=== PATIENT | female | born 1935 | race Caucasian/White ===

== ENCOUNTER → 2016-06-22 | Outpatient (CLI) | payer OTHER ==
[~2016-06-22] MED LIST: ACET-1175 PO; CARB25TA12 PO; CHOL100010 PO; CLC100X PO; CLOP1TAB15 PO; CRAN1CAP6 PO; CRDCD180 PO; DLN100 PO; DTR/5 PO; FLV400 PO; FRS/40 PO; GLCSR500 PO; INSDGI SC; LEVE750T PO; LOSA50TA6 PO; METO50TA16 PO; MIRT15TA PO; PANT1TAB48 PO; POLY335025 PO; POTA10TA PO; TRAZ50TA35 PO
== END | disposition home or self-care (01) ==
LOC: C.LABCC 08:19
PROVIDERS: ATTEND Internal Medicine
DX: G40.909 Epilepsy, unspecified, not intractable, without status epilepticus (principal)

== ENCOUNTER → 2016-06-27 | Outpatient (CLI) | payer OTHER | END | disposition home or self-care (01) | LOC: C.LABCC 16:56 | PROVIDERS: ATTEND Internal Medicine | DX: R05 Cough (principal); R09.89 Other specified symptoms and signs involving the circulatory and respiratory systems ==

== ENCOUNTER → 2016-07-15 | Outpatient (CLI) | payer OTHER ==
[2016-07-15 08:56] LABS: BLOOD UREA NITROGEN 31 mg/dl (7-18); BUN/CREATININE RATIO 23.7 (10-20); CARBON DIOXIDE 26 mmol/L (21-32); CHLORIDE 108 mmol/L (98-107); CHOLESTEROL 136 mg/dl (0-200); GLUCOSE 77 mg/dl (70-99); MAGNESIUM 2.5 mg/dl (1.8-2.4); POTASSIUM 4.2 mmol/L (3.5-5.1); SODIUM 142 mmol/L (136-145)
[2016-07-15 09:07] LABS: CHOLESTEROL/HDL RATIO 2.5; HDL CHOLESTEROL 55 mg/dl; LDL CHOLESTEROL CALCULATED 51 mg/dl; TRIGLYCERIDES 148 mg/dl (0-150); VERY LOW DENSITY LIPOPROT CALC 30 mg/dl
[2016-07-15 09:18] LABS: CALCIUM 8.9 mg/dl (8.5-10.1)
== END ==
LOC: C.LABCC 08:26
PROVIDERS: ATTEND Internal Medicine
DX: E78.5 Hyperlipidemia, unspecified (principal); K21.9 Gastro-esophageal reflux disease without esophagitis; G40.909 Epilepsy, unspecified, not intractable, without status epilepticus

== ENCOUNTER → 2016-07-20 | Outpatient (CLI) | payer OTHER ==
[2016-07-20 10:19] LABS: ESTIMATED AVERAGE GLUCOSE 134 mg/dl; HA1C FLAG Normal (Normal)
== END ==
LOC: C.LABCC 08:05
PROVIDERS: ATTEND Internal Medicine
DX: E11.9 Type 2 diabetes mellitus without complications (principal)

== ENCOUNTER → 2016-07-23 | Outpatient (CLI) | payer OTHER ==
[2016-07-23 08:46] LABS: BLOOD UREA NITROGEN 31 mg/dl (7-18); BUN/CREATININE RATIO 28.1 (10-20); CARBON DIOXIDE 27 mmol/L (21-32); CHLORIDE 108 mmol/L (98-107); GLUCOSE 79 mg/dl (70-99); MAGNESIUM 2.5 mg/dl (1.8-2.4); POTASSIUM 4.4 mmol/L (3.5-5.1); SODIUM 142 mmol/L (136-145)
== END ==
LOC: C.LABCC 08:21
PROVIDERS: ATTEND Internal Medicine
DX: N28.9 Disorder of kidney and ureter, unspecified (principal); R79.0 Abnormal level of blood mineral

== ENCOUNTER → 2016-09-03 | Outpatient (CLI) | payer OTHER ==
[~2016-09-03] MED LIST changes: -DTR/5 PO; +OXYB5TAB74 PO
== END ==
LOC: C.LABCC 07:38
PROVIDERS: ATTEND Internal Medicine
DX: R56.9 Unspecified convulsions (principal)

== ENCOUNTER → 2016-11-22 | Outpatient (CLI) | payer OTHER ==
[2016-11-22 10:09] LABS: ESTIMATED AVERAGE GLUCOSE 131 mg/dl; HA1C FLAG Normal (Normal)
== END ==
LOC: C.LABCC 09:05
PROVIDERS: ATTEND Internal Medicine
DX: E11.9 Type 2 diabetes mellitus without complications (principal)

== ENCOUNTER → 2016-12-24 | Outpatient (CLI) | payer OTHER ==
[~2016-12-24] MED LIST changes: +DTR/5 PO; -OXYB5TAB74 PO
--- NOTE | 2016-12-24 14:28 | DIAGNOSTIC IMAGING REPORT ---
MRI OF THE LEFT SHOULDER CLINICAL HISTORY: Left shoulder pain. COMPARISON STUDY: Radiograph of left shoulder dated 08/18/2011. TECHNIQUE: MRI of the left shoulder was performed utilizing various T1 and T2 weighted sequences in the axial, sagittal, coronal planes. IV contrast was not administered for this examination. Note that interpretation is suboptimal without current plain film correlate. The examination is also significantly degraded by motion artifact. FINDINGS: Rotator cuff: There is tendinopathy and full-thickness rupture of the supraspinatus and infraspinatus tendons. These are retracted by at least 3.5 cm. There is high-grade partial-thickness tearing of the subscapularis tendon. Some fibers remain intact. The teres minor is intact as imaged. There is and subacromial or subdeltoid bursal fluid. Productive change is seen at the acromioclavicular joint. Biceps tendon: There is tendinopathy with high-grade tearing of the long head of the biceps tendon. At least some fibers are likely intact, and the tendon is located within the bicipital groove. The anchor is not well visualized. Labrum: Circumferential labral tearing is suspected. This is not well assessed. Shoulder joint: There is a large joint effusion. Loose bodies/debris is noted within the inferior joint space, best seen on coronal image #8. There is superior subluxation of the humeral head. Arthritic changes noted in the glenoid with extensive cartilage loss. Arthritic change and marrow edema is also seen in the greater tuberosity of the humeral head. Musculature and soft tissues: Intramuscular edema is suggested involving the bodies of supraspinatous and interspinous. These muscles appear atrophic. IMPRESSION: 1. Severely motion compromised examination. 2. There is full-thickness rupture with retraction of the supraspinatus and infraspinatus tendons. 3. There is tendinopathy with high-grade partial-thickness tearing of the long head of the biceps tendon. 4. There is tendinopathy with high-grade partial-thickness tearing of the subscapularis tendon. 5. There is circumferential tearing/maceration of the glenoid labrum. 6. Joint effusion with joint bodies/debris. 7. Advanced arthritic changes seen at the glenohumeral articulation. 8. Edema and atrophy are suggested within the bodies of the supraspinatus and infraspinatus muscles Electronically signed by: Marcos Powers M.D. 12/24/2016 2:27 PM Dictated Date/Time: 12/24/2016 2:19 PM
== END | disposition home or self-care (01) ==
LOC: C.MRI 12:43
PROVIDERS: ATTEND Physician Assistant
DX: M75.82 Other shoulder lesions, left shoulder (principal)

== ENCOUNTER → 2016-12-31 | Outpatient (CLI) | payer OTHER ==
[2016-12-31 17:54] LABS: BASO % 0.4 %; BASO ABS # 0.03 K/uL (0-0.2); COMPLETE YES; EOS % 1.6 %; HEMATOCRIT 36.9 % (37-47); IG% 0.3 %; LYMPH % 19.5 %; LYMPH ABS # 1.44 K/uL (1.2-3.4); MEAN CELL VOLUME 94.6 fL (80-100); MEAN CORPUSCULAR HEMOGLOBIN 31.5 pg (25-34); MEAN CORPUSCULAR HGB CONC 33.3 g/dl (32-36); MEAN PLATELET VOLUME 9.5 fL (7.4-10.4); MONO % 9.1 %; NEUT % 69.1 %; PLATELET COUNT 267 K/uL (130-400)
[2016-12-31 18:34] LABS: ALT/SGPT 9 U/L (12-78); BLOOD UREA NITROGEN 24 mg/dl (7-18); BUN/CREATININE RATIO 19.8 (10-20); CALCIUM 8.9 mg/dl (8.5-10.1); CARBON DIOXIDE 22 mmol/L (21-32); CHLORIDE 106 mmol/L (98-107); CREATININE 1.21 mg/dl (0.60-1.20); GLUCOSE 113 mg/dl (70-99); POTASSIUM 4.6 mmol/L (3.5-5.1); SODIUM 140 mmol/L (136-145)
[2016-12-31 18:44] LABS: ALB/GLOB RATIO 1.1 (0.9-2); ALKALINE PHOSPHATASE 103 U/L (45-117); AST/SGOT 20 U/L (15-37)
== END ==
LOC: C.LABCC 17:01
PROVIDERS: ATTEND Internal Medicine
DX: M62.81 Muscle weakness (generalized) (principal); R20.0 Anesthesia of skin

== ENCOUNTER → 2017-01-25 | Outpatient (CLI) | payer OTHER | LOC: C.LABCC 08:03 | PROVIDERS: ATTEND Internal Medicine | DX: R53.1 Weakness (principal) ==

== ENCOUNTER → 2017-01-27 | Outpatient (CLI) | payer OTHER ==
[2017-01-27 00:37] LABS: MANUAL MICROSCOPIC REQUIRED? NO; REVIEW REQ? NO; URINE APPEARANCE CLEAR (CLEAR); URINE BILIRUBIN NEG (NEG); URINE COLOR DK YELLOW; URINE NITRITE NEG (NEG); URINE SPECIFIC GRAVITY 1.024 (1.000-1.030); UROBILINOGEN NEG (NEG); ZZURINE CULT IF INDIC CATH NO
== END ==
LOC: C.LABCC 15:04
PROVIDERS: ATTEND Internal Medicine
DX: R41.82 Altered mental status, unspecified (principal); R44.3 Hallucinations, unspecified

== ENCOUNTER → 2017-02-15 | Outpatient (CLI) | payer OTHER ==
[~2017-02-15] MED LIST changes: +PANT1TAB3 PO; -PANT1TAB48 PO
== END | disposition home or self-care (01) ==
LOC: C.PATHSPEC 17:46
PROVIDERS: ATTEND Dermatology
DX: C44.622 Squamous cell carcinoma of skin of right upper limb, including shoulder (principal)

== ENCOUNTER → 2017-02-17 | Outpatient (CLI) | payer OTHER ==
[2017-02-17 08:25] LABS: BLOOD UREA NITROGEN 25 mg/dl (7-18); BUN/CREATININE RATIO 16.6 (10-20); CALCIUM 8.8 mg/dl (8.5-10.1); CARBON DIOXIDE 24 mmol/L (21-32); CHLORIDE 106 mmol/L (98-107); CREATININE 1.49 mg/dl (0.60-1.20); GLUCOSE 107 mg/dl (70-99); SODIUM 138 mmol/L (136-145)
== END ==
LOC: C.LABCC 07:55
PROVIDERS: ATTEND Internal Medicine
DX: L03.90 Cellulitis, unspecified (principal)

== ENCOUNTER → 2017-02-21 | Outpatient (CLI) | payer OTHER ==
[2017-02-21 08:29] LABS: BASO % 0.2 %; BASO ABS # 0.02 K/uL (0-0.2); COMPLETE YES; EOS % 3.2 %; HEMATOCRIT 35.4 % (37-47); IG% 0.2 %; LYMPH % 23.4 %; LYMPH ABS # 2.02 K/uL (1.2-3.4); MEAN CELL VOLUME 96.7 fL (80-100); MEAN CORPUSCULAR HEMOGLOBIN 31.7 pg (25-34); MEAN CORPUSCULAR HGB CONC 32.8 g/dl (32-36); MEAN PLATELET VOLUME 9.9 fL (7.4-10.4); MONO % 10.7 %; NEUT % 62.3 %; PLATELET COUNT 254 K/uL (130-400); RED BLOOD COUNT 3.66 M/uL (4.2-5.4); WHITE BLOOD COUNT 8.63 K/uL (4.8-10.8)
== END ==
LOC: C.LABCC 08:01
PROVIDERS: ATTEND Internal Medicine
DX: R79.89 Other specified abnormal findings of blood chemistry (principal)

== ENCOUNTER → 2017-03-01 | Outpatient (CLI) | payer OTHER ==
[2017-03-01 10:23] LABS: BLOOD UREA NITROGEN 23 mg/dl (7-18); CARBON DIOXIDE 28 mmol/L (21-32); CREATININE 1.09 mg/dl (0.60-1.20); GLUCOSE 91 mg/dl (70-99); POTASSIUM 4.7 mmol/L (3.5-5.1); SODIUM 138 mmol/L (136-145)
--- NOTE | 2017-03-04 12:56 | CODING QUERY NO DIAGNOSIS ---
TREATMENT RENDERED WITHOUT A DIAGNOSIS Dr. Jasso, To promote full compliance with coding requirements relating to patient care, physician participation is requested in all cases of rehab department manager uncertainty. Please assist us with providing a diagnosis/symptom for the test(s) below: A diagnosis/symptom was not documented on your Order. A valid diagnosis/symptom is required to bill all insurances. Please remember that we are unable to code a diagnosis of rule out, probable, possible, questionable, or suspected. Tests that require a diagnosis: * BMP DIAGNOSIS: DATE OF SERVICE: 03/01/17 Provider Signature: Date: Thank you Johnny Garcia [facility] Information Management Once completed, please kindly fax back to [phone] For questions please call [phone]
== END | disposition home or self-care (01) ==
LOC: C.LABCC 09:41
PROVIDERS: ATTEND Internal Medicine
DX: N17.9 Acute kidney failure, unspecified (principal)

== ENCOUNTER → 2017-03-15 | Outpatient (CLI) | payer OTHER ==
[2017-03-15 18:35] LABS: INFLUENZA B ANTIGEN Neg for Influ B (NEG)
== END | disposition home or self-care (01) ==
LOC: C.LABCC 17:37
PROVIDERS: ATTEND Internal Medicine
DX: R05 Cough (principal)

== ENCOUNTER → 2017-03-17 | Outpatient (CLI) | payer OTHER ==
[2017-03-17 18:30] LABS: ALBUMIN 2.9 gm/dl (3.4-5.0); ALT/SGPT 15 U/L (12-78); AST/SGOT 26 U/L (15-37); BLOOD UREA NITROGEN 16 mg/dl (7-18); CARBON DIOXIDE 19 mmol/L (21-32); CREATININE 0.96 mg/dl (0.60-1.20); GLUCOSE 101 mg/dl (70-99)
[2017-03-17 18:32] LABS: ALKALINE PHOSPHATASE < 10 U/L (45-117); TOTAL PROTEIN 6.8 gm/dl (6.4-8.2)
[2017-03-17 18:40] LABS: SODIUM 133 mmol/L (136-145)
[2017-03-17 19:13] LABS: CALCIUM < 5.0 mg/dl (8.5-10.1); POTASSIUM > 10.0 mmol/L (3.5-5.1)
== END ==
LOC: C.LABCC 17:52
PROVIDERS: ATTEND Internal Medicine
DX: J11.1 Influenza due to unidentified influenza virus with other respiratory manifestations (principal)

== ENCOUNTER → 2017-03-18 | Outpatient (CLI) | payer OTHER ==
[2017-03-18 09:31] LABS: BASO % 0.4 %; BASO ABS # 0.04 K/uL (0-0.2); EOS % 1.4 %; EOS ABS # 0.14 K/uL (0-0.5); HEMATOCRIT 33.8 % (37-47); HEMOGLOBIN 11.1 g/dL (12.0-16.0); IG# 0.04 K/uL (0.00-0.02); LYMPH % 15.8 %; LYMPH ABS # 1.55 K/uL (1.2-3.4); MEAN CELL VOLUME 95.8 fL (80-100); MEAN CORPUSCULAR HEMOGLOBIN 31.4 pg (25-34); MEAN CORPUSCULAR HGB CONC 32.8 g/dl (32-36); MEAN PLATELET VOLUME 10.1 fL (7.4-10.4); MONO % 10.3 %; MONO ABS # 1.01 K/uL (0.11-0.59); NEUT % 71.7 %; NEUT ABS # 7.06 K/uL (1.4-6.5); PLATELET COUNT 262 K/uL (130-400); RED CELL DISTRIBUTION WIDTH CV 13.1 % (11.5-14.5); RED CELL DISTRIBUTION WIDTH SD 45.3 fL (36.4-46.3); WHITE BLOOD COUNT 9.84 K/uL (4.8-10.8)
[2017-03-18 09:40] LABS: ALBUMIN 2.6 gm/dl (3.4-5.0); ALT/SGPT 8 U/L (12-78); AST/SGOT 19 U/L (15-37); BLOOD UREA NITROGEN 15 mg/dl (7-18); CARBON DIOXIDE 25 mmol/L (21-32); CREATININE 0.89 mg/dl (0.60-1.20); GLUCOSE 68 mg/dl (70-99)
[2017-03-18 09:43] LABS: TOTAL PROTEIN 6.4 gm/dl (6.4-8.2)
[2017-03-18 10:33] LABS: POTASSIUM 3.8 mmol/L (3.5-5.1); SODIUM 140 mmol/L (136-145)
[2017-03-18 10:34] LABS: CALCIUM 8.7 mg/dl (8.5-10.1)
[2017-03-18 10:35] LABS: ALKALINE PHOSPHATASE 88 U/L (45-117)
== END | disposition home or self-care (01) ==
LOC: C.LABCC 08:55
PROVIDERS: ATTEND Internal Medicine
DX: J11.1 Influenza due to unidentified influenza virus with other respiratory manifestations (principal); G40.909 Epilepsy, unspecified, not intractable, without status epilepticus

== ENCOUNTER → 2017-04-05 | Outpatient (CLI) | payer OTHER ==
[2017-04-05 08:47] LABS: HEMOGLOBIN A1C 6.1 % (4.5-5.6)
== END ==
LOC: C.LABCC 08:01
PROVIDERS: ATTEND Internal Medicine
DX: E11.9 Type 2 diabetes mellitus without complications (principal)

== ENCOUNTER → 2017-05-24 | Outpatient (CLI) | payer OTHER | END | disposition home or self-care (01) | LOC: C.PATHSPEC 17:54 | PROVIDERS: ATTEND Plastic Surgery | DX: D04.61 Carcinoma in situ of skin of right upper limb, including shoulder (principal) ==

== ENCOUNTER → 2017-10-05 | Outpatient (CLI) | payer OTHER ==
[2017-10-05 08:40] LABS: BASO % 0.5 %; BASO ABS # 0.04 K/uL (0-0.2); EOS % 3.7 %; EOS ABS # 0.27 K/uL (0-0.5); HEMATOCRIT 33.6 % (37-47); HEMOGLOBIN 11.5 g/dL (12.0-16.0); IG# 0.02 K/uL (0.00-0.02); LYMPH % 24.6 %; LYMPH ABS # 1.81 K/uL (1.2-3.4); MEAN CELL VOLUME 94.9 fL (80-100); MEAN CORPUSCULAR HEMOGLOBIN 32.5 pg (25-34); MEAN CORPUSCULAR HGB CONC 34.2 g/dl (32-36); MONO % 8.1 %; NEUT % 62.8 %; NEUT ABS # 4.63 K/uL (1.4-6.5); PLATELET COUNT 282 K/uL (130-400); RED CELL DISTRIBUTION WIDTH CV 14.1 % (11.5-14.5); WHITE BLOOD COUNT 7.37 K/uL (4.8-10.8)
[2017-10-05 08:52] LABS: ALBUMIN 3.1 gm/dl (3.4-5.0); ALKALINE PHOSPHATASE 98 U/L (45-117); ALT/SGPT 8 U/L (12-78); AST/SGOT 17 U/L (15-37); BLOOD UREA NITROGEN 28 mg/dl (7-18); CARBON DIOXIDE 26 mmol/L (21-32); CREATININE 1.09 mg/dl (0.60-1.20); GLUCOSE 83 mg/dl (70-99); POTASSIUM 4.1 mmol/L (3.5-5.1); SODIUM 139 mmol/L (136-145); TOTAL PROTEIN 6.6 gm/dl (6.4-8.2)
[2017-10-05 09:45] LABS: HEMOGLOBIN A1C 6.1 % (4.5-5.6)
== END ==
LOC: C.LABCC 08:26
PROVIDERS: ATTEND Internal Medicine
DX: E11.9 Type 2 diabetes mellitus without complications (principal); R56.9 Unspecified convulsions

== ENCOUNTER 2018-07-22 22:12 | Inpatient (IN) ==
[2018-07-22] MEDS ORDERED: VANCOMYCIN CONSULT ACTIVE PRN (22:29)
[2018-07-22] MEDS ORDERED: VANCOMYCIN HCL 2,000 MG in SODIUM CHLORIDE 0.9% 500 ML IV ONE (22:29)
[2018-07-22] MEDS ORDERED: SODIUM CHLORIDE 0.9% 1000ML 1,000 ML IV ONE (22:29)
[2018-07-22] MEDS ORDERED: PIPERACILL/TAZOBAC CONSULT ACTIVE PRN (22:29)
[2018-07-22] MEDS ORDERED: PIPERACILLIN/TAZOBACTAM 4.5 GM/120 ML BAG IV ONE (22:29)
[2018-07-22] MEDS ORDERED: ALBUT/IPRATROP 3MG/0.5MG NEB 3 ML VIAL NEB STA (22:39)
[2018-07-22] MEDS ORDERED: LEVOFLOXACIN/D5W 750 MG/150 ML BAG IV STA (22:39)
[2018-07-22 23:09] LABS: Hematocrit (blood only) 31.6 % (37-47); Hemoglobin 11.1 g/dL (12.0-16.0); Mean Corpuscular Hgb Conc 35.1 g/dL (32-36); Mean Platelet Volume 9.6 fL (7.4-10.4); Platelet Count 256 K/uL (130-400); RDW Standard Deviation 44.6 fL (36.4-46.3); Red Blood Count 3.36 M/uL (4.2-5.4); White Blood Count 21.16 K/uL (4.8-10.8)
[2018-07-22 23:11] LABS: Base Excess VBG -1.1 mEq/L; Oxygen Saturation VBG 90.7 %; pH VBG 7.46 (7.36-7.41)
[2018-07-22 23:20] LABS: INR 1.2 (0.9-1.1); Partial Thromboplastin Ratio 1.3; Partial Thromboplastin Time 34.6 Seconds (21.0-31.0); Prothrombin Time 12.3 Seconds (9.0-12.0)
[2018-07-22 23:28] LABS: Alanine Aminotransferase < 6 U/L (12-78); Albumin Level 2.4 gm/dl (3.4-5.0); Aspartate Aminotransferase 24 U/L (15-37); Blood Urea Nitrogen 31 mg/dl (7-18); Calcium 8.7 mg/dl (8.5-10.1); Carbon Dioxide 25 mmol/L (21-32); Chloride 105 mmol/L (98-107); Est GFR (African American) 42.6; Est GFR (Non-African American) 36.7; Glucose 151 mg/dl (70-99); Potassium 4.6 mmol/L (3.5-5.1); Sodium 136 mmol/L (136-145)
[2018-07-22 23:31] LABS: Albumin Globulin Ratio 0.5 (0.9-2); Alkaline Phosphatase 109 U/L (45-117); Bilirubin,Total 0.5 mg/dl (0.2-1); Globulin 4.4 gm/dl (2.5-4.0); Total Protein 6.8 gm/dl (6.4-8.2)
[2018-07-22 23:34] LABS: Appearance Urine Turbid (Clear); Bacteria Urine Automated 2+ (Negative); Bilirubin Urine Negative (Negative); Color Urine Dark Yellow; Epithelial Cell Urine Auto >30 /lpf (0-5); Glucose Urine UA Negative (Negative); Ketones Urine Trace (Negative); Leukocyte Esterase Urine 3+ (Negative); Nitrite Urine Positive (Negative); Protein Urine 2+ (Negative); Specific Gravity Urine 1.022 (1.000-1.030); Urobilinogen Urine Negative (Negative); WBC Urine Automated >30 /hpf (0-5)
[2018-07-22 23:53] LABS: Basophils # (auto) 0.03 K/uL (0-0.2); Basophils % (auto) 0.1 %; Dohle Bodies 1+; Immature Granulocytes # (auto) 0.09 K/uL (0.00-0.02); Immature Granulocytes % (auto) 0.4 %; Lymphocytes # (auto) 0.56 K/uL (1.2-3.4); Lymphocytes % (auto) 2.6 %; Monocytes # (auto) 1.39 K/uL (0.11-0.59); Monocytes % (auto) 6.6 %; Neutrophils # (auto) 19.09 K/uL (1.4-6.5); Neutrophils % (auto) 90.3 %
[2018-07-23 00:10] LABS: Cast Urine Automated 0 /lpf (0-5)
--- NOTE | 2018-07-23 03:30 | History & Physical Report ---
Date of Service July 23, 2018 Assessment & Plan (1) Sepsis: 83-year-old female with history of Parkinson's, CVA, seizures, type 2 diabetes, dementia presents with fevers and concern for sepsis secondary to pneumonia. Patient is a resident of [facility]. Concern for sepsis secondary to healthcare associated pneumonia versus UTI Right-sided rhonchi and wheezing, chest x-ray showed some right-sided infiltrates Continuing Vanco/Zosyn Albuterol nebs every 4 scheduled Continuing fluids, normal saline 80 cc/h Blood cultures/urine cultures ordered History of Parkinson's Continue carbidopa/levodopa Continue Nuplavid History of CVA Continue clopidogrel Hypertension Continue furosemide, losartan, metoprolol Diabetes Continue insulin GERD Continue PPI DVT prophylaxis Heparin subcu CODE STATUS DNR/DNI (2) Pneumonia: (3) UTI (urinary tract infection): (4) Parkinson disease: (5) Seizures: (6) Metabolic encephalopathy: (7) Diabetes mellitus: (8) GERD (gastroesophageal reflux disease): (9) HTN (hypertension): History of Present Illness Primary Care Provider: [facility] 83-year-old female with past medical history of Parkinson's, CVA, seizures, type 2 diabetes presents from [facility]. Patient is accompanied with her daughter who states that she is been treated for a UTI over the past 1 week. Her daughter states that she has confusion at baseline, but has been more confused and irritable over the past week. She began to have fevers last night, high of 102 Fahrenheit. Patient is a poor historian, but denies having any dys uria, shortness of breath, change in appetite, nausea/vomiting/diarrhea. The daughter states that she does not have any bedsores and gets regular skin checks at [facility]. Patient does endorse a cough recently. Today she is on 2 L nasal cannula. No oxygen requirement at home. Allergies Allergy/AdvReac Type Severity Reaction Status Date / Time No Known Allergies Allergy Unverified 07/23/18 01:01 Home Medications Home Medications Medication Instructions Recorded Confirmed Type B complex with C#20-folic acid 1 cap PO DAILY 11/16/17 07/23/18 History [Renal Caps] acetaminophen 650 mg PO Q8 PRN 11/16/17 07/23/18 History alum-mag hydroxide-simeth [Antacid 30 ml PO Q4H PRN 11/16/17 07/23/18 History Liquid] bisacodyl [Dulcolax (bisacodyl)] 10 mg [facility] DIRECTED 11/16/17 07/23/18 History carbidopa-levodopa 1.5 tab PO QID 11/16/17 07/23/18 History cholecalciferol (vitamin D3) 5 tab PO DAILY 11/16/17 07/23/18 History [Vitamin D3] clopidogrel 75 mg PO DAILY 11/16/17 07/23/18 History docusate sodium 100 mg PO BID 11/16/17 07/23/18 History folic acid 0.4 mg PO DAILY 11/16/17 07/23/18 History furosemide 20 mg PO DAILY 11/16/17 07/23/18 History hydrocodone-acetaminophen 2 tab PO BID 11/16/17 07/23/18 History insulin detemir U-100 [Levemir 2 unit SUBCUT PM 11/16/17 07/23/18 History U-100 Insulin] insulin lispro [Humalog U-100 1 sliding scale dose SUBCUT UD 11/16/17 07/23/18 History Insulin] ketotifen fumarate 1 drp OPHTHALMIC (EYE) Q12H 11/16/17 07/23/18 History levetiracetam 500 mg PO BID 11/16/17 07/23/18 History losartan 25 mg PO DAILY 11/16/17 07/23/18 History losartan 50 mg PO DAILY 11/16/17 07/23/18 History magnesium hydroxide [Milk of 30 ml PO DIRECTED PRN 11/16/17 07/23/18 History Magnesia] metoprolol tartrate 50 mg PO Q12H 11/16/17 07/23/18 History mirtazapine 15 mg PO HS 11/16/17 07/23/18 History pantoprazole 40 mg PO DAILY 11/16/17 07/23/18 History peg 400-propylene glycol [Systane 1 drp OPB TID 11/16/17 07/23/18 History Ultra] phenytoin sodium extended 100 mg PO BID 11/16/17 07/23/18 History polyethylene glycol 3350 14 g PO DIRECTED 11/16/17 07/23/18 History sodium chloride 1 drp OPB BID 11/16/17 07/23/18 History acetaminophen [Tylenol] 650 mg PO QPM 07/23/18 07/23/18 History cefuroxime axetil 500 mg PO BID 07/23/18 07/23/18 History pimavanserin [Nuplazid] 34 mg PO QAM 07/23/18 07/23/18 History potassium chloride 10 meq PO BID 07/23/18 07/23/18 History Past Med/Surg History Medical History Parkinson disease Seizure Stroke TIA (transient ischemic attack) Social History Preferred Language: Bengali Communication Ability: Effective Beliefs That Will Affect Care: None Current Living Situation: Residential Other Information That Helps Us Care for You: No Feels Safe at Home: Yes Safety Concerns: Feels Safe At This Time Smoking Status: Former smoker Hx Alcohol Use: No Hx Substance Use: No Review of Systems Review of Systems: All systems reviewed & are unremarkable except as noted in HPI & below Physical Exam Constitutional: well developed, well nourished and + ill appearing; no acute distress Eyes: PERRL, conjunctivae normal, anicteric sclerae ENMT: external ear and nose normal, oropharynx normal Neck: trachea midline, no thyromegaly Respiratory: normal respiratory effort; no respiratory distress, no labored breathing, no retractions and no cough Auscultation: + rhonchi (right-sided ) and + wheezes (right sided ) Cardiovascular: RRR, no murmur, no edema Gastrointestinal (Abdomen): normal bowel sounds, soft, nontender, no hepatosplenomegaly Musculoskeletal: no cyanosis or clubbing, extremities motor strength 5/5 Skin: no rashes, warm and dry Neurologic: PERRL, EOMI, accommodation nl, no face palsy, no dysarthria Psychiatric: Orientation: alert; + not oriented x 3 Results & Data Vital Signs (Past 12 Hours) Vital Signs Temp Pulse Pulse Resp BP BP Pulse Ox 07/23/18 01:39 82 22 146/85 H 94 07/23/18 00:34 89 22 126/66 92 07/22/18 23:50 90 20 128/43 L 95 07/22/18 22:52 72 16 89 L 07/22/18 22:29 89 L 07/22/18 22:19 37.4 C 77 25 H 84/59 L 88 L Supervising Physician Co-Signing Physician Notes Attending addendum: I have physically seen this patient, have supervised the medical residents activities, and agree with the H&P unless as otherwise noted. Assessment and Plan: Sepsis- HCAP/UTI. Empiric treatment with vancomycin IV and Zosyn IV. Follow sputum culture and urine culture and sensitivity. NSS 80 mils per hour. Duonebs every 4 hours while awake and every 2 hours when necessary.. History CVA/hypertension- Continue clopidogrel, furosemide, losartan and metoprolol. Remainder of orders and notations as noted. Resident Activity Tracking Resident Involvement: Resident Care Provided Care Provided: Adult Hospital Medicine (1) UTI (urinary tract infection) Hematuria presence: with hematuria Urinary tract infection type: site unspecified Qualified Code(s): N39.0 - Urinary tract infection, site not specified; R31.9 - Hematuria, unspecified (2) Sepsis Sepsis type: sepsis due to unspecified organism Qualified Code(s): A41.9 - Sepsis, unspecified organism (3) Pneumonia Pneumonia type: due to unspecified organism
[2018-07-23] MEDS ORDERED: MAGNESIUM HYDROXIDE SUSP 30 ML UDC PO PRN (04:17)
[2018-07-23] MEDS ORDERED: PIPERACILLIN/TAZOBACTAM 4.5 GM in DEXTROSE 5% 100 ML IV STA (04:17)
[2018-07-23] MEDS ORDERED: ACETAMINOPHEN 325 MG TAB PO PRN (04:17)
[2018-07-23] MEDS ORDERED: POLYETHYLENE (MIRALAX) 17 GM PACK PO PRN (04:17)
[2018-07-23] MEDS ORDERED: VANCOMYCIN CONSULT ACTIVE PRN (04:17)
[2018-07-23] MEDS ORDERED: PIPERACILL/TAZOBAC CONSULT ACTIVE PRN (04:17)
[2018-07-23] MEDS: SODIUM CHLORIDE 0.9% 1000ML 1,000 ML IV SCH ×2 (04:40→16:02)
[2018-07-23] MEDS: PIPERACILLIN/TAZOBACTAM 3.375 GM in DEXTROSE 5% 100 ML IV SCH ×3 (04:45→19:34)
[2018-07-23] MEDS ORDERED: GLUCOSE 10 TABS/TUBE PO PRN (05:00)
[2018-07-23] MEDS ORDERED: CARBOHYDRATES FOR HYPOGLYCEMIA PO PRN (05:00)
[2018-07-23] MEDS ORDERED: GLUCOSE 40% GEL 15 GM TUBE PO PRN (05:00)
[2018-07-23] MEDS ORDERED: DEXTROSE 50% 50 ML SYRINGE IV PRN (05:00)
[2018-07-23] MEDS ORDERED: GLUCAGON FOR INJ 1 MG VIAL SQ PRN (05:00)
[2018-07-23] MEDS: ALBUTEROL 0.083% NEBU SOLN 3 ML VIAL NEB SCH ×6 (05:27→23:10)
[2018-07-23 07:02] LABS: Hematocrit (blood only) 31.5 % (37-47); Hemoglobin 10.5 g/dL (12.0-16.0); Mean Corpuscular Hgb Conc 33.3 g/dL (32-36); Mean Corpuscular Volume 95.7 fL (80-100); Mean Platelet Volume 9.4 fL (7.4-10.4); Platelet Count 232 K/uL (130-400); RDW Coefficient of Variation 13.1 % (11.5-14.5); RDW Standard Deviation 45.7 fL (36.4-46.3); Red Blood Count 3.29 M/uL (4.2-5.4); White Blood Count 18.65 K/uL (4.8-10.8)
[2018-07-23 07:28] LABS: BUN Creatinine Ratio 19.5 (10-20); Calcium 8.4 mg/dl (8.5-10.1); Est GFR (African American) 42.6; Est GFR (Non-African American) 36.7; Potassium 4.1 mmol/L (3.5-5.1)
[2018-07-23] MEDS: PANTOprazole 40 MG TAB PO SCH (07:34)
[2018-07-23] MEDS: levETIRAcetam 500 MG TAB PO SCH ×2 (07:35→21:02)
[2018-07-23] MEDS: CLOPIDOGREL BISULFATE 75 MG TAB PO SCH (07:35)
[2018-07-23] MEDS: FOLIC ACID 400 MCG TAB PO SCH (07:35)
[2018-07-23] MEDS: METOPROLOL TARTRATE 50 MG TAB PO SCH ×2 (07:35→21:04)
[2018-07-23] MEDS: CARBIDOPA/LEVODOPA 25/100MG TAB PO SCH ×4 (07:36→21:05)
[2018-07-23] MEDS: LOSARTAN POTASSIUM 50 MG TAB PO SCH (07:36)
[2018-07-23] MEDS: DOCUSATE SODIUM 100 MG CAP PO SCH ×2 (07:36→21:01)
[2018-07-23] MEDS: POTASSIUM CHLORIDE 10 MEQ TABCR PO SCH ×2 (07:36→21:02)
[2018-07-23] MEDS: LOSARTAN POTASSIUM 25 MG TAB PO SCH (07:38)
[2018-07-23] MEDS: FUROSEMIDE 20 MG TAB PO SCH (07:38)
[2018-07-23] MEDS: HEPARIN SOD 5,000 UNIT/0.5 ML VIAL SQ SCH ×2 (07:39→21:01)
[2018-07-23] MEDS: PHENYTOIN SODIUM ER 100 MG CAP PO SCH ×2 (07:39→21:01)
[2018-07-23] MEDS: SODIUM CHLORIDE 5% OP SOLN 15 ML BTL OPB SCH ×2 (07:39→21:04)
[2018-07-23] MEDS ORDERED: HYDROCODONE/ACETAMOPHEN 5/325MG TAB PO ONE (07:44)
[2018-07-23] MEDS: HYDROCODONE/ACETAMOPHEN 5/325MG TAB PO SCH ×2 (07:45→21:07)
--- NOTE | 2018-07-23 08:05 | Hospitalist Progress Note ---
Date of Service July 23, 2018 Assessment & Plan (1) Sepsis: 83-year-old female with history of Parkinson's, CVA, seizures, type 2 diabetes, dementia presents with fevers and concern for sepsis secondary to pneumonia. Patient is a resident of [facility]. Concern for sepsis secondary to healthcare associated pneumonia versus UTI, urine cuture from 07/21 with e coli sensitivities pending mrsa nasal swab is negative Right-sided rhonchi and wheezing, chest x-ray showed some right-sided infiltrates Continuing Zosyn Albuterol nebs every 4 scheduled Continuing fluids, normal saline 80 cc/h Blood cultures/urine cultures ordered History of Parkinson's Continue carbidopa/levodopa Continue Nuplavid History of CVA Continue clopidogrel Hypertension Continue furosemide, losartan, metoprolol Diabetes Continue insulin GERD Continue PPI DVT prophylaxis Heparin subcu CODE STATUS DNR/DNI (2) Pneumonia: (3) UTI (urinary tract infection): (4) Parkinson disease: (5) Seizures: (6) Metabolic encephalopathy: (7) Diabetes mellitus: (8) GERD (gastroesophageal reflux disease): (9) HTN (hypertension): Subjective Patient is fatigued from being up most of the night she does have a loose productive cough. She is having also some increased urination dysuria. Working diagnosis on admission is both right middle to lower lobe lung infiltrate seen on chest x-ray and also possible UTI. Therefore she remains on vancomycin and Zosyn although her nasal swab is been negative Review of Systems Review of Systems: ROS: well nourished well developed. She is fatigued No double vision blurry vision No problems with speech or swallowing No palpitations, chest pain or pressure No Wheezing or breathing issues No abdominal pain nausea vomiting diarrhea changes in appetite or weight Has had some burning urine and urine frequency No focal joint pain or muscle pain No skin rashes or oral lesions No unusual bruising or bleeding No focused back pain or numbness or loss of strength No changes in memory or confusion Physical Exam Physical Exam: The patient appeared well nourished and normally developed. Vital signs as documented. Head exam is unremarkable. normocephalic, atraumatic Neck is without jugular venous distension, thyromegaly, or lymphademopathy Lungs are with rhonchi to the right base area Cardiac exam reveals Rhythm is regular. First and second heart sounds normal. Abdominal exam reveals normal bowel sounds, no masses, no organomegaly, mild suprapubic tenderness Extremities are nonedematous and both pedal pulses are present Neurologic exam is A&Ox3, no focal deficits, strength is equal bilateral Psychologically seems neither anxious or depressed Skin is warm Dry without bruises or lesions Results & Data Vital Signs (Past 12 Hours) Vital Signs Temp Pulse Pulse Resp BP BP Pulse Ox 07/23/18 07:15 81 18 97 07/23/18 06:58 36.7 C 82 21 155/65 H 95 07/23/18 05:28 85 18 91 07/23/18 05:00 93 H 07/23/18 04:20 38.8 C H 101 H 22 131/75 95 07/23/18 01:39 82 22 146/85 H 94 07/23/18 00:34 89 22 126/66 92 07/22/18 23:50 90 20 128/43 L 95 07/22/18 22:52 72 16 89 L 07/22/18 22:29 89 L 07/22/18 22:19 37.4 C 77 25 H 84/59 L 88 L (1) UTI (urinary tract infection) Hematuria presence: with hematuria Urinary tract infection type: site unspecified Qualified Code(s): N39.0 - Urinary tract infection, site not specified; R31.9 - Hematuria, unspecified (2) Sepsis Sepsis type: sepsis due to unspecified organism Qualified Code(s): A41.9 - Sepsis, unspecified organism (3) Pneumonia Pneumonia type: due to unspecified organism
--- NOTE | 2018-07-23 08:19 | XRay Report ---
XR chest 1V portable CLINICAL HISTORY: Sepsis COMPARISON STUDY: Chest radiograph February 04, 2011. FINDINGS: Right mid and lower lung hazy opacity is present. Left lung is clear. There is no pneumotho rax or pleural effusion. There is no evidence for pulmonary edema. Cardiomediastinal silhouette is un remarkable. IMPRESSION: Right lower lung opacity which favors pneumonia. Radiographic follow-up to ensure resolu tion is recommended. Electronically signed by: Nico Lima M.D. 07/23/2018 8:18 AM
[2018-07-23] MEDS ORDERED: BISACODYL 10 MG SUPP PR PRN (09:00)
[2018-07-23 09:08] LABS: Basophils # (auto) 0.02 K/uL (0-0.2); Basophils % (auto) 0.1 %; Immature Granulocytes # (auto) 0.09 K/uL (0.00-0.02); Immature Granulocytes % (auto) 0.5 %; Lymphocytes % (auto) 3.8 %; Neutrophils # (auto) 16.54 K/uL (1.4-6.5); Neutrophils % (auto) 88.6 %
--- NOTE | 2018-07-23 11:51 | Pharmacy Report ---
Pharmacy Abx Initial Consult - Date of Service July 23, 2018 - Pharmacy Dosing Scope Date of Consult: 07/22/18 Consultation requested by: Dr. Ann Pharmacy is consulted to initiate Vancomycin and Zosyn IV dosing therapy, order appropriate labs and adjust drug dose/frequency. - Subjective The patient is a 83 year old F admitted on 07/23/18 03:20. - Objective Height: 5 ft 3 in Weight: 76.3 kg Vital Signs (Past 12hrs): Vital Signs Temp Pulse Pulse Resp BP Pulse Ox 07/23/18 11:20 67 14 98 07/23/18 10:52 36.9 C 69 19 113/56 L 96 07/23/18 07:15 81 18 97 07/23/18 06:58 36.7 C 82 21 155/65 H 95 07/23/18 05:28 85 18 91 07/23/18 05:00 93 H 07/23/18 04:20 38.8 C H 101 H 22 131/75 95 07/23/18 01:39 82 22 146/85 H 94 07/23/18 00:34 89 22 126/66 92 07/22/18 23:50 90 20 128/43 L 95 Lab Results (24hrs): Laboratory Tests (24 Hours) 07/23/18 07/23/18 07/22/18 06:48 06:48 22:46 WBC 18.65 H Neut # (Auto) 16.54 H Creatinine 1.35 H Est Cr Clr Drug Dosing 32.0 Procalcitonin 0.34 07/22/18 07/22/18 22:46 22:46 WBC 21.16 H Neut # (Auto) 19.09 H Creatinine 1.35 H Est Cr Clr Drug Dosing 32.0 Procalcitonin Micro Results: 07/22/18 22:26 Urine Culture - Pending Urine,Straight Cath 07/22/18 22:57 Aerobic Blood Culture - Pending Blood Anaerobic Blood Culture - Pending 07/22/18 22:46 Aerobic Blood Culture - Pending Blood Anaerobic Blood Culture - Pending - Risk Factors for Resistance * Resident in a senior living or extended-care facility - [facility] - Assessment & Plan Assessment 83 year old F on empiric IV Vancomycin and Zosyn for sepsis secondary to pneumonia vs. UTI * Urine cultre from 07/21/18 (prior to admission) grew E. coli - sensitivities pending * MRSA nasal swab negative, unlikely to be MRSA pneumonia * Discussed with Dr. Nelson - he wants to continue both Vancomycin and Zosyn for now. May consider de-escalation tomorrow, pending urine and blood culture results. Plan Vancomycin IV * Estimated PK Parameters: Moose 0.031 hr-1, t1/2 22.4 hr * Loading dose: 2000 mg (~26 mg/kg) IV x 1 was given in the ED on 07/22 @ 2342 * Maintenance dose: 1000 mg IV (~13 mg/kg) every 24 hours * Goal trough level for sepsis secondary to pneumonia/UTI : 15 to 20 mcg/mL * Trough level ordered for 07/25/18 @ 2130 (prior to 3rd dose and therefore not reflective of steady state, but would like to assess dosing regimen earlier due to renal impairment) Piperacillin/tazobactam * 4.5 g bolus administered over 30 minutes, then 3.375 g IV extended infusion every 8 hours for CrCl greater than 20 mL/min Pharmacy will continue to follow and will adjust dose/frequency as necessary. Thank you.
--- NOTE | 2018-07-23 19:37 | Emergency Department Note ---
Entered by Nolvia Ling acting as a scribe for Kimani Ackerman MD History of Present Illness General Chief complaint: Fever Stated complaint: FEVER Time Seen by Provider: 07/22/18 22:28 Source: patient History of Present Illness Onset (ago): day(s) (recently) Location: head Pain Consistency: + other (persistent) Quality: + other (fever) Associated symptoms: + cough (dry) and + other (positive congestion; negative abdominal pain; negative urinary symptoms); no chest pain, no rash and no shortness of breath The patient is a 83 year old white female w/ PMHx of Parkinson's disease, di abetes, HTN, and GERD who presents to the ED w/ CC of a persistent fever beginning recently. The patient states that she is tired. She states that she has had a dry cough and congestion during this time. The patient denies abdominal pain, urinary symptoms, rash, shortness of breath, and chest pain. Home Medications Home Medications Medication Instructions Recorded Confirmed Type B complex with C#20-folic acid 1 cap PO DAILY 11/16/17 07/23/18 History [Renal Caps] acetaminophen 650 mg PO Q8 PRN 11/16/17 07/23/18 History alum-mag hydroxide-simeth [Antacid 30 ml PO Q4H PRN 11/16/17 07/23/18 History Liquid] bisacodyl [Dulcolax (bisacodyl)] 10 mg AK DIRECTED 11/16/17 07/23/18 History carbidopa-levodopa 1.5 tab PO QID 11/16/17 07/23/18 History cholecalciferol (vitamin D3) 5 tab PO DAILY 11/16/17 07/23/18 History [Vitamin D3] clopidogrel 75 mg PO DAILY 11/16/17 07/23/18 History docusate sodium 100 mg PO BID 11/16/17 07/23/18 History folic acid 0.4 mg PO DAILY 11/16/17 07/23/18 History furosemide 20 mg PO DAILY 11/16/17 07/23/18 History hydrocodone-acetaminophen 2 tab PO BID 11/16/17 07/23/18 History insulin detemir U-100 [Levemir 2 unit SUBCUT PM 11/16/17 07/23/18 History U-100 Insulin] insulin lispro [Humalog U-100 1 sliding scale dose SUBCUT UD 11/16/17 07/23/18 H istory Insulin] ketotifen fumarate 1 drp OPHTHALMIC (EYE) Q12H 11/16/17 07/23/18 History levetiracetam 500 mg PO BID 11/16/17 07/23/18 History losartan 25 mg PO DAILY 11/16/17 07/23/18 History losartan 50 mg PO DAILY 11/16/17 07/23/18 History magnesium hydroxide [Milk of 30 ml PO DIRECTED PRN 11/16/17 07/23/18 History Magnesia] metoprolol tartrate 50 mg PO Q12H 11/16/17 07/23/18 History mirtazapine 15 mg PO HS 11/16/17 07/23/18 History pantoprazole 40 mg PO DAILY 11/16/17 07/23/18 History peg 400-propylene glycol [Systane 1 drp OPB TID 11/16/17 07/23/18 History Ultra] phenytoin sodium extended 100 mg PO BID 11/16/17 07/23/18 History polyethylene glycol 3350 14 g PO DIRECTED 11/16/17 07/23/18 History sodium chloride 1 drp OPB BID 11/16/17 07/23/18 History acetaminophen [Tylenol] 650 mg PO QPM 07/23/18 07/23/18 History cefuroxime axetil 500 mg PO BID 07/23/18 07/23/18 History pimavanserin [Nuplazid] 34 mg PO QAM 07/23/18 07/23/18 History potassium chloride 10 meq PO BID 07/23/18 07/23/18 History Allergies Allergy/AdvReac Type Severity Reaction Status Date / Time No Known Allergies Allergy Unverified 07/23/18 01:01 Past Med/Surg History Medical History Parkinson disease Seizure Stroke TIA (transient ischemic attack) Social History Preferred Language: Kittitian Communication Ability: Effective Beliefs That Will Affect Care: None Current Living Situation: Residential Other Information That Helps Us Care for You: No Feels Safe at Home: Yes Safety Concerns: Feels Safe At This Time Smoking Status: Former smoker Hx Alcohol Use: No Hx Substance Use: No Review of Systems See HPI for pertinent positives & negatives. and A total of 10 systems reviewed and were otherwise negative Physical Exam Vital Signs Vital Signs - 24 hr 07/22/18 22:19 07/22/18 22:29 07/22/18 22:52 Temperature 37.4 C Temperature Source Oral Sepsis Recent Fever Within 48 Hours Yes Sepsis Action Taken by Nursing No Action Required Pulse Rate 77 Pulse Rate [Right Finger] 72 Pulse Rhythm [Right Finger] Pulse Strength [Right Finger] Respiratory Rate 25 H 16 Respiratory Effort / Characteristics Non-Labored Spontaneous Respiratory Depth Blood Pressure 84/59 L Blood Pressure [Right Arm] Blood Pressure Mean 67 Blood Pressure Mean [Right Arm] Blood Pressure Position Lying Blood Pressure Position [Right Arm] Pulse Oximetry 88 L 89 L 89 L Oxygen Delivery Method Room Air Room Air Room Air Oxygen Flow Rate 07/22/18 23:50 07/23/18 00:34 07/23/18 01:39 Temperature Temperature Source Sepsis Recent Fever Within 48 Hours Sepsis Action Taken by Nursing Pulse Rate Pulse Rate [Right Finger] 90 89 82 Pulse Rhythm [Right Finger] Regular Pulse Strength [Right Finger] Normal Respiratory Rate 20 22 22 Respiratory Effort / Characteristics Non-Labored Respiratory Depth Normal Blood Pressure Blood Pressure [Right Arm] 128/43 L 126/66 146/85 H Blood Pressure Mean Blood Pressure Mean [Right Arm] 71 86 105 Blood Pressure Position Blood Pressure Position [Right Arm] Lying Lying Pulse Oximetry 95 92 94 Oxygen Delivery Method Nasal Cannula Nasal Cannula Nasal Cannula Oxygen Flow Rate 2 2 GENERAL: Mildly ill in appearance, non-toxic. NC in place. EYE EXAM: Normal conjunctiva. PERRL, no anisocoria and EOM's grossly intact w/o pain. OROPHARYNX: Dry mucus membranes. Grossly normal dentition. NECK: Supple, no nuchal rigidity, no adenopathy, non-tender. no signs of meningismus. LUNGS: Normal chest wall mechanics. Coarse breath sounds throughout. NC in place. HEART: NSR, no MRG. ABDOMEN: Abdomen soft, non-tender, normo-active bowel sounds, no masses, no rebound or guarding. BACK: No CVA TTP. SKIN: No rashes and no bruising. UPPER EXTREMITIES: Upper extremities are grossly normal. LOWER EXTREMITIES: No pitting edema. No calf pain. NEURO EXAM: A&O x3, cranial nerves II-XII grossly intact, normal speech, moves all 4 extremities on command w/o issue. Baseline essential tremor. Course 2234: The patient was evaluated in room B9, and a complete history and physical examination were performed. 0007: I updated the patient about all the results. 0036: I discussed the case with Dr. [facility] Hospitalist who accepts the patient for further evaluation. Administered Medications Acetaminophen (Tylenol) 650 mg PO Q4H PRN PRN Reason: Pain or Fever Stop: 08/22/18 04:16 Last Admin: 07/23/18 04:37 Dose: 650 mg Documented by: [id number] Hydrocodone Bitart/Acetaminophen (Mcfarlan 5/325) 2 tab PO BID [facility] Stop: 08/06/18 08:59 Last Admin: 07/23/18 07:45 Dose: 2 tab Documented by: [id number] Albuterol (Ventolin 0.083% 2.5mg/3ml) 2.5 mg NEB Q4R [facility] Stop: 08/22/18 04:16 Last Admin: 07/23/18 19:00 Dose: 2.5 mg Documented by: [id number] Admin: 07/23/18 15:12 Dose: 2.5 mg Documented by: [id number] Admin: 07/23/18 11:19 Dose: 2.5 mg Documented by: [id number] Admin: 07/23/18 07:15 Dose: 2.5 mg Documented by: [id number] Admin: 07/23/18 05:27 Dose: 2.5 mg Documented by: [id number] Carbidopa/Levodopa (Sinemet 25/100 Mg) 1.5 tab PO QID JA Stop: 08/22/18 08:59 Last Admin: 07/23/18 16:03 Dose: 1.5 tab Documented by: [id number] Admin: 07/23/18 11:43 Dose: 1.5 tab Documented by: [id number] Admin: 07/23/18 07:36 Dose: 1.5 tab Documented by: [id number] Clopidogrel Bisulfate (Plavix) 75 mg PO DAILY JA Stop: 08/22/18 08:59 Last Admin: 07/23/18 07:35 Dose: 75 mg Documented by: [id number] Docusate Sodium (Colace) 100 mg PO BID JA Stop: 08/22/18 08:59 Last Admin: 07/23/18 07:36 Dose: 100 mg Documented by: [id number] Folic Acid (Folvite) 400 mcg PO DAILY JA Stop: 08/22/18 08:59 Last Admin: 07/23/18 07:35 Dose: 400 mcg Documented by: [id number] Furosemide (Lasix) 20 mg PO DAILY JA Stop: 08/22/18 08:59 Last Admin: 07/23/18 07:38 Dose: 20 mg Documented by: [id number] Heparin Sodium (Porcine) (Heparin Sodium (Porcine)) 5,000 units SQ Q12 JA Stop: 08/22/18 08:59 Last Admin: 07/23/18 07:39 Dose: 5,000 units Documented by: [id number] Cosigned by: [id number] Sodium Chloride (Nss 1000ml) 1,000 mls @ 80 mls/hr IV .[id number] [facility] Stop: 08/22/18 04:16 Last Admin: 07/23/18 16:02 Dose: 80 mls/hr Documented by: [id number] Infusion: 07/23/18 16:02 Dose: 80 mls/hr Documented by: [id number] Admin: 07/23/18 04:40 Dose: 80 mls/hr Documented by: [id number] Piperacillin Sod/Tazobactam (Sod 3.375 gm/ Dextrose) 115 mls @ 28.75 mls/hr IV Q8H [facility]; Protocol Stop: 07/30/18 04:29 Last Infusion: 07/23/18 15:16 Dose: 0 mls/hr Documented by: [id number] Admin: 07/23/18 11:43 Dose: 28.8 mls/hr Documented by: [id number] Infusion: 07/23/18 08:28 Dose: 0 mls/hr Documented by: [id number] Admin: 07/23/18 04:45 Dose: 28.8 mls/hr Documented by: [id number] Levetiracetam (Keppra) 500 mg PO BID JA Stop: 08/22/18 08:59 Last Admin: 07/23/18 07:35 Dose: 500 mg Documented by: [id number] Losartan Potassium (Cozaar) 25 mg PO DAILY JA Stop: 08/22/18 08:59 Last Admin: 07/23/18 07:38 Dose: 25 mg Documented by: [id number] Losartan Potassium (Cozaar) 50 mg PO DAILY JA Stop: 08/22/18 08:59 Last Admin: 07/23/18 07:36 Dose: 50 mg Documented by: [id number] Metoprolol Tartrate (Lopressor) 50 mg PO Q12H JA Stop: 08/22/18 08:59 Last Admin: 07/23/18 07:35 Dose: 50 mg Documented by: [id number] Miscellaneous (Order Awaiting Action) 1 ea N/A QS JA Stop: 08/22/18 07:59 Last Admin: 07/23/18 07:53 Dose: Not Given Documented by: [id number] Admin: 07/23/18 07:34 Dose: Not Given Documented by: [id number] Pantoprazole Sodium (Protonix) 40 mg PO DAILY JA Stop: 08/22/18 08:59 Last Admin: 07/23/18 07:34 Dose: 40 mg Documented by: [id number] Phenytoin Sodium (Dilantin Er) 100 mg PO BID JA Stop: 08/22/18 08:59 Last Admin: 07/23/18 07:39 Dose: 100 mg Documented by: [id number] Potassium Chloride (Klor-Con M10) 10 meq PO BID JA Stop: 08/22/18 08:59 Last Admin: 07/23/18 07:36 Dose: 10 meq Documented by: [id number] Sodium Chloride (Missy 128 Oph) 1 drops OPB BID JA Stop: 08/22/18 08:59 Last Admin: 07/23/18 07:39 Dose: 1 drops Documented by: [id number] Discontinued Medications Hydrocodone Bitart/Acetaminophen (Mcfarlan 5/325) Confirm Administered Dose 2 tab PO .STK-MED ONE Stop: 07/23/18 07:45 Last Admin: 07/23/18 07:53 Dose: Not Given Documented by: [id number] Albuterol (Duoneb) 6 ml NEB NOW STA Stop: 07/22/18 22:40 Last Admin: 07/22/18 22:50 Dose: 6 ml Documented by: [id number] Sodium Chloride (Nss 1000ml) 1,000 mls @ 999 mls/hr IV .Q1H1M ONE Stop: 07/22/18 23:29 Last Infusion: 07/23/18 00:02 Dose: 0 mls/hr Documented by: [id number] Admin: 07/22/18 22:53 Dose: 999 mls/hr Documented by: [id number] Vancomycin HCl 2,000 mg/ (Sodium Chloride) 540 mls @ 200 mls/hr IV NOW ONE; Protocol Stop: 07/23/18 01:10 Last Infusion: 07/23/18 02:33 Dose: 0 mls/hr Documented by: [id number] Admin: 07/22/18 23:42 Dose: 200 mls/hr Documented by: [id number] Piperacillin Sod/Tazobactam Sod (Zosyn) 4.5 gm in 120 mls @ 240 mls/hr IV NOW ONE Stop: 07/22/18 22:58 Last Infusion: 07/22/18 23:29 Dose: 0 mls/hr Documented by: [id number] Admin: 07/22/18 22:59 Dose: 240 mls/hr Documented by: [id number] Levofloxacin/Dextrose (Levaquin/D5w) 750 mg in 150 mls @ 100 mls/hr IV NOW STA Stop: 07/23/18 00:08 Last Infusion: 07/23/18 01:13 Dose: 0 mls/hr Documented by: [id number] Admin: 07/22/18 23:42 Dose: 100 mls/hr Documented by: [id number] Medical Decision Making Medical Records Attestation: I reviewed the patient's medical records. Home Medications Current Medication List: was personally reviewed by me Laboratory Data Attestation: I reviewed the patient's lab results. Result diagrams: 07/23/18 06:48 07/23/18 06:48 Lab Results 07/22/18 07/22/18 07/22/18 Range/Units 22:26 22:46 22:46 WBC 21.16 H (4.8-10.8) K/uL RBC 3.36 L (4.2-5.4) M/uL Hgb 11.1 L (12.0-16.0) g/dL Hct 31.6 L (37-47) % MCV 94.0 (80-100) fL MCH 33.0 (25-34) pg MCHC 35.1 (32-36) g/dL RDW Std Deviation 44.6 (36.4-46.3) fL RDW Coeff of Enrrique 13.0 (11.5-14.5) % Plt Count 256 (130-400) K/uL MPV 9.6 (7.4-10.4) fL Immature Gran % (Auto) 0.4 % Neut % (Auto) 90.3 % Lymph % (Auto) 2.6 % [place] % (Auto) 6.6 % Eos % (Auto) 0.0 % Baso % (Auto) 0.1 % Immature Gran # (Auto) 0.09 H (0.00-0.02) K/uL Neut # (Auto) 19.09 H (1.4-6.5) K/uL Lymph # (Auto) 0.56 L (1.2-3.4) K/uL [place] # (Auto) 1.39 H (0.11-0.59) K/uL Eos # (Auto) 0.00 (0-0.5) K/uL Baso # (Auto) 0.03 (0-0.2) K/uL Dohle Bodies 1+ PT 12.3 H (9.0-12.0) Seconds INR 1.2 H (0.9-1.1) APTT 34.6 H (21.0-31.0) Seconds PTT Ratio 1.3 VBG pH (7.36-7.41) VBG pCO2 (38-50) mmHg VBG pO2 mmHg VBG HCO3 mmol/L VBG O2 Saturation % VBG Base Excess mEq/L Barometric Pressure mm/Hg Sodium (136-145) mmol/L Potassium (3.5-5.1) mmol/L Chloride (98-107) mmol/L Carbon Dioxide (21-32) mmol/L Anion Gap (3-11) BUN (7-18) mg/dl Creatinine (0.6-1.2) mg/dl Est Cr Clr Drug Dosing ml/min Est GFR ( Amer) Est GFR (Non-Af Amer) BUN/Creatinine Ratio (10-20) Glucose (70-99) mg/dl Lactate (0.4-2.0) mmol/L Calcium (8.5-10.1) mg/dl Total Bilirubin (0.2-1) mg/dl AST (15-37) U/L ALT (12-78) U/L Alkaline Phosphatase (45-117) U/L Total Protein (6.4-8.2) gm/dl Albumin (3.4-5.0) gm/dl Globulin (2.5-4.0) gm/dl Albumin/Globulin Ratio (0.9-2) Procalcitonin (0-0.5) ng/ml Urine Color Dark Yellow Urine Appearance Turbid A (Clear) Urine pH 5.0 (4.5-7.5) Ur Specific [place] 1.022 (1.000-1.030) Urine Protein 2+ H (Negative) Urine Glucose (UA) Negative (Negative) Urine Ketones Trace H (Negative) Urine Blood 2+ H (Negative) Urine Nitrite Positive A (Negative) Urine Bilirubin Negative (Negative) Urine Urobilinogen Negative (Negative) Ur Leukocyte Esterase 3+ H (Negative) Urine WBC (Auto) >30 H (0-5) /hpf Urine RBC (Auto) 0-4 (0-4) /hpf U Hyaline Cast (Auto) 0 (0-5) /lpf U Epithel Cells (Auto) >30 H (0-5) /lpf Urine Bacteria (Auto) 2+ H (Negative) Urine Yeast Not Reportable 07/22/18 07/22/18 07/22/18 Range/Units 22:46 22:46 22:57 WBC (4.8-10.8) K/uL RBC (4.2-5.4) M/uL Hgb (12.0-16.0) g/dL Hct (37-47) % MCV (80-100) fL MCH (25-34) pg MCHC (32-36) g/dL RDW Std Deviation (36.4-46.3) fL RDW Coeff of Enrrique (11.5-14.5) % Plt Count (130-400) K/uL MPV (7.4-10.4) fL Immature Gran % (Auto) % Neut % (Auto) % Lymph % (Auto) % [place] % (Auto) % Eos % (Auto) % Baso % (Auto) % Immature Gran # (Auto) (0.00-0.02) K/uL Neut # (Auto) (1.4-6.5) K/uL Lymph # (Auto) (1.2-3.4) K/uL [place] # (Auto) (0.11-0.59) K/uL Eos # (Auto) (0-0.5) K/uL Baso # (Auto) (0-0.2) K/uL Dohle Bodies PT (9.0-12.0) Seconds INR (0.9-1.1) APTT (21.0-31.0) Seconds PTT Ratio VBG pH (7.36-7.41) VBG pCO2 (38-50) mmHg VBG pO2 mmHg VBG HCO3 mmol/L VBG O2 Saturation % VBG Base Excess mEq/L Barometric Pressure mm/Hg Sodium 136 (136-145) mmol/L Potassium 4.6 (3.5-5.1) mmol/L Chloride 105 (98-107) mmol/L Carbon Dioxide 25 (21-32) mmol/L Anion Gap 6.0 (3-11) BUN 31 H (7-18) mg/dl Creatinine 1.35 H (0.6-1.2) mg/dl Est Cr Clr Drug Dosing 32.0 ml/min Est GFR ( Amer) 42.6 Est GFR (Non-Af Amer) 36.7 BUN/Creatinine Ratio 23.0 H (10-20) Glucose 151 H (70-99) mg/dl Lactate 1.0 (0.4-2.0) mmol/L Calcium 8.7 (8.5-10.1) mg/dl Total Bilirubin 0.5 (0.2-1) mg/dl AST 24 (15-37) U/L ALT < 6 L (12-78) U/L Alkaline Phosphatase 109 (45-117) U/L Total Protein 6.8 (6.4-8.2) gm/dl Albumin 2.4 L (3.4-5.0) gm/dl Globulin 4.4 H (2.5-4.0) gm/dl Albumin/Globulin Ratio 0.5 L (0.9-2) Procalcitonin 0.34 (0-0.5) ng/ml Urine Color Urine Appearance (Clear) Urine pH (4.5-7.5) Ur Specific [place] (1.000-1.030) Urine Protein (Negative) Urine Glucose (UA) (Negative) Urine Ketones (Negative) Urine Blood (Negative) Urine Nitrite (Negative) Urine Bilirubin (Negative) Urine Urobilinogen (Negative) Ur Leukocyte Esterase (Negative) Urine WBC (Auto) (0-5) /hpf Urine RBC (Auto) (0-4) /hpf U Hyaline Cast (Auto) (0-5) /lpf U Epithel Cells (Auto) (0-5) /lpf Urine Bacteria (Auto) (Negative) Urine Yeast 07/22/18 Range/Units 22:57 WBC (4.8-10.8) K/uL RBC (4.2-5.4) M/uL Hgb (12.0-16.0) g/dL Hct (37-47) % MCV (80-100) fL MCH (25-34) pg MCHC (32-36) g/dL RDW Std Deviation (36.4-46.3) fL RDW Coeff of Enrrique (11.5-14.5) % Plt Count (130-400) K/uL MPV (7.4-10.4) fL Immature Gran % (Auto) % Neut % (Auto) % Lymph % (Auto) % [place] % (Auto) % Eos % (Auto) % Baso % (Auto) % Immature Gran # (Auto) (0.00-0.02) K/uL Neut # (Auto) (1.4-6.5) K/uL Lymph # (Auto) (1.2-3.4) K/uL [place] # (Auto) (0.11-0.59) K/uL Eos # (Auto) (0-0.5) K/uL Baso # (Auto) (0-0.2) K/uL Dohle Bodies PT (9.0-12.0) Seconds INR (0.9-1.1) APTT (21.0-31.0) Seconds PTT Ratio VBG pH 7.46 H (7.36-7.41) VBG pCO2 32 L (38-50) mmHg VBG pO2 61 mmHg VBG HCO3 22 mmol/L VBG O2 Saturation 90.7 % VBG Base Excess -1.1 mEq/L Barometric Pressure 732.0 mm/Hg Sodium (136-145) mmol/L Potassium (3.5-5.1) mmol/L Chloride (98-107) mmol/L Carbon Dioxide (21-32) mmol/L Anion Gap (3-11) BUN (7-18) mg/dl Creatinine (0.6-1.2) mg/dl Est Cr Clr Drug Dosing ml/min Est GFR ( Amer) Est GFR (Non-Af Amer) BUN/Creatinine Ratio (10-20) Glucose (70-99) mg/dl Lactate (0.4-2.0) mmol/L Calcium (8.5-10.1) mg/dl Total Bilirubin (0.2-1) mg/dl AST (15-37) U/L ALT (12-78) U/L Alkaline Phosphatase (45-117) U/L Total Protein (6.4-8.2) gm/dl Albumin (3.4-5.0) gm/dl Globulin (2.5-4.0) gm/dl Albumin/Globulin Ratio (0.9-2) Procalcitonin (0-0.5) ng/ml Urine Color Urine Appearance (Clear) Urine pH (4.5-7.5) Ur Specific [place] (1.000-1.030) Urine Protein (Negative) Urine Glucose (UA) (Negative) Urine Ketones (Negative) Urine Blood (Negative) Urine Nitrite (Negative) Urine Bilirubin (Negative) Urine Urobilinogen (Negative) Ur Leukocyte Esterase (Negative) Urine WBC (Auto) (0-5) /hpf Urine RBC (Auto) (0-4) /hpf U Hyaline Cast (Auto) (0-5) /lpf U Epithel Cells (Auto) (0-5) /lpf Urine Bacteria (Auto) (Negative) Urine Yeast Blood Pressure Blood Pressure Findings: Normal blood pressure MDM Narrative The patient is a 83 year old white female w/ PMHx of Parkinson's disease, diabetes, HTN, and GERD who presents to the ED w/ CC of a persistent fever begi nning recently. Differential diagnosis: Etiologies such as viral syndrome, otitis, pharyngitis, pneumonia, influenza, meningitis, urinary tract infection, sepsis, bacteremia, as well as others were entertained. Patient was seen and evaluated the bedside. The patient was initially little hypoxic with associated lower blood pressure. Patient reportedly had a fever and is a nursing and patient. Patient was able to answer questions and appears relatively alert and is able to follow commands. Patient does have coarse breath sounds throughout. Patient was initially empirically given broad-spe ctrum antibiotic's and IV fluids. The patient's blood pressure did respond to IV fluids. Lactate is not elevated. White count is over 22,000. By my read patient's chest x-ray shows concern for right lower lobe pneumonia given the patient's concerning findings and associated sepsis with healthcare associated pneumonia patient was treated and subsequently admitted to the medicine service on 2 L nasal cannula. Impression & Plan Sepsis, Pneumonia, UTI (urinary tract infection) Critical Care Time I have personally spent 55 minutes of critical care time in the direct management of this patient. This includes bedside care, interpretation of diagnostic studies, and testing, discussion with consultants, patient, and family members, and other required patient management activities. This 55 minutes is in excess of all separately billable procedures. Critical Care Time: Yes Total Critical Care Time: 55 Discharge Plan Visit Data *Final* Discharge Date/Time: 07/23/18 03:51 Chief Complaint: Fever Stated Complaint: FEVER ED Provider: Kimani Ackerman Discharge Problem: Sepsis, Pneumonia, UTI (urinary tract infection) Patient Disposition: Admitted As Inpatient Discharge Instructions Interventions: ED Discharge Assessment Last Done: 07/23/18 03:51 Discharge Problem: Sepsis Qualifiers: Sepsis type: sepsis due to unspecified organism Qualified Code(s): A41.9 - Sepsis, unspecified organism Pneumonia Qualifiers: Pneumonia type: due to unspecified organism UTI (urinary tract infection) Qualifiers: Urinary tract infection type: site unspecified Hematuria presence: with hematuria Qualified Code(s): N39.0 - Urinary tract infection, site not specified The scribe's documentation has been prepared under my direction and personally reviewed by me in its entirety. I confirm that the note above accurately reflects all work, treatment, procedures, and medical decision making performed by me.
[2018-07-23] MEDS: INSULIN DETEMIR FLEXPEN/FLEX TOUCH 100 UNITS/ML 3ML SQ SCH (21:03)
[2018-07-23] MEDS: MIRTAZAPINE TAB 15 MG TAB PO SCH (21:05)
[2018-07-23] MEDS ORDERED: VANCOMYCIN HCL 1,000 MG in SODIUM CHLORIDE 0.9% 250 ML IV SCH (22:00)
[2018-07-24] MEDS: ALBUTEROL 0.083% NEBU SOLN 3 ML VIAL NEB SCH ×6 (03:07→23:22)
[2018-07-24] MEDS: PIPERACILLIN/TAZOBACTAM 3.375 GM in DEXTROSE 5% 100 ML IV SCH ×3 (04:22→20:33)
--- NOTE | 2018-07-24 04:42 | Progress Note ---
Date of Service July 24, 2018 Assessment & Plan (1) SOB (shortness of breath): Increased O2 demand and crackles Plan - Stop fluids, CXR - Iv Lasix 20 mg - Hold am PO dose until evaluated by day team - Strict I/O's Results & Data Vital Signs (Past 12 Hours) Vital Signs Temp Pulse Pulse Resp BP Pulse Ox 07/24/18 03:25 36.5 C 78 20 159/71 H 92 07/24/18 03:10 76 18 84 L 07/23/18 23:30 104 H 07/23/18 23:21 36.9 C 93 H 16 159/65 H 97 07/23/18 23:11 94 H 18 90 07/23/18 19:40 37.3 C 114 H 18 176/80 H 92 07/23/18 19:01 89 17 91
[2018-07-24] MEDS ORDERED: FUROSEMIDE 20 MG in SYRINGE 0 ML IV ONE ×2 (04:45→05:30)
[2018-07-24 06:25] LABS: Base Excess VBG -2.7 mEq/L; Oxygen Saturation VBG 73.2 %; pH VBG 7.37 (7.36-7.41)
--- NOTE | 2018-07-24 06:30 | XRay Report ---
XR chest 1V portable CLINICAL HISTORY: sob dyspnea COMPARISON STUDY: 07/22/2018 FINDINGS: Unchanged right basilar infiltrate. Increased prominence of pulmonary vasculature. Diaphrag ms are smooth. Costophrenic angles sharp. IMPRESSION: 1. Unchanging right basilar infiltrate. 2. Developing components of congestive heart failure The above report was generated using voice recognition software. It may contain grammatical, syntax or spelling errors. Electronically signed by: Apolinar Hawley M.D. 07/24/2018 6:28 AM
[2018-07-24 06:46] LABS: Creatinine Clr Calc Pharmacy 35.2 ml/min; Est GFR (African American) 47.6; Est GFR (Non-African American) 41.1
[2018-07-24] MEDS: FOLIC ACID 400 MCG TAB PO SCH (09:31)
[2018-07-24] MEDS: PANTOprazole 40 MG TAB PO SCH (09:32)
[2018-07-24] MEDS: CLOPIDOGREL BISULFATE 75 MG TAB PO SCH (09:32)
[2018-07-24] MEDS: PHENYTOIN SODIUM ER 100 MG CAP PO SCH ×2 (09:32→20:35)
[2018-07-24] MEDS: CARBIDOPA/LEVODOPA 25/100MG TAB PO SCH ×4 (09:32→20:35)
[2018-07-24] MEDS: DOCUSATE SODIUM 100 MG CAP PO SCH ×2 (09:32→20:46)
[2018-07-24] MEDS: LOSARTAN POTASSIUM 50 MG TAB PO SCH (09:32)
[2018-07-24] MEDS: METOPROLOL TARTRATE 50 MG TAB PO SCH ×2 (09:32→20:34)
[2018-07-24] MEDS: FUROSEMIDE 20 MG TAB PO SCH (09:33)
[2018-07-24] MEDS: POTASSIUM CHLORIDE 10 MEQ TABCR PO SCH ×2 (09:33→20:35)
[2018-07-24] MEDS: levETIRAcetam 500 MG TAB PO SCH ×2 (09:33→20:36)
[2018-07-24] MEDS: LOSARTAN POTASSIUM 25 MG TAB PO SCH (09:34)
[2018-07-24] MEDS: SODIUM CHLORIDE 5% OP SOLN 15 ML BTL OPB SCH ×2 (09:34→20:36)
[2018-07-24] MEDS: HEPARIN SOD 5,000 UNIT/0.5 ML VIAL SQ SCH ×2 (09:34→20:34)
[2018-07-24] MEDS: HYDROCODONE/ACETAMOPHEN 5/325MG TAB PO SCH ×2 (09:41→20:33)
[2018-07-24] MEDS: LACTOBACILLUS ACIDOPHILUS (FLORANEX) TAB PO SCH ×2 (13:03→16:04)
[2018-07-24] MEDS: MIRTAZAPINE TAB 15 MG TAB PO SCH (20:35)
[2018-07-24] MEDS: INSULIN DETEMIR FLEXPEN/FLEX TOUCH 100 UNITS/ML 3ML SQ SCH (20:36)
--- NOTE | 2018-07-24 20:46 | Hospitalist Progress Note ---
Date of Service July 24, 2018 Assessment & Plan (1) Sepsis: IMPROVING albeit slowly. 2nd to ESBL e.coli UTI and right-sided pneumonia. Pneumonia could be aspiration vs gram negative etiology; at risk of both. MRSA swab negative; vanco d/c. Continue zosyn. Zosyn not optimal for e.coli but should concentrate enough in urine to be adequate. Recheck CBC am. Present on Admission?: Yes (2) Pneumonia: aspiration vs gram negative etiology. repeat cxr in am tomorrow. cont zosyn, NC O2, supportive care. speech for swallow eval in light of Parkinson's. Present on Admission?: Yes (3) UTI (urinary tract infection): 2nd ESBL e.coli see above Present on Admission?: Yes (4) Parkinson disease: cont home medications nonambulatory by history but will obtain PT/OT to maintain conditioning (5) Seizures: continue keppra stable, no issues (6) Metabolic encephalopathy: 2nd to sepsis - uncertain of pt's typical baseline prior hospitalizations were complicated by delirium based on records (7) Diabetes mellitus: cont basal-bolus regimen (8) GERD (gastroesophageal reflux disease): cont PPI (9) HTN (hypertension): cont home meds (10) History of stroke: cont plavix for secondary prevention (11) Chronic kidney disease, stage 3a: Creatinine stable BMP am for stability (12) DVT prophylaxis: heparin 5000 BID Subjective patient mildly confused during the visit but knew she was in the hospital. she mentions she does not walk outside the hospital; uses wheelchair. mild cough but denies dyspnea. denies back pain, flank pain, abd pain. eating fair. Review of Systems Review of Systems: Unobtainable due to cognitive status Physical Exam Constitutional: well developed, well nourished and + ill appearing; no acute distress ENMT: external ear and nose normal, oropharynx normal Respiratory: Auscultation: + diminished lung sounds (right base); no rales and no wheezes Cardiovascular: RRR, no murmur, no edema Heart Sounds: normal S1 and normal S2 Vessels: posterior tibial pulses present and dorsalis pedis pulses present; no JVD Gastrointestinal (Abdomen): normal bowel sounds, soft, nontender, no hepatosplenomegaly no flank tenderness to palpation Psychiatric: Orientation: alert; + not oriented x 3 Results & Data Vital Signs (Past 12 Hours) Vital Signs Temp Pulse Pulse Resp BP Pulse Ox 07/24/18 19:34 36.6 C 85 20 156/76 H 96 07/24/18 19:11 82 18 91 07/24/18 19:00 36.8 C 82 18 144/63 H 91 07/24/18 16:00 69 07/24/18 15:43 36.4 C L 85 18 152/81 H 99 07/24/18 15:12 77 16 92 07/24/18 11:13 86 20 93 07/24/18 11:04 37.1 C 77 20 144/72 H 94 Laboratory Results urine cx- esbl e. coli blood cx's neg Cr 1.2 (1) Sepsis Sepsis type: sepsis due to unspecified organism Qualified Code(s): A41.9 - Sepsis, unspecified organism (2) Pneumonia Pneumonia type: due to unspecified organism Laterality: right Lung location: unspecified part of lung Qualified Code(s): J18.9 - Pneumonia, unspecified organism (3) UTI (urinary tract infection) Hematuria presence: with hematuria Urinary tract infection type: site unspecified Qualified Code(s): N39.0 - Urinary tract infection, site not specified; R31.9 - Hematuria, unspecified (4) Diabetes mellitus Diabetes mellitus type: type 2 Diabetes mellitus correction insulin use: with correction use Diabetes mellitus complication status: without complication Qualified Code(s): E11.9 - Type 2 diabetes mellitus without complications; Z79.4 - rat exterminator (current) use of insulin (5) GERD (gastroesophageal reflux disease) Esophagitis presence: esophagitis presence not specified Qualified Code(s): K21.9 - Gastro-esophageal reflux disease without esophagitis (6) HTN (hypertension) Hypertension type: essential hypertension Qualified Code(s): I10 - Essential (primary) hypertension
[2018-07-25] MEDS: ALBUTEROL 0.083% NEBU SOLN 3 ML VIAL NEB SCH ×6 (03:10→23:00)
[2018-07-25] MEDS: PIPERACILLIN/TAZOBACTAM 3.375 GM in DEXTROSE 5% 100 ML IV SCH ×3 (05:15→20:03)
[2018-07-25 06:52] LABS: Basophils # (auto) 0.02 K/uL (0-0.2); Basophils % (auto) 0.2 %; Eosinophils # (auto) 0.23 K/uL (0-0.5); Eosinophils % (auto) 2.9 %; Hematocrit (blood only) 28.5 % (37-47); Hemoglobin 9.7 g/dL (12.0-16.0); Immature Granulocytes # (auto) 0.13 K/uL (0.00-0.02); Immature Granulocytes % (auto) 1.6 %; Lymphocytes # (auto) 1.22 K/uL (1.2-3.4); Lymphocytes % (auto) 15.2 %; Mean Corpuscular Volume 93.8 fL (80-100); Mean Platelet Volume 9.3 fL (7.4-10.4); Monocytes # (auto) 0.78 K/uL (0.11-0.59); Monocytes % (auto) 9.7 %; Neutrophils # (auto) 5.66 K/uL (1.4-6.5); Neutrophils % (auto) 70.4 %; Platelet Count 269 K/uL (130-400); RDW Coefficient of Variation 13.4 % (11.5-14.5); Red Blood Count 3.04 M/uL (4.2-5.4); White Blood Count 8.04 K/uL (4.8-10.8)
[2018-07-25 07:21] LABS: BUN Creatinine Ratio 21.2 (10-20); Calcium 8.3 mg/dl (8.5-10.1); Creatinine Clr Calc Pharmacy 34.7 ml/min; Est GFR (African American) 47.6; Est GFR (Non-African American) 41.1; Magnesium 2.1 mg/dl (1.8-2.4); Potassium 3.7 mmol/L (3.5-5.1)
[2018-07-25] MEDS: METOPROLOL TARTRATE 50 MG TAB PO SCH ×2 (07:59→20:06)
[2018-07-25] MEDS: CARBIDOPA/LEVODOPA 25/100MG TAB PO SCH ×4 (08:00→20:07)
[2018-07-25] MEDS: LOSARTAN POTASSIUM 25 MG TAB PO SCH (08:00)
[2018-07-25] MEDS: POTASSIUM CHLORIDE 10 MEQ TABCR PO SCH ×2 (08:00→20:05)
[2018-07-25] MEDS: PHENYTOIN SODIUM ER 100 MG CAP PO SCH ×2 (08:00→20:04)
[2018-07-25] MEDS: FUROSEMIDE 20 MG TAB PO SCH (08:00)
[2018-07-25] MEDS: levETIRAcetam 500 MG TAB PO SCH ×2 (08:00→20:05)
[2018-07-25] MEDS: FOLIC ACID 400 MCG TAB PO SCH (08:00)
[2018-07-25] MEDS: CLOPIDOGREL BISULFATE 75 MG TAB PO SCH (08:01)
[2018-07-25] MEDS: LOSARTAN POTASSIUM 50 MG TAB PO SCH (08:01)
[2018-07-25] MEDS: PANTOprazole 40 MG TAB PO SCH (08:01)
[2018-07-25] MEDS: LACTOBACILLUS ACIDOPHILUS (FLORANEX) TAB PO SCH ×3 (08:01→16:35)
[2018-07-25] MEDS: SODIUM CHLORIDE 5% OP SOLN 15 ML BTL OPB SCH ×2 (08:05→20:07)
[2018-07-25] MEDS: HYDROCODONE/ACETAMOPHEN 5/325MG TAB PO SCH ×2 (08:09→20:03)
[2018-07-25] MEDS: HEPARIN SOD 5,000 UNIT/0.5 ML VIAL SQ SCH ×2 (08:14→20:04)
--- NOTE | 2018-07-25 10:17 | XRay Report ---
XR chest 1V portable CLINICAL HISTORY: right-sided pneumonia, interval change COMPARISON STUDY: 07/24/2018 FINDINGS: Findings slightly progressive right midlung infiltrative change. Components of congestive f ailure persist. Slight increased density left base. IMPRESSION: 1. Subtly progressive right midlung infiltrate. 2. Potential small developing left basilar infiltrate. 3. Underlying components of congestive failure similar The above report was generated using voice recognition software. It may contain grammatical, syntax or spelling errors. Electronically signed by: Apolinar Hawley M.D. 07/25/2018 10:15 AM
[2018-07-25] MEDS ORDERED: FUROSEMIDE 20 MG in SYRINGE 0 ML IV ONE ×2 (10:45→18:15)
[2018-07-25] MEDS: DOCUSATE SODIUM 100 MG CAP PO SCH ×2 (13:53→20:03)
[2018-07-25] MEDS: INSULIN DETEMIR FLEXPEN/FLEX TOUCH 100 UNITS/ML 3ML SQ SCH (20:05)
[2018-07-25] MEDS: MIRTAZAPINE TAB 15 MG TAB PO SCH (20:07)
[2018-07-25] MEDS: MAGNESIUM OXIDE 400 MG TAB PO SCH (20:07)
[2018-07-25] MEDS ORDERED: VANCOMYCIN TROUGH ONE (21:30)
--- NOTE | 2018-07-25 22:13 | Hospitalist Progress Note ---
Date of Service July 25, 2018 Assessment & Plan (1) Sepsis: Resolved. Leukocytosis resolved today. Mental status improved. 2nd to ESBL e.coli UTI and right-sided pneumonia. Pneumonia could be aspiration vs gram negative etiology; at risk of both. MRSA swab negative; vanco d/c. Continue zosyn. Zosyn not optimal for e.coli but should concentrate enough in urine to be adequate. (2) Pneumonia: aspiration vs gram negative etiology. likely latter. speech saw; no dysphagia. cont zosyn, NC O2, supportive care. (3) UTI (urinary tract infection): 2nd ESBL e.coli see above improved clinically with improved mental status and leukocytosis. day #3 of Rx; plan 7 days in total (4) Parkinson disease: cont home medications nonambulatory by history but will obtain PT/OT to maintain conditioning (5) Seizures: continue keppra stable, no issues (6) Metabolic encephalopathy: 2nd to sepsis - resolved (7) Diabetes mellitus: cont basal-bolus regimen controlled (8) GERD (gastroesophageal reflux disease): cont PPI (9) HTN (hypertension): cont home meds (10) History of stroke: cont plavix for secondary prevention (11) Chronic kidney disease, stage 3a: Creatinine stable BMP am for stability (12) DVT prophylaxis: heparin 5000 BID daughter updated if stable on tele overnight -- move to med/surg tomorrow Subjective patient's daughter was at bedside. she is pleased with her mom's progress. mental status markedly improved. near baseline today. she confirms her mother ONLY transfers -- does not walk at intermediate. pt with cough but no dyspnea. daughter confirms mother has incontinence of urine at baseline. speech saw -- no dysphagia. Review of Systems Constitutional: no fever, no chills and no anorexia Respiratory: + cough; no sputum production Cardiovascular: no chest pain Gastrointestinal: no abdominal pain Physical Exam Constitutional: well developed, well nourished and + ill appearing; no acute distress ENMT: external ear and nose normal, oropharynx normal Respiratory: Auscultation: + rales (minimal bases); no wheezes Cardiovascular: RRR, no murmur, no edema Heart Sounds: normal S1 and normal S2 Vessels: posterior tibial pulses present and dorsalis pedis pulses present; no JVD Gastrointestinal (Abdomen): normal bowel sounds, soft, nontender, no hepatosplenomegaly Psychiatric: Orientation: alert and oriented x 3 looks much better today Results & Data Vital Signs (Past 12 Hours) Vital Signs Temp Pulse Pulse Resp BP Pulse Ox 07/25/18 19:56 36.4 C L 92 H 20 148/73 H 96 07/25/18 19:33 74 18 96 07/25/18 16:00 36.5 C 63 78 20 149/73 H 96 07/25/18 15:29 62 18 99 07/25/18 10:56 78 19 98 Laboratory Results Laboratory Results - last 24 hr 07/25/18 07/25/18 07/25/18 06:18 06:18 20:19 WBC 8.04 RBC 3.04 L Hgb 9.7 L Hct 28.5 L MCV 93.8 MCH 31.9 MCHC 34.0 RDW Std Deviation 46.0 RDW Coeff of Enrrique 13.4 Plt Count 269 MPV 9.3 Immature Gran % (Auto) 1.6 Neut % (Auto) 70.4 Lymph % (Auto) 15.2 Knox % (Auto) 9.7 Eos % (Auto) 2.9 Baso % (Auto) 0.2 Immature Gran # (Auto) 0.13 H Neut # (Auto) 5.66 Lymph # (Auto) 1.22 Knox # (Auto) 0.78 H Eos # (Auto) 0.23 Baso # (Auto) 0.02 Sodium 140 Potassium 3.7 Chloride 109 H Carbon Dioxide 25 Anion Gap 6.0 BUN 26 H Creatinine 1.23 H Est Cr Clr Drug Dosing 34.7 Est GFR ( Amer) 47.6 Est GFR (Non-Af Amer) 41.1 BUN/Creatinine Ratio 21.2 H Glucose 148 H POC Glucose 114 H Calcium 8.3 L Magnesium 2.1 (1) UTI (urinary tract infection) Hematuria presence: with hematuria Urinary tract infection type: site unspecified Qualified Code(s): N39.0 - Urinary tract infection, site not specified; R31.9 - Hematuria, unspecified (2) Diabetes mellitus Diabetes mellitus complication status: without complication Diabetes mellitus exterminator termite insulin use: with fpc use Diabetes mellitus type: type 2 Qualified Code(s): E11.9 - Type 2 diabetes mellitus without complications; Z79.4 - oysterman (current) use of insulin (3) Sepsis Sepsis type: sepsis due to unspecified organism Qualified Code(s): A41.9 - Sepsis, unspecified organism (4) GERD (gastroesophageal reflux disease) Esophagitis presence: esophagitis presence not specified Qualified Code(s): K21.9 - Gastro-esophageal reflux disease without esophagitis (5) HTN (hypertension) Hypertension type: essential hypertension Qualified Code(s): I10 - Essential (primary) hypertension (6) Pneumonia Laterality: right Lung location: unspecified part of lung Pneumonia type: due to unspecified organism Qualified Code(s): J18.9 - Pneumonia, unspecified organism
[2018-07-26] MEDS: ALBUTEROL 0.083% NEBU SOLN 3 ML VIAL NEB SCH ×2 (04:13→07:05)
[2018-07-26] MEDS: PIPERACILLIN/TAZOBACTAM 3.375 GM in DEXTROSE 5% 100 ML IV SCH ×3 (04:38→21:23)
[2018-07-26 07:02] LABS: BUN Creatinine Ratio 19.5 (10-20); Calcium 8.9 mg/dl (8.5-10.1); Creatinine Clr Calc Pharmacy 31.3 ml/min; Est GFR (African American) 41.5; Est GFR (Non-African American) 35.8; Potassium 4.1 mmol/L (3.5-5.1)
[2018-07-26] MEDS: CARBIDOPA/LEVODOPA 25/100MG TAB PO SCH ×4 (08:28→20:10)
[2018-07-26] MEDS: LOSARTAN POTASSIUM 25 MG TAB PO SCH (08:29)
[2018-07-26] MEDS: FOLIC ACID 400 MCG TAB PO SCH (08:29)
[2018-07-26] MEDS: PHENYTOIN SODIUM ER 100 MG CAP PO SCH ×2 (08:30→20:11)
[2018-07-26] MEDS: MAGNESIUM OXIDE 400 MG TAB PO SCH ×2 (08:30→20:11)
[2018-07-26] MEDS: CLOPIDOGREL BISULFATE 75 MG TAB PO SCH (08:31)
[2018-07-26] MEDS: levETIRAcetam 500 MG TAB PO SCH ×2 (08:31→20:09)
[2018-07-26] MEDS: LACTOBACILLUS ACIDOPHILUS (FLORANEX) TAB PO SCH ×3 (08:31→17:11)
[2018-07-26] MEDS: PANTOprazole 40 MG TAB PO SCH (08:32)
[2018-07-26] MEDS: LOSARTAN POTASSIUM 50 MG TAB PO SCH (08:33)
[2018-07-26] MEDS: HEPARIN SOD 5,000 UNIT/0.5 ML VIAL SQ SCH ×2 (08:33→20:08)
[2018-07-26] MEDS: SODIUM CHLORIDE 5% OP SOLN 15 ML BTL OPB SCH ×2 (08:33→20:12)
[2018-07-26] MEDS: METOPROLOL TARTRATE 50 MG TAB PO SCH ×2 (08:34→20:09)
[2018-07-26] MEDS: HYDROCODONE/ACETAMOPHEN 5/325MG TAB PO SCH ×2 (08:47→21:24)
[2018-07-26] MEDS ORDERED: ALBUTEROL 0.083% NEBU SOLN 3 ML VIAL NEB PRN (10:30)
[2018-07-26] MEDS: DOCUSATE SODIUM 100 MG CAP PO SCH ×2 (10:46→20:12)
[2018-07-26] MEDS: POTASSIUM CHLORIDE 10 MEQ TABCR PO SCH ×2 (10:57→20:08)
[2018-07-26] MEDS: MIRTAZAPINE TAB 15 MG TAB PO SCH (20:11)
[2018-07-26] MEDS: INSULIN DETEMIR FLEXPEN/FLEX TOUCH 100 UNITS/ML 3ML SQ SCH (20:16)
--- NOTE | 2018-07-26 21:07 | Hospitalist Progress Note ---
Date of Service July 26, 2018 Assessment & Plan (1) Sepsis: Resolved. 2nd to ESBL e.coli UTI and right-sided pneumonia. Pneumonia could be aspiration vs gram negative etiology; at risk of both. Continue zosyn. Zosyn not optimal for e.coli UTI but should concentrate enough in urine to be adequate (and clinically she has improved). (2) Pneumonia: IMPROVED. aspiration vs gram negative etiology. likely latter. speech saw; no dysphagia. cont zosyn and supportive care. day #4/7 of zosyn. (3) UTI (urinary tract infection): 2nd ESBL e.coli see above improved clinically with improved mental status and resolved leukocytosis. day #4 of Rx; plan 7 days in total (4) Parkinson disease: cont home medications nonambulatory by history cont PT/OT (5) Seizures: continue keppra continue phenytoin stable, no issues (6) Metabolic encephalopathy: 2nd to sepsis - resolved seems to be at or near baseline (7) Diabetes mellitus: cont basal-bolus regimen controlled last a1c 6.2% (8) GERD (gastroesophageal reflux disease): cont PPI (9) HTN (hypertension): cont home meds (10) History of stroke: cont plavix for secondary prevention (11) Chronic kidney disease, stage 3a: Creatinine stable BMP am for stability (12) DVT prophylaxis: heparin 5000 BID can d/c telemetry today; move to med/surg Subjective tele stable overnight. patient awake/alert during the visit. denied any specific complaints. eating decently per staff. mild confusion at times. Review of Systems Constitutional: no fever, no chills, no body aches, no fatigue and no anorexia Respiratory: + cough; no dyspnea and no sputum production Cardiovascular: no chest pain Gastrointestinal: no abdominal pain Physical Exam Constitutional: well developed and well nourished; no acute distress ENMT: external ear and nose normal, oropharynx normal Respiratory: Auscultation: + rales (minimal bases) and + wheezes (minimal ) Cardiovascular: RRR, no murmur, no edema Heart Sounds: normal S1 and normal S2 Vessels: posterior tibial pulses present and dorsalis pedis pulses present; no JVD Gastrointestinal (Abdomen): normal bowel sounds, soft, nontender, no hepatosplenomegaly Neurologic: tremors Psychiatric: Orientation: alert Results & Data Vital Signs (Past 12 Hours) Vital Signs Temp Pulse Resp BP Pulse Ox 05/22/19 20:50 36.8 C 76 20 93 07/26/18 20:48 198/84 H 07/26/18 15:12 36.5 C 70 16 161/77 H 91 07/26/18 11:29 36.4 C L 63 20 148/77 H 93 Laboratory Results Laboratory Results - last 24 hr 07/26/18 07/26/18 07/26/18 06:02 07:21 11:48 Sodium 140 Potassium 4.1 Chloride 105 Carbon Dioxide 28 Anion Gap 7.0 BUN 27 H Creatinine 1.38 H Est Cr Clr Drug Dosing 31.3 Est GFR ( Amer) 41.5 Est GFR (Non-Af Amer) 35.8 BUN/Creatinine Ratio 19.5 Glucose 156 H POC Glucose 146 H 210 H Calcium 8.9 07/26/18 07/26/18 15:43 20:11 Sodium Potassium Chloride Carbon Dioxide Anion Gap BUN Creatinine Est Cr Clr Drug Dosing Est GFR ( Amer) Est GFR (Non-Af Amer) BUN/Creatinine Ratio Glucose POC Glucose 151 H 146 H Calcium (1) UTI (urinary tract infection) Hematuria presence: with hematuria Urinary tract infection type: site unspecified Qualified Code(s): N39.0 - Urinary tract infection, site not specified; R31.9 - Hematuria, unspecified (2) Diabetes mellitus Diabetes mellitus complication status: without complication Diabetes mellitus residential insulin use: with residential use Diabetes mellitus type: type 2 Qualified Code(s): E11.9 - Type 2 diabetes mellitus without complications; Z79.4 - terminal operations supervisor (current) use of insulin (3) Sepsis Sepsis type: sepsis due to unspecified organism Qualified Code(s): A41.9 - Sepsis, unspecified organism (4) GERD (gastroesophageal reflux disease) Esophagitis presence: esophagitis presence not specified Qualified Code(s): K21.9 - Gastro-esophageal reflux disease without esophagitis (5) HTN (hypertension) Hypertension type: essential hypertension Qualified Code(s): I10 - Essential (primary) hypertension (6) Pneumonia Laterality: right Lung location: unspecified part of lung Pneumonia type: due to unspecified organism Qualified Code(s): J18.9 - Pneumonia, unspecified organism
[2018-07-27] MEDS: PIPERACILLIN/TAZOBACTAM 3.375 GM in DEXTROSE 5% 100 ML IV SCH ×3 (04:13→20:28)
[2018-07-27 05:47] LABS: Hematocrit (blood only) 33.9 % (37-47); Hemoglobin 11.6 g/dL (12.0-16.0); Mean Corpuscular Hgb Conc 34.2 g/dL (32-36); Mean Corpuscular Volume 92.9 fL (80-100); Platelet Count 361 K/uL (130-400); RDW Coefficient of Variation 13.2 % (11.5-14.5); RDW Standard Deviation 44.9 fL (36.4-46.3); Red Blood Count 3.65 M/uL (4.2-5.4)
[2018-07-27 06:34] LABS: BUN Creatinine Ratio 21.4 (10-20); Creatinine Clr Calc Pharmacy 43.1 ml/min; Est GFR (African American) 61.2; Est GFR (Non-African American) 52.8; Potassium 4.2 mmol/L (3.5-5.1)
[2018-07-27] MEDS: SODIUM CHLORIDE 5% OP SOLN 15 ML BTL OPB SCH ×2 (07:20→20:28)
[2018-07-27] MEDS: PANTOprazole 40 MG TAB PO SCH (07:21)
[2018-07-27] MEDS: CARBIDOPA/LEVODOPA 25/100MG TAB PO SCH ×4 (07:21→20:26)
[2018-07-27] MEDS: HYDROCODONE/ACETAMOPHEN 5/325MG TAB PO SCH ×2 (07:21→20:25)
[2018-07-27] MEDS: DOCUSATE SODIUM 100 MG CAP PO SCH ×2 (07:21→21:10)
[2018-07-27] MEDS: CLOPIDOGREL BISULFATE 75 MG TAB PO SCH (07:22)
[2018-07-27] MEDS: LOSARTAN POTASSIUM 25 MG TAB PO SCH (07:22)
[2018-07-27] MEDS: FOLIC ACID 400 MCG TAB PO SCH (07:22)
[2018-07-27] MEDS: levETIRAcetam 500 MG TAB PO SCH ×2 (07:22→20:25)
[2018-07-27] MEDS: FUROSEMIDE 20 MG TAB PO SCH (07:22)
[2018-07-27] MEDS: POTASSIUM CHLORIDE 10 MEQ TABCR PO SCH ×2 (07:22→20:26)
[2018-07-27] MEDS: METOPROLOL TARTRATE 50 MG TAB PO SCH ×2 (07:22→20:27)
[2018-07-27] MEDS: MAGNESIUM OXIDE 400 MG TAB PO SCH ×2 (07:22→20:27)
[2018-07-27] MEDS: PHENYTOIN SODIUM ER 100 MG CAP PO SCH ×2 (07:22→20:27)
[2018-07-27] MEDS: LACTOBACILLUS ACIDOPHILUS (FLORANEX) TAB PO SCH ×3 (07:23→17:53)
[2018-07-27] MEDS: LOSARTAN POTASSIUM 50 MG TAB PO SCH (07:23)
[2018-07-27] MEDS: HEPARIN SOD 5,000 UNIT/0.5 ML VIAL SQ SCH ×2 (07:24→21:00)
[2018-07-27] MEDS ORDERED: FUROSEMIDE 20 MG TAB PO ONE (16:00)
[2018-07-27] MEDS ORDERED: AMLODIPINE BESYLATE 5 MG TAB PO ONE (17:58)
--- NOTE | 2018-07-27 18:06 | Hospitalist Progress Note ---
Date of Service July 27, 2018 Assessment & Plan (1) Sepsis: Resolved. 2nd to ESBL e.coli UTI and right-sided pneumonia. Continue zosyn. (2) Pneumonia: IMPROVED. aspiration vs gram negative etiology. likely latter. speech saw; no dysphagia. cont zosyn and supportive care. day #5/7 of zosyn. (3) UTI (urinary tract infection): 2nd ESBL e.coli see above improved clinically with improved mental status and resolved leukocytosis. Zosyn not optimal for e.coli UTI but should concentrate enough in urine to be adequate (and clinically she has improved). day #5 of Rx; plan 7 days in total remove garcai would suggest repeat u/a and urine cx to ensure test of cure (4) Acute diastolic CHF (congestive heart failure): Improved. Received lasix this am. Will give another dose this afternoon. Stable BUN and Cr. (5) Parkinson disease: cont home medications nonambulatory cont PT/OT (6) Seizures: continue keppra continue phenytoin stable, no issues (7) Metabolic encephalopathy: 2nd to sepsis - improved waxing/waning but overall improved (8) Diabetes mellitus: cont basal-bolus regimen controlled last a1c 6.2% (9) GERD (gastroesophageal reflux disease): cont PPI (10) HTN (hypertension): uncontrolled cont betablocker cont ARB add amlodipine 5mg daily (11) History of stroke: cont plavix for secondary prevention (12) Chronic kidney disease, stage 3a: Creatinine stable BMP am for stability (13) DVT prophylaxis: heparin 5000 BID daughter updated at bedside today possible d/c back to SNF tomorrow Subjective patient sitting in chair feeding herself lunch. daughter at bedside. daughter reports confusion today but not severe and she is overall "much better than when she came into the hospital." patient w/o complaints. Review of Systems Constitutional: no fever and no anorexia Respiratory: + cough; no dyspnea and no wheezing Cardiovascular: no chest pain and no dyspnea at rest Gastrointestinal: + constipation; no abdominal pain, no nausea, no vomiting and no diarrhea/loose stools Physical Exam Constitutional: well developed and well nourished; no acute distress ENMT: external ear and nose normal, oropharynx normal masked facies Respiratory: Auscultation: + rales (bases); no wheezes Cardiovascular: RRR, no murmur, no edema Heart Sounds: normal S1 and normal S2 Vessels: posterior tibial pulses present and dorsalis pedis pulses present; no JVD Gastrointestinal (Abdomen): normal bowel sounds, soft, nontender, no hepatosplenomegaly Inspection/Auscultation: + abdomen distended (minimal) Neurologic: tremors improved today; masked facies Psychiatric: Orientation: alert Results & Data Vital Signs (Past 12 Hours) Vital Signs Temp Pulse Resp BP BP Pulse Ox 07/27/18 15:00 36.6 C 65 18 173/75 H 175/76 H 93 07/27/18 07:00 36.5 C 60 18 164/72 H 92 Laboratory Results Laboratory Results - last 24 hr 07/26/18 07/27/18 07/27/18 20:11 05:22 05:22 WBC 9.70 RBC 3.65 L Hgb 11.6 L Hct 33.9 L MCV 92.9 MCH 31.8 MCHC 34.2 RDW Std Deviation 44.9 RDW Coeff of Enrrique 13.2 Plt Count 361 MPV 9.0 Sodium 139 Potassium 4.2 Chloride 106 Carbon Dioxide 29 Anion Gap 4.0 BUN 21 H Creatinine 1.00 D Est Cr Clr Drug Dosing 43.1 Est GFR ( Amer) 61.2 Est GFR (Non-Af Amer) 52.8 BUN/Creatinine Ratio 21.4 H Glucose 100 H POC Glucose 146 H Calcium 9.0 07/27/18 07/27/18 07/27/18 08:11 12:01 17:21 WBC RBC Hgb Hct MCV MCH MCHC RDW Std Deviation RDW Coeff of Enrrique Plt Count MPV Sodium Potassium Chloride Carbon Dioxide Anion Gap BUN Creatinine Est Cr Clr Drug Dosing Est GFR ( Amer) Est GFR (Non-Af Amer) BUN/Creatinine Ratio Glucose POC Glucose 121 H 215 H 112 H Calcium (1) UTI (urinary tract infection) Hematuria presence: with hematuria Urinary tract infection type: site unspecified Qualified Code(s): N39.0 - Urinary tract infection, site not specified; R31.9 - Hematuria, unspecified (2) Diabetes mellitus Diabetes mellitus complication status: without complication Diabetes mellitus long-term insulin use: with folding machine tender use Diabetes mellitus type: type 2 Qualified Code(s): E11.9 - Type 2 diabetes mellitus without complications; Z79.4 - city tax auditor (current) use of insulin (3) Sepsis Sepsis type: sepsis due to unspecified organism Qualified Code(s): A41.9 - Sepsis, unspecified organism (4) GERD (gastroesophageal reflux disease) Esophagitis presence: esophagitis presence not specified Qualified Code(s): K21.9 - Gastro-esophageal reflux disease without esophagitis (5) HTN (hypertension) Hypertension type: essential hypertension Qualified Code(s): I10 - Essential (primary) hypertension (6) Pneumonia Laterality: right Lung location: unspecified part of lung Pneumonia type: due to unspecified organism Qualified Code(s): J18.9 - Pneumonia, unspecified organism
[2018-07-27] MEDS: POLYETHYLENE (MIRALAX) 17 GM PACK PO SCH (18:56)
[2018-07-27] MEDS: MIRTAZAPINE TAB 15 MG TAB PO SCH (20:27)
[2018-07-27] MEDS: INSULIN DETEMIR FLEXPEN/FLEX TOUCH 100 UNITS/ML 3ML SQ SCH (21:01)
[2018-07-28] MEDS: PIPERACILLIN/TAZOBACTAM 3.375 GM in DEXTROSE 5% 100 ML IV SCH ×3 (04:17→21:43)
[2018-07-28 06:53] LABS: BUN Creatinine Ratio 18.9 (10-20); Calcium 9.8 mg/dl (8.5-10.1); Creatinine Clr Calc Pharmacy 38.9 ml/min; Est GFR (African American) 53.9; Est GFR (Non-African American) 46.5; Magnesium 2.5 mg/dl (1.8-2.4)
[2018-07-28] MEDS: CARBIDOPA/LEVODOPA 25/100MG TAB PO SCH ×4 (07:43→21:31)
[2018-07-28] MEDS: POLYETHYLENE (MIRALAX) 17 GM PACK PO SCH (07:43)
[2018-07-28] MEDS: DOCUSATE SODIUM 100 MG CAP PO SCH ×2 (07:43→21:43)
[2018-07-28] MEDS: CLOPIDOGREL BISULFATE 75 MG TAB PO SCH (07:43)
[2018-07-28] MEDS: HYDROCODONE/ACETAMOPHEN 5/325MG TAB PO SCH ×2 (07:43→21:44)
[2018-07-28] MEDS: FOLIC ACID 400 MCG TAB PO SCH (07:44)
[2018-07-28] MEDS: levETIRAcetam 500 MG TAB PO SCH ×2 (07:44→21:31)
[2018-07-28] MEDS: HEPARIN SOD 5,000 UNIT/0.5 ML VIAL SQ SCH ×2 (07:44→21:45)
[2018-07-28] MEDS: LOSARTAN POTASSIUM 50 MG TAB PO SCH (07:44)
[2018-07-28] MEDS: SODIUM CHLORIDE 5% OP SOLN 15 ML BTL OPB SCH ×2 (07:44→21:33)
[2018-07-28] MEDS: MAGNESIUM OXIDE 400 MG TAB PO SCH ×2 (07:44→21:32)
[2018-07-28] MEDS: POTASSIUM CHLORIDE 10 MEQ TABCR PO SCH ×2 (07:44→21:32)
[2018-07-28] MEDS: METOPROLOL TARTRATE 50 MG TAB PO SCH ×2 (07:45→21:35)
[2018-07-28] MEDS: LOSARTAN POTASSIUM 25 MG TAB PO SCH (07:45)
[2018-07-28] MEDS: PHENYTOIN SODIUM ER 100 MG CAP PO SCH ×2 (07:45→21:33)
[2018-07-28] MEDS: PANTOprazole 40 MG TAB PO SCH (07:45)
[2018-07-28] MEDS: FUROSEMIDE 20 MG TAB PO SCH (07:45)
[2018-07-28] MEDS: LACTOBACILLUS ACIDOPHILUS (FLORANEX) TAB PO SCH ×3 (07:45→16:04)
[2018-07-28 10:27] LABS: Appearance Urine Clear (Clear); Bacteria Urine Automated Negative (Negative); Bilirubin Urine Negative (Negative); Color Urine Yellow; Epithelial Cell Urine Auto >30 /lpf (0-5); Glucose Urine UA Negative (Negative); Ketones Urine Negative (Negative); Leukocyte Esterase Urine Trace (Negative); Nitrite Urine Negative (Negative); Protein Urine Negative (Negative); Specific Gravity Urine 1.019 (1.000-1.030); Urobilinogen Urine Negative (Negative)
[2018-07-28 16:19] LABS: Base Excess VBG 4.1 mEq/L; Oxygen Saturation VBG 63.6 %; pH VBG 7.46 (7.36-7.41)
[2018-07-28] MEDS: MIRTAZAPINE TAB 15 MG TAB PO SCH (21:33)
[2018-07-28] MEDS: INSULIN DETEMIR FLEXPEN/FLEX TOUCH 100 UNITS/ML 3ML SQ SCH (21:45)
--- NOTE | 2018-07-28 22:47 | Hospitalist Progress Note ---
Date of Service July 28, 2018 Assessment & Plan (1) Metabolic encephalopathy: 2nd to sepsis/infections - had improved nicely over last 48 hours then was worse today. Checked VBG for CO2 retention - normal. Repeat I/O urine for u/a -- u/a MUCH improved and thus UTI adequately treated. Ammonia level normal. Dilantin level not toxic. NOT on any new sedating meds. Remeron and hydrocodone are chronic per records. Current mental status may simply be ongoing delirium in setting of sepsis. Will recheck CBC with a crp tomorrow AM. Serial exams. Hopefully this simply improves/resolves. Prior B12 and TSH levels have been normal. (2) Sepsis: Resolved. 2nd to ESBL e.coli UTI and right-sided pneumonia. Continue zosyn. Day #6/7 today. (3) Pneumonia: IMPROVED. aspiration vs gram negative etiology. likely latter. speech saw; no dysphagia. cont zosyn and supportive care. day #6/7 of zosyn. (4) UTI (urinary tract infection): 2nd ESBL e.coli clinically resolving with repeat u/a today looking much better. urine cx also rechecked for test of cure. day #6 of Rx; plan 7 days in total (5) Acute diastolic CHF (congestive heart failure): Resolved. Euvolemic or slightly dry today. BUN and Cr stable. Cont chronic lasix dose of 20mg daily. (6) Parkinson disease: cont home medications nonambulatory cont PT/OT underlying dementia from her PD? (7) Seizures: continue keppra continue phenytoin stable, no issues dilantin level not toxic (8) Diabetes mellitus: cont basal-bolus regimen controlled last a1c 6.2% (9) GERD (gastroesophageal reflux disease): cont PPI (10) HTN (hypertension): still high/labile cont betablocker cont ARB cont amlodipine 5mg daily (11) History of stroke: cont plavix for secondary prevention if mental status continues to be poor then obtain head imaging to r/o subacute CVA (12) Chronic kidney disease, stage 3a: Creatinine stable BMP am for stability (13) DVT prophylaxis: heparin 5000 BID due to delirium and poor appetite no discharge today Subjective Per staff patient slept all night w/o issues. did not eat ANY breakfast. saw the patient mid-morning. she was sleeping upon arrival. she awoke easily - only complaint was that of fatigue/being tired. when I asked her why she didn't eat breakfast she said "I wasn't feeling well." staff report normal bowel movement this am. for lunch only ate 25% and then promptly went back to bed. Review of Systems Review of Systems: Unobtainable due to cognitive status Physical Exam Constitutional: no acute distress very sleepy but awakens to name being called and answers questions ENMT: Mouth: + dry oral mucous membranes Respiratory: normal respiratory effort Auscultation: + rales (bases - scant); no wheezes Cardiovascular: RRR, no murmur, no edema Heart Sounds: normal S1 and normal S2 Vessels: posterior tibial pulses present and dorsalis pedis pulses present; no JVD Gastrointestinal (Abdomen): normal bowel sounds, soft, nontender, no hepatosplenomegaly Psychiatric: Orientation: alert, oriented to person and oriented to place; + not oriented to time sleepy Results & Data Vital Signs (Past 12 Hours) Vital Signs Temp Pulse Resp BP Pulse Ox 07/28/18 15:00 36.4 C L 61 20 170/67 H 95 Laboratory Results Laboratory Results - last 24 hr 07/28/18 07/28/18 07/28/18 06:07 08:03 10:00 VBG pH VBG pCO2 VBG pO2 VBG HCO3 VBG O2 Saturation VBG Base Excess Barometric Pressure Sodium 140 Potassium 4.0 Chloride 105 Carbon Dioxide 30 Anion Gap 4.0 BUN 21 H Creatinine 1.11 Est Cr Clr Drug Dosing 38.9 Est GFR ( Amer) 53.9 Est GFR (Non-Af Amer) 46.5 BUN/Creatinine Ratio 18.9 Glucose 114 H POC Glucose 136 H Calcium 9.8 Magnesium 2.5 H Ammonia Urine Color Yellow Urine Appearance Clear Urine pH 8.0 H Ur Specific [place] 1.019 Urine Protein Negative Urine Glucose (UA) Negative Urine Ketones Negative Urine Blood Negative Urine Nitrite Negative Urine Bilirubin Negative Urine Urobilinogen Negative Ur Leukocyte Esterase Trace H Urine WBC (Auto) 5-10 H Urine RBC (Auto) 0-4 U Hyaline Cast (Auto) 1-5 U Epithel Cells (Auto) >30 H Urine Bacteria (Auto) Negative Phenytoin 07/28/18 07/28/18 07/28/18 12:12 15:59 16:03 VBG pH VBG pCO2 VBG pO2 VBG HCO3 VBG O2 Saturation VBG Base Excess Barometric Pressure Sodium Potassium Chloride Carbon Dioxide Anion Gap BUN Creatinine Est Cr Clr Drug Dosing Est GFR ( Amer) Est GFR (Non-Af Amer) BUN/Creatinine Ratio Glucose POC Glucose 141 H 127 H Calcium Magnesium Ammonia 25.6 Urine Color Urine Appearance Urine pH Ur Specific [place] Urine Protein Urine Glucose (UA) Urine Ketones Urine Blood Urine Nitrite Urine Bilirubin Urine Urobilinogen Ur Leukocyte Esterase Urine WBC (Auto) Urine RBC (Auto) U Hyaline Cast (Auto) U Epithel Cells (Auto) Urine Bacteria (Auto) Phenytoin 07/28/18 07/28/18 07/28/18 16:03 16:03 20:08 VBG pH 7.46 H VBG pCO2 41 VBG pO2 33 VBG HCO3 28 VBG O2 Saturation 63.6 VBG Base Excess 4.1 Barometric Pressure 733.3 Sodium Potassium Chloride Carbon Dioxide Anion Gap BUN Creatinine Est Cr Clr Drug Dosing Est GFR ( Amer) Est GFR (Non-Af Amer) BUN/Creatinine Ratio Glucose POC Glucose 129 H Calcium Magnesium Ammonia Urine Color Urine Appearance Urine pH Ur Specific [place] Urine Protein Urine Glucose (UA) Urine Ketones Urine Blood Urine Nitrite Urine Bilirubin Urine Urobilinogen Ur Leukocyte Esterase Urine WBC (Auto) Urine RBC (Auto) U Hyaline Cast (Auto) U Epithel Cells (Auto) Urine Bacteria (Auto) Phenytoin 4.6 L (1) Sepsis Sepsis type: sepsis due to unspecified organism Qualified Code(s): A41.9 - Sepsis, unspecified organism (2) Pneumonia Laterality: right Lung location: unspecified part of lung Pneumonia type: due to unspecified organism Qualified Code(s): J18.9 - Pneumonia, unspecified organism (3) UTI (urinary tract infection) Hematuria presence: with hematuria Urinary tract infection type: site unspecified Qualified Code(s): N39.0 - Urinary tract infection, site not specified; R31.9 - Hematuria, unspecified (4) Diabetes mellitus Diabetes mellitus type: type 2 Diabetes mellitus jail insulin use: with exterminator use Diabetes mellitus complication status: without complication Qualified Code(s): E11.9 - Type 2 diabetes mellitus without complications; Z79.4 - assisted (current) use of insulin (5) GERD (gastroesophageal reflux disease) Esophagitis presence: esophagitis presence not specified Qualified Code(s): K21.9 - Gastro-esophageal reflux disease without esophagitis (6) HTN (hypertension) Hypertension type: essential hypertension Qualified Code(s): I10 - Essential (primary) hypertension
[2018-07-29] MEDS: PIPERACILLIN/TAZOBACTAM 3.375 GM in DEXTROSE 5% 100 ML IV SCH ×2 (04:36→12:30)
[2018-07-29 06:13] LABS: Basophils # (auto) 0.05 K/uL (0-0.2); Basophils % (auto) 0.6 %; Eosinophils # (auto) 0.28 K/uL (0-0.5); Eosinophils % (auto) 3.5 %; Hematocrit (blood only) 32.3 % (37-47); Hemoglobin 10.8 g/dL (12.0-16.0); Immature Granulocytes % (auto) 3.7 %; Lymphocytes % (auto) 23.7 %; Mean Corpuscular Hgb Conc 33.4 g/dL (32-36); Mean Platelet Volume 8.8 fL (7.4-10.4); Monocytes # (auto) 0.59 K/uL (0.11-0.59); Monocytes % (auto) 7.4 %; Neutrophils % (auto) 61.1 %; Platelet Count 361 K/uL (130-400); RDW Coefficient of Variation 13.3 % (11.5-14.5); RDW Standard Deviation 46.2 fL (36.4-46.3); White Blood Count 8.02 K/uL (4.8-10.8)
[2018-07-29 06:46] LABS: BUN Creatinine Ratio 16.9 (10-20); C Reactive Protein 3.55 mg/dl (0-0.29); Calcium 9.3 mg/dl (8.5-10.1); Creatinine Clr Calc Pharmacy 36.6 ml/min; Est GFR (African American) 50.1; Est GFR (Non-African American) 43.2
[2018-07-29] MEDS: HYDROCODONE/ACETAMOPHEN 5/325MG TAB PO SCH (09:00)
[2018-07-29] MEDS ORDERED: AMLODIPINE BESYLATE 5 MG TAB PO SCH (09:00)
[2018-07-29] MEDS: DOCUSATE SODIUM 100 MG CAP PO SCH (09:00)
[2018-07-29] MEDS: CLOPIDOGREL BISULFATE 75 MG TAB PO SCH (09:15)
[2018-07-29] MEDS: LACTOBACILLUS ACIDOPHILUS (FLORANEX) TAB PO SCH ×2 (09:15→13:36)
[2018-07-29] MEDS: PANTOprazole 40 MG TAB PO SCH (09:17)
[2018-07-29] MEDS: levETIRAcetam 500 MG TAB PO SCH (09:17)
[2018-07-29] MEDS: LOSARTAN POTASSIUM 50 MG TAB PO SCH (09:17)
[2018-07-29] MEDS: METOPROLOL TARTRATE 50 MG TAB PO SCH (09:17)
[2018-07-29] MEDS: SODIUM CHLORIDE 5% OP SOLN 15 ML BTL OPB SCH (09:17)
[2018-07-29] MEDS: FOLIC ACID 400 MCG TAB PO SCH (09:18)
[2018-07-29] MEDS: PHENYTOIN SODIUM ER 100 MG CAP PO SCH (09:18)
[2018-07-29] MEDS: MAGNESIUM OXIDE 400 MG TAB PO SCH (09:18)
[2018-07-29] MEDS: POTASSIUM CHLORIDE 10 MEQ TABCR PO SCH (09:18)
[2018-07-29] MEDS: FUROSEMIDE 20 MG TAB PO SCH (09:18)
[2018-07-29] MEDS: POLYETHYLENE (MIRALAX) 17 GM PACK PO SCH (09:19)
[2018-07-29] MEDS: CARBIDOPA/LEVODOPA 25/100MG TAB PO SCH ×2 (09:19→13:37)
[2018-07-29] MEDS: LOSARTAN POTASSIUM 25 MG TAB PO SCH (09:20)
[2018-07-29] MEDS: HEPARIN SOD 5,000 UNIT/0.5 ML VIAL SQ SCH (09:22)
--- NOTE | 2018-07-29 11:23 | CT Scan Report ---
CT abd pelvis wo con CT DOSE: 641.75 mGy.cm HISTORY: Pain. Edema. vague abd pain; kidney stones?constipation?other? TECHNIQUE: Multiaxial CT images of the abdomen and pelvis were performed without contrast. A dose lo wering technique was utilized adhering to the principles of ALARA. COMPARISON STUDY: None. FINDINGS: Small right basilar infiltrate combined with effusion. Gallstone the region of the gallblad amanda neck. No evidence for gallbladder wall edema. Liver spleen and pancreas are unremarkable. Kidneys negative for hydronephrosis. Bowel pattern is considered nonobstructive. Mild rectal fecal im paction. Bladder is midline. Scattered colonic diverticuli with no evidence for diverticulitis. IMPRESSION: 1. Small right basilar parenchymal infiltrate combined with a small right effusion. 2. Mild rectal fecal impaction. 3. Nonobstructive bowel pattern. 4. Small gallstone. The above report was generated using voice recognition software. It may contain grammatical, syntax or spelling errors. Electronically signed by: Apolinar Hawley M.D. 07/29/2018 11:21 AM
--- NOTE | 2018-08-07 04:55 | Discharge Summary ---
Date of Service date of admission - July 23, 2018 date of discharge - July 29, 2018 Admission HPI Per Admitting Provider 83-year-old female with past medical history of Parkinson's, CVA, seizures, type 2 diabetes presents from [facility]. Patient is accompanied with her daughter who states that she is currently being treated for a UTI over the past week. Her daughter states that she has confusion at baseline, but has been more confused and irritable over the past week. She began to have fevers last night, high of 102 Fahrenheit. Patient is a poor historian, but denies having any dysuria, shortness of breath, change in appetite, nausea/vomiting/diarrhea. The daughter states that she does not have any bedsores and gets regular skin checks at [facility]. Patient does endorse a cough recently. Today she is on 2 L nasal cannula. No oxygen requirement at home. Principal Diagnosis sepsis 2nd to UTI and pneumonia Discharge Exam Constitutional no acute distress ENMT external ear and nose normal, oropharynx normal Respiratory normal respiratory effort Auscultation: + rales (bases - scant); no wheezes Cardiovascular RRR, no murmur, no edema Heart Sounds: normal S1 and normal S2 Vessels: posterior tibial pulses present and dorsalis pedis pulses present; no JVD Gastrointestinal (Abdomen) normal bowel sounds, soft, nontender, no hepatosplenomegaly Inspection/Auscultation: + abdomen distended (minimal) Psychiatric Orientation: alert, oriented to person and oriented to place; + not oriented to time Discharge Data Allergies Allergy/AdvReac Type Severity Reaction Status Date / Time No Known Allergies Allergy Unverified 07/23/18 01:01 Consultations PT, OT speech therapy Procedures Performed CT abd/pelvis - IMPRESSION: 1. Small right basilar parenchymal infiltrate combined with a small right effusion. 2. Mild rectal fecal impaction. 3. Nonobstructive bowel pattern. 4. Small gallstone. Hospital Course (1) Metabolic encephalopathy: 2nd to sepsis/infections - had improved nicely over the first portion of her stay. Then, her mental status began to wax and wane. Checked VBG for CO2 retention - that was normal. Repeat I/O urine for u/a -- u/a MUCH improved and urine culture showed resolution of the e.coli. Ammonia level normal. Dilantin level not toxic. NOT on any new sedating meds. Remeron and hydrocodone are chronic per records. Prior vitamin B12 and TSH levels have been normal. Mental status was likely ongoing delirium in the setting of sepsis. Daughter confirmed that her mother even has days at the care home like this -- that is, there are days when she is sleepy, skips meals, is more confused than other days, etc. Her daughter also confirmed that her mother's mental status was much better than when she first arrived in the hospital. Thus, it was felt we were close to baseline for her mental status. (2) Sepsis: Resolved. 2nd to ESBL e.coli UTI and right-sided pneumonia. Received 7 days of zosyn while hospitalized for each infectious issue. (3) Pneumonia: IMPROVED. aspiration vs gram negative etiology. likely latter. speech saw; no dysphagia. Received 7 days of zosyn. O2 was weaned off easily while hospitalized. (4) UTI (urinary tract infection): 2nd ESBL e.coli Received 7 days of zosyn. A repeat u/a later in her stay was much improved, and urine culture ultimately showed resolution of the e.coli. Due to frequent UTIs could consider urology referral for additional work-up. (5) Acute diastolic CHF (congestive heart failure): Resolved. Received several doses of IV lasix while hospitalized. Euvolemic or slightly dry at time of discharge. BUN and Cr stable. She will continue her chronic lasix dose of 20mg daily. (6) Parkinson disease: cont home medications nonambulatory cont PT/OT Appears to have an underlying dementia perhaps from her PD. (7) Seizures: continue keppra continue phenytoin stable, no issues dilantin level not toxic (8) Diabetes mellitus: cont basal-bolus regimen controlled last a1c 6.2% (9) GERD (gastroesophageal reflux disease): cont PPI (10) HTN (hypertension): cont betablocker cont ARB cont amlodipine 5mg daily - this is a NEW medication for her Some lability was seen in her BPs during the stay - suspect due to agitation & delirium. (11) History of stroke: cont plavix for secondary prevention (12) Chronic kidney disease, stage 3a: Creatinine stable at 1.1 at discharge. Total Time Total Time Spent Total Time Spent (In Minutes): 45 Total Time Includes: Examination of the Patient, Discharge Planning and Medication Reconciliation Discharge Plan Discharge Items Patient Disposition: Transfer Custodial Fac Reason For Visit: SEPSIS Discharge Diagnosis: sepsis and confusion due to ESBL e.coli UTI and right-sided pneumonia Discharge Goals: Diagnostic testing and Therapeutic intervention Activity: Resume your previous activity Non-emergency contact: Primary Care Provider Call non-emergency contact if: you have any medication questions, your symptoms worsen, your pain is not controlled and your temperature is above 100.5 Follow-up/Referrals: Khadijah Uriostegui CRNP [Nurse Practitioner] - (see [facility] - first available - recurrent UTIs) Minnie Campos [Primary Care Provider] - (see Medical Record Coder within 2 days) Diet: Carb Consistent or DM2 Addtl Provider Instructions: 1. Check blood sugars AC & HS 2. Recheck CBC, CMP in 5 days 3. Aspiration precautions - upright for all meals, stringent oral hygiene, etc. 4. Urology referral for recurrent UTIs 5. start amlodipine 5mg daily for high blood pressure; first dose 07/30/2018 Prescriptions: New amlodipine [Norvasc] 5 mg Tablet 5 mg PO QAM Qty: 30 RF: 5 polyethylene glycol 3350 [Miralax] 17 gram powder in packet 17 gm PO DAILY Qty: 30 RF: 2 Continued losartan 50 mg Tablet 50 mg PO DAILY RF: 0 sodium chloride 5 % Drops 1 drp OPB BID RF: 0 acetaminophen 325 mg Tablet 650 mg PO Q8 PRN (Reason: Fever Or Pain) RF: 0 levetiracetam 500 mg Tablet 500 mg PO BID RF: 0 ketotifen fumarate 0.025 % (0.035 %) Drops 1 drp OPHTHALMIC (EYE) Q12H RF: 0 phenytoin sodium extended 100 mg Capsule 100 mg PO BID RF: 0 clopidogrel 75 mg Tablet 75 mg PO DAILY RF: 0 folic acid 400 mcg Tablet 0.4 mg PO DAILY RF: 0 magnesium hydroxide [Milk of Magnesia] 400 mg/5 mL Suspension 30 ml PO DIRECTED PRN (Reason: Constipation) RF: 0 bisacodyl [Dulcolax (bisacodyl)] 10 mg Suppository 10 mg OR DIRECTED RF: 0 pantoprazole 40 mg Tablet,Delayed Release (Dr/Ec) 40 mg PO DAILY RF: 0 losartan 25 mg Tablet 25 mg PO DAILY RF: 0 metoprolol tartrate 50 mg Tablet 50 mg PO Q12H RF: 0 docusate sodium 100 mg Capsule 100 mg PO BID RF: 0 furosemide 20 mg Tablet 20 mg PO DAILY RF: 0 mirtazapine 15 mg Tablet 15 mg PO HS RF: 0 alum-mag hydroxide-simeth [Antacid Liquid] 200-200-20 mg/5 mL Suspension 30 ml PO Q4H PRN (Reason: Heartburn) RF: 0 insulin lispro [Humalog U-100 Insulin] 100 unit/mL Solution 1 sliding scale dose SUBCUT UD RF: 0 Renal Caps 1 mg Capsule 1 cap PO DAILY RF: 0 carbidopa-levodopa 25-100 mg Tablet 1.5 tab PO QID RF: 0 Systane Ultra 0.4-0.3 % Drops 1 drp OPB TID RF: 0 Levemir U-100 Insulin 100 unit/mL Solution 2 unit SUBCUT PM RF: 0 cholecalciferol (vitamin D3) [Vitamin D3] 1,000 unit Tablet 5 tab PO DAILY RF: 0 potassium chloride 10 mEq tablet extended release 10 meq PO BID RF: 0 Nuplazid 34 mg capsule 34 mg PO QAM RF: 0 acetaminophen [Tylenol] 325 mg Tablet 650 mg PO QPM RF: 0 hydrocodone-acetaminophen 5-325 mg Tablet 2 tab PO BID Qty: 120 RF: 0 Discontinued polyethylene glycol 3350 17 gram/dose Powder 14 g PO DIRECTED RF: 0 cefuroxime axetil 500 mg tablet 500 mg PO BID RF: 0 Stand-Alone Forms: [facility] Discharge Orders: Discharge Order (Routine); Ordered 07/29/18 Ordered By: Donny Pineda Skilled Items Patient informed of condition?: Yes DNR: Yes Discharge Level of Care: Skilled Communicable Disease: No Discharge Prognosis: Stable Admission Data Admit Date/Time: 07/23/18 03:20 Attending Provider: Donny Pineda Admit Provider: Skinny Ann Primary Care Provider: Minnie Campos Service: Medical Other Interventions: Discharge Summary Assessment (RN) Last Done: 07/29/18 15:00 Pending Studies at Discharge: No DC Date/Time DO NOT enter until pt leaves facility: 07/29/18 15:41
== END 2018-07-29 15:41 | DRG 871 ==
LOC: ED 22:12 → SUATTDRO 07-23 03:20 → 2S 07-23 03:20 → 4W 07-26 18:29
DX: R56.9 Unspecified convulsions; Z79.899 Other long term (current) drug therapy; A41.51 Sepsis due to Escherichia coli [E. coli]; Z16.12 Extended spectrum beta lactamase (ESBL) resistance; J15.6 Pneumonia due to other Gram-negative bacteria; E11.22 Type 2 diabetes mellitus with diabetic chronic kidney disease; I50.31 Acute diastolic (congestive) heart failure; F02.80 Dementia in other diseases classified elsewhere, unspecified severity, without behavioral disturbance, psychotic disturbance, mood disturbance, and anxiety; Z86.73 Personal history of transient ischemic attack (TIA), and cerebral infarction without residual deficits; G20 Parkinson's disease; N39.0 Urinary tract infection, site not specified; N18.3 Chronic kidney disease, stage 3 (moderate); Z79.02 Long term (current) use of antithrombotics/antiplatelets; Z79.4 Long term (current) use of insulin; Z79.891 Long term (current) use of opiate analgesic; Z87.891 Personal history of nicotine dependence; K21.9 Gastro-esophageal reflux disease without esophagitis; I13.0 Hypertensive heart and chronic kidney disease with heart failure and stage 1 through stage 4 chronic kidney disease, or unspecified chronic kidney disease; Z66 Do not resuscitate; Y95 Nosocomial condition; G93.41 Metabolic encephalopathy

== ENCOUNTER 2018-09-02 15:18 | Inpatient (IN) ==
--- NOTE | 2018-09-02 15:45 | Emergency Department Note ---
History of Present Illness General Chief complaint: Illness Stated complaint: AMS, Time Seen by Provider: 09/02/18 15:24 Source: patient and family Mode of arrival: EMS Limitations: no limitations History of Present Illness This 83-year-old white female presents by ambulance for evaluation of altered mental status that occurred today right after lunch. Patient lives at [facility]. She was being visited by family today. They noticed she was having confusion, inappropriate comments, and difficulty feeding herself. She has a known UTI and is currently on Bactrim, diagnosed 4 days ago. Culture showed is sensitive to Bactrim. She was seen here approximately a month ago for sepsis from UTI and pneumonia and had confusion at that time as well. Temperature obtained earlier today was 99.1. Because of this, she was sent here for further evaluation. Patient denies any chest pain, shortness of breath, nausea, vomiting, chills, sweats, or abdominal pain. She denies any difficulty with voiding. She states she feels fine. Her daughter accompanies her today. She normally sees Dr. Koroma and Dr. Jasso. Home Medications Home Medications Medication Instructions Recorded Confirmed Type Levemir U-100 Insulin 2 unit SUBCUT QPM 11/16/17 09/02/18 History Renal Caps 1 cap PO DAILY 11/16/17 09/02/18 History Systane Ultra 1 drp OPB TID 11/16/17 09/02/18 History acetaminophen 650 mg PO Q8H PRN 11/16/17 09/02/18 History alum-mag hydroxide-simeth [Antacid 30 ml PO Q4H PRN 11/16/17 09/02/18 History Liquid] bisacodyl [Dulcolax (bisacodyl)] 10 mg WA DIRECTED PRN 11/16/17 09/02/18 History carbidopa-levodopa 1.5 tab PO QID 11/16/17 09/02/18 History clopidogrel 75 mg PO DAILY 11/16/17 09/02/18 History docusate sodium 200 mg PO DAILY 11/16/17 09/02/18 History folic acid 0.4 mg PO DAILY 11/16/17 09/02/18 History furosemide 20 mg PO DAILY 11/16/17 09/02/18 History insulin lispro [Humalog U-100 1 sliding scale dose SUBCUT UD PRN 11/16/17 09/02/18 History Insulin] ketotifen fumarate 1 drp OPB Q12H 11/16/17 09/02/18 History levetiracetam 500 mg PO BID 11/16/17 09/02/18 History losartan 25 mg PO DAILY 11/16/17 09/02/18 History losartan 50 mg PO DAILY 11/16/17 09/02/18 History magnesium hydroxide [Milk of 30 ml PO DIRECTED PRN 11/16/17 09/02/18 History Magnesia] mirtazapine 15 mg PO HS 11/16/17 09/02/18 History sodium chloride 1 drp OPB BID 11/16/17 09/02/18 History Nuplazid 34 mg PO QAM 07/23/18 09/02/18 History acetaminophen [Tylenol] 650 mg PO QPM 07/23/18 09/02/18 History amlodipine [Norvasc] 5 mg PO QAM #30 tab 07/29/18 09/02/18 Rx hydrocodone-acetaminophen 2 tab PO BID #120 tab 07/29/18 09/02/18 Rx polyethylene glycol 3350 [Miralax] 17 gm PO DAILY #30 ea 07/29/18 09/02/18 Rx cholecalciferol (vitamin D3) 5,000 unit PO DAILY 09/02/18 09/02/18 History [Vitamin D3] gabapentin 100 mg PO DAILY 09/02/18 09/02/18 History methenamine hippurate 1 g PO DAILY 09/02/18 09/02/18 History metoprolol succinate 100 mg PO DAILY 09/02/18 09/02/18 History omeprazole 20 mg PO DAILY 09/02/18 09/02/18 History ondansetron HCl 4 mg PO Q6H PRN 09/02/18 09/02/18 History phenytoin sodium extended 100 mg PO BID 09/02/18 09/02/18 History potassium chloride 20 meq PO DAILY 09/02/18 09/02/18 History sodium phosphates [Fleet Enema] 0 ml WA DIRECTED PRN 09/02/18 09/02/18 History sulfamethoxazole-trimethoprim 1 tab PO BID 09/02/18 09/02/18 History Allergies Allergy/AdvReac Type Severity Reaction Status Date / Time No Known Allergies Allergy Verified 09/02/18 15:41 Past Med/Surg History Medical History Seizure disorder (Chronic) Essential hypertension (Chronic) UTI (urinary tract infection), bacterial (Acute) Acute kidney injury superimposed on chronic kidney disease (Acute) Diabetes mellitus (Chronic) Metabolic encephalopathy (Acute) Parkinson disease (Chronic) Pneumonia (Acute) Parkinson disease Seizure Stroke TIA (transient ischemic attack) Family History Other No pertinent family history Social History Preferred Language: Pakistani Communication Ability: Effective Truss Builder Required: No Beliefs That Will Affect Care: None Current Living Situation: Jail Other Information That Helps Us Care for You: No Feels Safe at Home: Yes Smoking Status: Former smoker Do You Dip or Chew Tobacco: No Second Hand Exposure: No Tobacco Cessation Education Requested by Patient: No Hx Alcohol Use: No Hx Substance Use: No Review of Systems A total of 10 systems reviewed and were otherwise negative Physical Exam Vital Signs Vital Signs - 24 hr 09/02/18 15:29 09/02/18 15:30 09/02/18 15:33 Temperature 37.6 C H Temperature Source Oral Sepsis Recent Fever Within 48 Hours Yes Sepsis Action Taken by Nursing No Action Required Pulse Rate 74 75 74 Pulse Rate from SpO2 Sensor 74 74 Pulse Rhythm Regular Pulse Strength Normal Respiratory Rate 20 12 10 L Respiratory Effort / Characteristics Non-Labored Spontaneous Respiratory Depth Normal Respiratory Pattern Regular Blood Pressure 161/54 H 171/58 H Blood Pressure Mean 89 95 Blood Pressure Position Lying Pulse Oximetry 98 98 99 Oxygen Delivery Method Room Air 09/02/18 15:46 09/02/18 16:00 09/02/18 16:17 Temperature Temperature Source Sepsis Recent Fever Within 48 Hours Sepsis Action Taken by Nursing Pulse Rate 75 72 75 Pulse Rate from SpO2 Sensor 74 73 75 Pulse Rhythm Pulse Strength Respiratory Rate 14 19 15 Respiratory Effort / Characteristics Respiratory Depth Respiratory Pattern Blood Pressure 157/67 H 161/76 H 196/77 H Blood Pressure Mean 97 104 116 Blood Pressure Position Pulse Oximetry 97 98 98 Oxygen Delivery Method 09/02/18 16:30 09/02/18 16:31 09/02/18 17:52 Temperature Temperature Source Sepsis Recent Fever Within 48 Hours Sepsis Action Taken by Nursing Pulse Rate 73 70 74 Pulse Rate from SpO2 Sensor 73 72 Pulse Rhythm Pulse Strength Respiratory Rate 15 13 25 H Respiratory Effort / Characteristics Respiratory Depth Respiratory Pattern Blood Pressure 183/68 H Blood Pressure Mean 106 Blood Pressure Position Pulse Oximetry 97 97 Oxygen Delivery Method 09/02/18 18:00 09/02/18 18:30 Temperature Temperature Source Sepsis Recent Fever Within 48 Hours Sepsis Action Taken by Nursing Pulse Rate 75 75 Pulse Rate from SpO2 Sensor Pulse Rhythm Pulse Strength Respiratory Rate 31 H 15 Respiratory Effort / Characteristics Respiratory Depth Respiratory Pattern Blood Pressure Blood Pressure Mean Blood Pressure Position Pulse Oximetry Oxygen Delivery Method General: Frail, elderly white female, in no acute distress. Laying on the bed. Alert and talkative. Oriented to place. Skin: Warm and dry with good turgor. No rashes or lesions. No ecchymosis or erythema. The patient is not diaphoretic. No abrasions. No significant peripheral edema. HEENT: Normocephalic atraumatic. Eyes PERRLA, EOMI. No conjunctiva or scleral injection. Nares patent bilaterally without turbinate enlargement. No significant drainage. No epistaxis. Oropharynx without erythema or exudate. Uvula midline, oral mucosa moist. No lesions present. Fair dentition. Heart: Heart RRR. No MGR. Peripheral pulses are 2+. Lungs: Lungs have expiratory crackles in the bases. Scattered rhonchi. No wheezing. Good air movement. The patient is able to take a deep breath. Abdomen: Abdomen was inspected, auscultated, and palpated. Bowel sounds present x 4. Soft, nontender to palpation. No hepato-splenomegaly. No masses noted. No rebound. Musculoskeletal: Gross motor function of the upper and lower extremities is intact and unremarkable. Good glassware verifier strength bilaterally. She is able to extend the digits on each hand. Intact flexion and extension actively to the ankles and toes. Neurologic: Gross sensation is intact across the upper and lower extremities by soft touch bilaterally. Course Administered Medications Acetaminophen (Tylenol) 650 mg PO Q8H PRN PRN Reason: Fever Or Pain Stop: 10/02/18 19:54 Last Admin: 09/03/18 09:30 Dose: 650 mg Documented by: [id number] Admin: 09/02/18 22:06 Dose: 650 mg Documented by: [id number] Amlodipine Besylate (Norvasc) 5 mg PO QAM [facility] Stop: 10/03/18 08:59 Last Admin: 09/03/18 07:52 Dose: 5 mg Documented by: [id number] Artificial Tears (Artificial Tears) 1 drops OPB TID JA Stop: 10/02/18 20:59 Last Admin: 09/03/18 09:41 Dose: 1 drops Documented by: [id number] Admin: 09/02/18 22:05 Dose: Not Given Documented by: [id number] Carbidopa/Levodopa (Sinemet 25/100 Mg) 1.5 tab PO QID [facility] Stop: 10/02/18 20:59 Last Admin: 09/03/18 07:55 Dose: 1.5 tab Documented by: [id number] Admin: 09/02/18 21:58 Dose: 1.5 tab Documented by: [id number] Clopidogrel Bisulfate (Plavix) 75 mg PO DAILY [facility] Stop: 10/03/18 08:59 Last Admin: 09/03/18 08:01 Dose: 75 mg Documented by: [id number] Docusate Sodium (Colace) 200 mg PO DAILY [facility] Stop: 10/03/18 08:59 Last Admin: 09/03/18 07:51 Dose: 200 mg Documented by: [id number] Enoxaparin Sodium (Lovenox) 30 mg SQ Q24H [facility] Stop: 10/02/18 21:59 Last Admin: 09/02/18 22:04 Dose: 30 mg Documented by: [id number] Folic Acid (Folvite) 400 mcg PO DAILY [facility] Stop: 10/03/18 08:59 Last Admin: 09/03/18 08:01 Dose: 400 mcg Documented by: [id number] Sodium Chloride (Nss 1000ml) 1,000 mls @ 80 mls/hr IV .[id number] [facility] Stop: 10/02/18 19:54 Last Admin: 09/03/18 11:16 Dose: 80 mls/hr Documented by: [id number] Infusion: 09/03/18 11:16 Dose: 0 mls/hr Documented by: [id number] Admin: 09/02/18 20:32 Dose: 80 mls/hr Documented by: [id number] Piperacillin Sod/Tazobactam (Sod 3.375 gm/ Dextrose) 115 mls @ 28.75 mls/hr IV Q8H [facility]; Protocol Stop: 09/10/18 00:00 Last Infusion: 09/03/18 12:19 Dose: 0 mls/hr Documented by: [id number] Admin: 09/03/18 08:16 Dose: 28.8 mls/hr Documented by: [id number] Infusion: 09/03/18 03:39 Dose: 0 mls/hr Documented by: [id number] Admin: 09/02/18 23:52 Dose: 28.8 mls/hr Documented by: [id number] Insulin Aspart (Novolog Flexpen) 0 units SC ACHS JA Stop: 10/02/18 20:59 Last Admin: 09/03/18 11:55 Dose: Not Given Documented by: [id number] Cosigned by: [id number] Admin: 09/03/18 09:37 Dose: Not Given Documented by: [id number] Cosigned by: [id number] Admin: 09/02/18 21:53 Dose: Not Given Documented by: [id number] Cosigned by: [id number] Levetiracetam (Keppra) 500 mg PO BID JA Stop: 10/02/18 20:59 Last Admin: 09/03/18 07:54 Dose: 500 mg Documented by: [id number] Admin: 09/02/18 21:56 Dose: 500 mg Documented by: [id number] Losartan Potassium (Cozaar) 25 mg PO DAILY [facility] Stop: 10/03/18 08:59 Last Admin: 09/03/18 08:01 Dose: 25 mg Documented by: [id number] Losartan Potassium (Cozaar) 50 mg PO DAILY JA Stop: 10/03/18 08:59 Last Admin: 09/03/18 07:53 Dose: 50 mg Documented by: [id number] Methenamine Hippurate (Urex) 1 gm PO DAILY JA Stop: 09/08/18 08:59 Last Admin: 09/03/18 08:02 Dose: 1 gm Documented by: [id number] Metoprolol Succinate (Toprol Xl) 100 mg PO DAILY [facility] Stop: 10/03/18 08:59 Last Admin: 09/03/18 08:02 Dose: 100 mg Documented by: [id number] Miscellaneous (Order Awaiting Action) 1 ea N/A QS [facility] Stop: 10/03/18 00:00 Last Admin: 09/03/18 09:39 Dose: Not Given Documented by: [id number] Admin: 09/02/18 23:51 Dose: Not Given Documented by: [id number] Pantoprazole Sodium (Protonix) 40 mg PO DAILY JA Stop: 10/03/18 08:59 Last Admin: 09/03/18 07:52 Dose: 40 mg Documented by: [id number] Phenytoin Sodium (Dilantin Er) 100 mg PO BID JA Stop: 10/02/18 20:59 Last Admin: 09/03/18 11:17 Dose: Not Given Documented by: [id number] Admin: 09/02/18 21:55 Dose: 100 mg Documented by: [id number] Polyethylene Glycol (Miralax Powder Packet) 17 gm PO DAILY JA Stop: 10/03/18 08:59 Last Admin: 09/03/18 09:42 Dose: Not Given Documented by: [id number] Potassium Chloride (Klor-Con M20) 20 meq PO DAILY JA Stop: 10/03/18 08:59 Last Admin: 09/03/18 08:02 Dose: 20 meq Documented by: [id number] Sodium Chloride (Missy 128 Oph) 1 drops OPB BID JA Stop: 10/02/18 20:59 Last Admin: 09/03/18 08:03 Dose: 1 drops Documented by: [id number] Admin: 09/02/18 21:57 Dose: 1 drops Documented by: [id number] Vitamin B Complex/Folic Acid (Nephrocaps) 1 cap PO DAILY JA Stop: 10/03/18 08:59 Last Admin: 09/03/18 07:53 Dose: 1 cap Documented by: [id number] Vitamin D (Vitamin D3) 5,000 units PO DAILY JA Stop: 10/03/18 08:59 Last Admin: 09/03/18 07:53 Dose: 5,000 units Documented by: [id number] Discontinued Medications Piperacillin Sod/Tazobactam Sod (Zosyn) 4.5 gm in 120 mls @ 240 mls/hr IV NOW ONE Stop: 09/02/18 18:27 Last Infusion: 09/02/18 19:39 Dose: 0 mls/hr Documented by: [id number] Admin: 09/02/18 19:06 Dose: 240 mls/hr Documented by: [id number] Vancomycin HCl 1,500 mg/ (Sodium Chloride) 530 mls @ 200 mls/hr IV TODAY@2029 JA Stop: 09/02/18 23:08 Last Infusion: 09/02/18 23:51 Dose: 0 mls/hr Documented by: [id number] Admin: 09/02/18 20:32 Dose: 200 mls/hr Documented by: [id number] Insulin Detemir (Levemir Flextouch) 2 units SQ QPM JA Stop: 10/02/18 20:59 Last Admin: 09/02/18 22:01 Dose: 2 units Documented by: [id number] Cosigned by: [id number] Medical Decision Making Differential Diagnosis Sepsis, pneumonia, UTI, stroke, dehydration, dementia Medical Records Attestation: I reviewed the patient's medical records. Home Medications Current Medication List: was personally reviewed by me Laboratory Data Attestation: I reviewed the patient's lab results. CBC, chemistry panel, and UA were obtained today. CBC shows mild elevation in white count at 11.23. Kidney function is essentially the same as her last admission. LFTs are unremarkable. UA is pending. Result diagrams: 09/03/18 05:16 09/03/18 05:16 Lab Results 09/02/18 09/02/18 09/02/18 Range/Units 16:10 16:10 18:31 WBC 11.23 H (4.8-10.8) K/uL RBC 3.97 L (4.2-5.4) M/uL Hgb 12.9 (12.0-16.0) g/dL Hct 38.5 (37-47) % MCV 97.0 (80-100) fL MCH 32.5 (25-34) pg MCHC 33.5 (32-36) g/dL RDW Std Deviation 47.6 H (36.4-46.3) fL RDW Coeff of Enrrique 13.4 (11.5-14.5) % Plt Count 277 (130-400) K/uL MPV 9.8 (7.4-10.4) fL Immature Gran % (Auto) 0.2 % Neut % (Auto) 81.6 % Lymph % (Auto) 9.0 % [place] % (Auto) 6.9 % Eos % (Auto) 1.9 % Baso % (Auto) 0.4 % Immature Gran # (Auto) 0.02 (0.00-0.02) K/uL Neut # (Auto) 9.18 H (1.4-6.5) K/uL Lymph # (Auto) 1.01 L (1.2-3.4) K/uL [place] # (Auto) 0.77 H (0.11-0.59) K/uL Eos # (Auto) 0.21 (0-0.5) K/uL Baso # (Auto) 0.04 (0-0.2) K/uL Sodium 137 (136-145) mmol/L Potassium 4.4 (3.5-5.1) mmol/L Chloride 105 (98-107) mmol/L Carbon Dioxide 27 (21-32) mmol/L Anion Gap 5.0 (3-11) BUN 29 H (7-18) mg/dl Creatinine 1.45 H (0.6-1.2) mg/dl Est Cr Clr Drug Dosing 28.5 ml/min Est GFR ( Amer) 39.0 Est GFR (Non-Af Amer) 33.7 BUN/Creatinine Ratio 20.2 H (10-20) Glucose 144 H (70-99) mg/dl POC Lactic Acid Peng 1.37 (0.90-1.70) mmol/L Calcium 9.0 (8.5-10.1) mg/dl Phosphorus 3.0 (2.5-4.9) mg/dl Total Bilirubin 0.4 (0.2-1) mg/dl AST 4 L (15-37) U/L ALT 8 L (12-78) U/L Alkaline Phosphatase 101 (45-117) U/L Total Protein 7.2 (6.4-8.2) gm/dl Albumin 3.4 (3.4-5.0) gm/dl Globulin 3.8 (2.5-4.0) gm/dl Albumin/Globulin Ratio 0.9 (0.9-2) Phenytoin (10-20) mcg/ml 09/02/18 Range/Units 18:42 WBC (4.8-10.8) K/uL RBC (4.2-5.4) M/uL Hgb (12.0-16.0) g/dL Hct (37-47) % MCV (80-100) fL MCH (25-34) pg MCHC (32-36) g/dL RDW Std Deviation (36.4-46.3) fL RDW Coeff of Enrrique (11.5-14.5) % Plt Count (130-400) K/uL MPV (7.4-10.4) fL Immature Gran % (Auto) % Neut % (Auto) % Lymph % (Auto) % [place] % (Auto) % Eos % (Auto) % Baso % (Auto) % Immature Gran # (Auto) (0.00-0.02) K/uL Neut # (Auto) (1.4-6.5) K/uL Lymph # (Auto) (1.2-3.4) K/uL [place] # (Auto) (0.11-0.59) K/uL Eos # (Auto) (0-0.5) K/uL Baso # (Auto) (0-0.2) K/uL Sodium (136-145) mmol/L Potassium (3.5-5.1) mmol/L Chloride (98-107) mmol/L Carbon Dioxide (21-32) mmol/L Anion Gap (3-11) BUN (7-18) mg/dl Creatinine (0.6-1.2) mg/dl Est Cr Clr Drug Dosing ml/min Est GFR ( Amer) Est GFR (Non-Af Amer) BUN/Creatinine Ratio (10-20) Glucose (70-99) mg/dl POC Lactic Acid Peng (0.90-1.70) mmol/L Calcium (8.5-10.1) mg/dl Phosphorus (2.5-4.9) mg/dl Total Bilirubin (0.2-1) mg/dl AST (15-37) U/L ALT (12-78) U/L Alkaline Phosphatase (45-117) U/L Total Protein (6.4-8.2) gm/dl Albumin (3.4-5.0) gm/dl Globulin (2.5-4.0) gm/dl Albumin/Globulin Ratio (0.9-2) Phenytoin 8.6 L (10-20) mcg/ml Imaging Data Attestation: I personally reviewed and interpreted this imaging study as follows: Radiologist's Impression: Chest x-ray obtained today was reviewed by me and read by radiology. Patchy airspace opacities are seen at the left lung base. This could represent atelectasis versus pneumonia/aspiration pneumonitis. ECG Data Additional Comments: EKG obtained today was reviewed by me as well as Dr. Magallon. Normal sinus rhythm with a rate of 73. No significant change when compared to EKG from November 2017. No acute ST or T wave changes. Blood Pressure Blood Pressure Disposition: further management by hospitalist DINESH Narrative Patient was evaluated in C9. IV was established. Labs were obtained. EKG and chest x-ray were also obtained. Patient was at times very clear and lucid during our conversation. At other times she was very confused. She did ask repetitively to be put in bed, while laying in bed. Given her mild elevation in temperature, mild elevation in white count, and questionable chest film, probability of aspiration pneumonia exists. This was discussed with her daughter. Blood cultures were obtained x2. Patient was given Zosyn 4.5 g IV. Not in any hospitalist service was consulted for admission. Please see that dictation from Dr. Robertson for specifics. Patient was seen in conjunction with Dr. Magallon, who also evaluated the patient and concurred with today's diagnosis and treatment plan. Patient remained stable while in the ED. Impression & Plan Altered mental status, Aspiration pneumonia Discharge Plan Visit Data *Final* Discharge Date/Time: 09/02/18 19:38 Chief Complaint: Illness Stated Complaint: AMS, ED Provider: Marilyn Magallon ED Midlevel Provider: Hugo George Discharge Problem: Altered mental status, Aspiration pneumonia Patient Disposition: Admitted As Inpatient Discharge Instructions Interventions: ED Discharge Assessment Last Done: 09/02/18 19:38 Discharge Problem: Altered mental status Qualifiers: Altered mental status type: transient alteration of awareness Qualified Code(s): R40.4 - Transient alteration of awareness Aspiration pneumonia Qualifiers: Aspiration pneumonia type: unspecified Laterality: left Lung location: lower lobe of lung Qualified Code(s): J69.0 - Pneumonitis due to inhalation of food and vomit
[2018-09-02 16:35] LABS: Basophils # (auto) 0.04 K/uL (0-0.2); Basophils % (auto) 0.4 %; Eosinophils # (auto) 0.21 K/uL (0-0.5); Eosinophils % (auto) 1.9 %; Hematocrit (blood only) 38.5 % (37-47); Hemoglobin 12.9 g/dL (12.0-16.0); Immature Granulocytes # (auto) 0.02 K/uL (0.00-0.02); Immature Granulocytes % (auto) 0.2 %; Lymphocytes # (auto) 1.01 K/uL (1.2-3.4); Mean Corpuscular Hgb Conc 33.5 g/dL (32-36); Mean Platelet Volume 9.8 fL (7.4-10.4); Monocytes # (auto) 0.77 K/uL (0.11-0.59); Monocytes % (auto) 6.9 %; Neutrophils # (auto) 9.18 K/uL (1.4-6.5); Neutrophils % (auto) 81.6 %; Platelet Count 277 K/uL (130-400); RDW Coefficient of Variation 13.4 % (11.5-14.5); RDW Standard Deviation 47.6 fL (36.4-46.3); Red Blood Count 3.97 M/uL (4.2-5.4); White Blood Count 11.23 K/uL (4.8-10.8)
[2018-09-02 16:56] LABS: Albumin Level 3.4 gm/dl (3.4-5.0); BUN Creatinine Ratio 20.2 (10-20); Creatinine Clr Calc Pharmacy 28.5 ml/min; Est GFR (Non-African American) 33.7; Potassium 4.4 mmol/L (3.5-5.1)
[2018-09-02 16:58] LABS: Albumin Globulin Ratio 0.9 (0.9-2); Bilirubin,Total 0.4 mg/dl (0.2-1); Globulin 3.8 gm/dl (2.5-4.0); Total Protein 7.2 gm/dl (6.4-8.2)
--- NOTE | 2018-09-02 17:09 | XRay Report ---
TWO VIEW CHEST CLINICAL HISTORY: Change in mental status. FINDINGS: AP and lateral chest radiographs are compared to study dated 07/25/2018 and correlated with abdominal CT dated 07/29/2018. The AP view is significantly degraded by patient rotation. The heart is top normal for projection, noting atherosclerotic calcification of the thoracic aorta. There is pulm onary vascular congestion. There are low lung volumes. Patchy airspace opacities are seen at the left lung base. No large pleural effusion is identified. There is no pneumothorax. The skeletal structure s are osteopenic. The bony thorax is grossly intact. There are compression deformities in the upper l umbar spine with evidence of previous vertebroplasty. IMPRESSION: 1. There is mild pulmonary vascular congestion. 2. Patchy airspace opacities are seen at the left lung base. This could represent atelectasis versus pneumonia/aspiration pneumonitis. Clinical correlation will be required and radiographic follow-up to resolution is recommended. 3. Low lung volumes. Electronically signed by: Marcos Powers M.D. 09/02/2018 5:07 PM
[2018-09-02] MEDS ORDERED: PIPERACILLIN/TAZOBACTAM 4.5 GM/120 ML BAG IV ONE (17:58)
[2018-09-02] MEDS ORDERED: PIPERACILL/TAZOBAC CONSULT ACTIVE PRN ×2 (17:58→19:55)
--- NOTE | 2018-09-02 18:03 | Emergency Department Note ---
ED Visit Note Patient seen and evaluated bedside after discussion with PA. Please refer to his note for additional details. Patient brought in for altered mental status, concern for worsening urinary tract infection that had recently been diagnosed as an outpatient. Patient already started on Bactrim. Chest x-ray concerning for possible aspiration pneumonitis versus pneumonia. No evidence of bacteremia/sepsis. Case was discussed with hospitalist for additional evaluation and management. .
--- NOTE | 2018-09-02 18:41 | History & Physical Report ---
Date of Service September 02, 2018 Assessment & Plan (1) Pneumonia: Healthcare associated pneumonia or aspiration pneumonia. Will treat with intravenous Zosyn and vancomycin. Blood cultures have been done. Present on Admission?: Yes (2) Metabolic encephalopathy: Treat underlying infectious process. Discontinue all GUEST SERVICE REPRESENTATIVE affecting medications including Bactrim, narcotics, mirtazapine, Nuplazid, gabapentin. P rovide supportive care Present on Admission?: Yes (3) Acute kidney injury superimposed on chronic kidney disease: Administer intravenous fluids. Monitor urine output. Serial lab studies Present on Admission?: Yes (4) UTI (urinary tract infection), bacterial: E. coli recently isolated. Should be sensitive to Zosyn therapy. Bactrim is discontinued Present on Admission?: Yes (5) Essential hypertension: Continue amlodipine and metoprolol. Hold losartan due to acute kidney injury Present on Admission?: Yes (6) Seizure disorder: Check Keppra and Dilantin levels. Continue current medications (7) Parkinson disease: Treated with Sinemet. Supportive care (8) Diabetes mellitus: Treated with low-dose Levemir at bedtime. Sliding scale coverage. ADA diet (9) DVT prophylaxis: Lovenox subcu (10) DNR (do not resuscitate): Per POA request History of Present Illness Chief Complaint: Altered mental status, recent vomiting with coughing Primary Care Provider: Minnie Campos 83-year-old female from a local assisted with a history of seizure disorder, Parkinson's disease, CHF, chronic kidney disease, CVA, hypertension. She is currently being treated with Bactrim for an E. coli UTI. She was hospitalized about 1 month ago with pneumonia and UTI. Her daughter states that she had some nausea and vomiting several days ago and this was associated with coughing and she may have aspirated. Her mental status change abruptly today an d she came to the ED for evaluation. Chest x-ray reveals left lower lobe pneumonia. She is febrile with leukocytosis and acute kidney injury with creatinine 1.4. Lactic acid level is pending. This may be aspiration pneumonia or healthcare associated pneumonia. Bactrim will be discontinued due to possible GUEST SERVICE REPRESENTATIVE contributing side effects. All GUEST SERVICE REPRESENTATIVE affecting medications will be discontinued including narcotics, mirtazapine, Nuplazid, gabapentin. She is a DNR status. Zosyn and vancomycin have been ordered. Blood cultures have been done. She is admitted for further evaluation and treatment. Allergies Allergy/AdvReac Type Severity Reaction Status Date / Time No Known Allergies Allergy Verified 09/02/18 15:41 Home Medications Home Medications Medication Instructions Recorded Confirmed Type Levemir U-100 Insulin 2 unit SUBCUT QPM 11/16/17 09/02/18 History Renal Caps 1 cap PO DAILY 11/16/17 09/02/18 History Systane Ultra 1 drp OPB TID 11/16/17 09/02/18 History acetaminophen 650 mg PO Q8H PRN 11/16/17 09/02/18 History alum-mag hydroxide-simeth [Antacid 30 ml PO Q4H PRN 11/16/17 09/02/18 History Liquid] bisacodyl [Dulcolax (bisacodyl)] 10 mg NE DIRECTED PRN 11/16/17 09/02/18 History carbidopa-levodopa 1.5 tab PO QID 11/16/17 09/02/18 History clopidogrel 75 mg PO DAILY 11/16/17 09/02/18 History docusate sodium 200 mg PO DAILY 11/16/17 09/02/18 History folic acid 0.4 mg PO DAILY 11/16/17 09/02/18 History furosemide 20 mg PO DAILY 11/16/17 09/02/18 History insulin lispro [Humalog U-100 1 sliding scale dose SUBCUT UD PRN 11/16/17 09/02/18 History Insulin] ketotifen fumarate 1 drp OPB Q12H 11/16/17 09/02/18 History levetiracetam 500 mg PO BID 11/16/17 09/02/18 History losartan 25 mg PO DAILY 11/16/17 09/02/18 History losartan 50 mg PO DAILY 11/16/17 09/02/18 History magnesium hydroxide [Milk of 30 ml PO DIRECTED PRN 11/16/17 09/02/18 History Magnesia] mirtazapine 15 mg PO HS 11/16/17 09/02/18 History sodium chloride 1 drp OPB BID 11/16/17 09/02/18 History Nuplazid 34 mg PO QAM 07/23/18 09/02/18 History acetaminophen [Tylenol] 650 mg PO QPM 07/23/18 09/02/18 History amlodipine [Norvasc] 5 mg PO QAM #30 tab 07/29/18 09/02/18 Rx hydrocodone-acetaminophen 2 tab PO BID #120 tab 07/29/18 09/02/18 Rx polyethylene glycol 3350 [Miralax] 17 gm PO DAILY #30 ea 07/29/18 09/02/18 Rx cholecalciferol (vitamin D3) 5,000 unit PO DAILY 09/02/18 09/02/18 History [Vitamin D3] gabapentin 100 mg PO DAILY 09/02/18 09/02/18 History methenamine hippurate 1 g PO DAILY 09/02/18 09/02/18 History metoprolol succinate 100 mg PO DAILY 09/02/18 09/02/18 History omeprazole 20 mg PO DAILY 09/02/18 09/02/18 History ondansetron HCl 4 mg PO Q6H PRN 09/02/18 09/02/18 History phenytoin sodium extended 100 mg PO BID 09/02/18 09/02/18 History potassium chloride 20 meq PO DAILY 09/02/18 09/02/18 History sodium phosphates [Fleet Enema] 0 ml NE DIRECTED PRN 09/02/18 09/02/18 History sulfamethoxazole-trimethoprim 1 tab PO BID 09/02/18 09/02/18 History Past Med/Surg History Social History Preferred Language: [place] Communication Ability: Effective Beliefs That Will Affect Care: None Current Living Situation: [facility] Feels Safe at Home: Yes Smoking Status: Never smoker Hx Alcohol Use: No Hx Substance Use: No Review of Systems Review of Systems: Unobtainable due to cognitive status Physical Exam Physical Exam: General-patient is talking nonsensically and is mildly lethargic. She is disoriented. HEENT-head atraumatic and normocephalic, TMs intact bilaterally, pupils equal and reactive to light, extraocular muscles intact Neck-no lymphadenopathy or thyromegaly, trachea midline Chest-scattered rhonchi. No wheezing. No dullness to percussion Cardiac-regular rate and rhythm, normal S1 and S2 Abdomen-normal bowel sounds, nontender, no hepatosplenomegaly Extremities-no cyanosis, clubbing, or edema Neuro-patient is moving all extremities and speaking nonsensically. No apparent focal motor deficits Results & Data Vital Signs (Past 12 Hours) Vital Signs Temp Pulse Resp BP Pulse Ox 09/02/18 16:31 70 13 97 09/02/18 16:30 73 15 183/68 H 97 09/02/18 16:17 75 15 196/77 H 98 09/02/18 16:00 72 19 161/76 H 98 09/02/18 15:46 75 14 157/67 H 97 09/02/18 15:33 74 10 L 99 09/02/18 15:30 75 12 171/58 H 98 09/02/18 15:29 37.6 C H 74 20 161/54 H 98 Laboratory Results 09/02/18 16:10 09/02/18 16:10 PG Care Time/CCT Total # of Minutes Spent Total Time Spent with Patient: Total time spent is greater than 50% in coordination of care (as documented) at patient's floor/unit and/or counseling patient: (1) Pneumonia Laterality: right Lung location: unspecified part of lung Pneumonia type: due to unspecified organism Qualified Code(s): J18.9 - Pneumonia, unspecified organism (2) Diabetes mellitus Diabetes mellitus type: type 2 Diabetes mellitus long term care pharmacist insulin use: with prison use Diabetes mellitus complication status: without complication Qualified Code(s): E11.9 - Type 2 diabetes mellitus without complications; Z79.4 - group home (current) use of insulin
[2018-09-02] MEDS ORDERED: MAGNESIUM HYDROXIDE SUSP 30 ML UDC PO PRN (19:55)
[2018-09-02] MEDS ORDERED: ONDANSETRON INJ 2 MG/ML 2 ML VIAL IV PRN (19:55)
[2018-09-02] MEDS ORDERED: ALUMINUM/MAGNESIUM/SIMETH (MAALOX MAX) 30 ML UDC PO PRN (19:55)
[2018-09-02] MEDS ORDERED: VANCOMYCIN HCL 1,000 MG in SODIUM CHLORIDE 0.9% 250 ML IV SCH (19:55)
[2018-09-02] MEDS ORDERED: VANCOMYCIN CONSULT ACTIVE PRN (19:55)
[2018-09-02] MEDS ORDERED: SOD PHOSPHATE/SOD BIPHOSPHATE ENEMA 132 ML BTL PR PRN (19:55)
[2018-09-02] MEDS ORDERED: VANCOMYCIN HCL 1,500 MG in SODIUM CHLORIDE 0.9% 500 ML IV SCH (20:30)
[2018-09-02] MEDS: SODIUM CHLORIDE 0.9% 1000ML 1,000 ML IV SCH (20:32)
[2018-09-02] MEDS ORDERED: INSULIN DETEMIR FLEXPEN/FLEX TOUCH 100 UNITS/ML 3ML SQ SCH (21:00)
[2018-09-02 21:22] LABS: INR 1.1 (0.9-1.1); Prothrombin Time 10.9 Seconds (9.0-12.0)
[2018-09-02 21:25] LABS: Appearance Urine Turbid (Clear); Bacteria Urine Automated Negative (Negative); Bilirubin Urine Negative (Negative); Blood Urine Trace (Negative); Color Urine Yellow; Epithelial Cell Urine Auto >30 /lpf (0-5); Glucose Urine UA Negative (Negative); Ketones Urine Negative (Negative); Leukocyte Esterase Urine 3+ (Negative); Nitrite Urine Negative (Negative); Protein Urine Negative (Negative); RBC Urine Automated 0-4 /hpf (0-4); Specific Gravity Urine 1.018 (1.000-1.030); Urobilinogen Urine Negative (Negative); WBC Urine Automated >30 /hpf (0-5); pH Urine 5.5 (4.5-7.5)
[2018-09-02] MEDS: INSULIN ASPART 100 UNITS/ML 3 ML PEN SC SCH (21:53)
[2018-09-02] MEDS: PHENYTOIN SODIUM ER 100 MG CAP PO SCH (21:55)
[2018-09-02] MEDS: levETIRAcetam 500 MG TAB PO SCH (21:56)
[2018-09-02] MEDS: SODIUM CHLORIDE 5% OP SOLN 15 ML BTL OPB SCH (21:57)
[2018-09-02] MEDS: CARBIDOPA/LEVODOPA 25/100MG TAB PO SCH (21:58)
[2018-09-02] MEDS: ENOXAPARIN INJ 30 MG/0.3 ML SYR SQ SCH (22:04)
[2018-09-02] MEDS: ARTIFICIAL TEARS OPB SCH (22:05)
[2018-09-02] MEDS: ACETAMINOPHEN 325 MG TAB PO PRN (22:06)
[2018-09-02] MEDS: [UNRECOGNIZED DRUG - REMARK] SCH (23:51)
[2018-09-02] MEDS: PIPERACILLIN/TAZOBACTAM 3.375 GM in DEXTROSE 5% 100 ML IV SCH (23:52)
[2018-09-03 06:10] LABS: Basophils # (auto) 0.04 K/uL (0-0.2); Basophils % (auto) 0.5 %; Eosinophils % (auto) 4.7 %; Hematocrit (blood only) 34.7 % (37-47); Hemoglobin 11.4 g/dL (12.0-16.0); Immature Granulocytes # (auto) 0.02 K/uL (0.00-0.02); Immature Granulocytes % (auto) 0.2 %; Lymphocytes # (auto) 1.59 K/uL (1.2-3.4); Lymphocytes % (auto) 18.7 %; Mean Corpuscular Hgb Conc 32.9 g/dL (32-36); Mean Corpuscular Volume 96.9 fL (80-100); Mean Platelet Volume 9.8 fL (7.4-10.4); Monocytes # (auto) 0.82 K/uL (0.11-0.59); Monocytes % (auto) 9.7 %; Neutrophils # (auto) 5.62 K/uL (1.4-6.5); Neutrophils % (auto) 66.2 %; Platelet Count 252 K/uL (130-400); RDW Coefficient of Variation 13.4 % (11.5-14.5); RDW Standard Deviation 47.3 fL (36.4-46.3); Red Blood Count 3.58 M/uL (4.2-5.4); White Blood Count 8.49 K/uL (4.8-10.8)
[2018-09-03 06:51] LABS: Calcium 8.6 mg/dl (8.5-10.1); Creatinine Clr Calc Pharmacy 33.7 ml/min; Est GFR (Non-African American) 37.1; Potassium 3.9 mmol/L (3.5-5.1)
[2018-09-03] MEDS: DOCUSATE SODIUM 100 MG CAP PO SCH (07:51)
[2018-09-03] MEDS: PANTOprazole 40 MG TAB PO SCH (07:52)
[2018-09-03] MEDS: AMLODIPINE BESYLATE 5 MG TAB PO SCH (07:52)
[2018-09-03] MEDS: NEPHROCAPS PO SCH (07:53)
[2018-09-03] MEDS: LOSARTAN POTASSIUM 50 MG TAB PO SCH (07:53)
[2018-09-03] MEDS: CHOLECALCIFEROL 1,000 UNITS TAB PO SCH (07:53)
[2018-09-03] MEDS: levETIRAcetam 500 MG TAB PO SCH ×2 (07:54→20:50)
[2018-09-03] MEDS: CARBIDOPA/LEVODOPA 25/100MG TAB PO SCH ×4 (07:55→20:49)
[2018-09-03] MEDS: FOLIC ACID 400 MCG TAB PO SCH (08:01)
[2018-09-03] MEDS: LOSARTAN POTASSIUM 25 MG TAB PO SCH (08:01)
[2018-09-03] MEDS: CLOPIDOGREL BISULFATE 75 MG TAB PO SCH (08:01)
[2018-09-03] MEDS: METHENAMINE HIPPURATE 1 GM TAB PO SCH (08:02)
[2018-09-03] MEDS: POTASSIUM CHLORIDE 20 MEQ TABCR PO SCH (08:02)
[2018-09-03] MEDS: METOPROLOL SUCC 50MG EXT REL TAB PO SCH (08:02)
[2018-09-03] MEDS: SODIUM CHLORIDE 5% OP SOLN 15 ML BTL OPB SCH ×2 (08:03→20:50)
[2018-09-03] MEDS: POLYETHYLENE (MIRALAX) 17 GM PACK PO SCH ×2 (08:04→09:42)
[2018-09-03] MEDS: PIPERACILLIN/TAZOBACTAM 3.375 GM in DEXTROSE 5% 100 ML IV SCH ×3 (08:16→23:48)
[2018-09-03] MEDS: ACETAMINOPHEN 325 MG TAB PO PRN (09:30)
[2018-09-03] MEDS: INSULIN ASPART 100 UNITS/ML 3 ML PEN SC SCH ×4 (09:37→20:49)
[2018-09-03] MEDS: [UNRECOGNIZED DRUG - REMARK] SCH ×3 (09:39→23:48)
[2018-09-03] MEDS: ARTIFICIAL TEARS OPB SCH ×3 (09:41→20:51)
[2018-09-03] MEDS: SODIUM CHLORIDE 0.9% 1000ML 1,000 ML IV SCH (11:16)
[2018-09-03] MEDS: PHENYTOIN SODIUM ER 100 MG CAP PO SCH ×2 (11:17→20:49)
[2018-09-03] MEDS ORDERED: HydrALAZINE HCL 20 MG/ML VIAL IV PRN (13:30)
--- NOTE | 2018-09-03 13:40 | Hospitalist Progress Note ---
Date of Service September 03, 2018 Assessment & Plan (1) Pneumonia: CXR on admission showed LLL infiltrate. Had episode of possible aspiration with some nausea/vomiting about 2-3 days prior to admission. Per daughter, otherwise eats & swallows without any concern. Seen by OFFAL BALER last admission witho ut concerns. - Continue Zosyn - Could narrow abx once urine culture returns (to be sure to cover both urine and lung infection). - Recommend repeat CXR in a few weeks after resolution of pneumonia (2) UTI (urinary tract infection), bacterial: Daughter is adamant that patient only becomes lethargic and confused with UTIs, not with dehydration, pneumonia, GI bugs, or any other cause. Was recently tested for UTI for these issues and was on Bactrim. Culture grew ESBL E. coli that time, and she was on Bactrim which it was sensitive to. Nonetheless, the daughter is sure this is a new UTI. UA on 09/02 showed WBCs, leuk esterase, but also showed epithelial cells and no bacteria. - Follow urine culture - Only has pinpoint growth so far - Covering with Zosyn for her pneumonia (3) Metabolic encephalopathy: Possibly due to infection vs. dehydration. - Treating underlying infectious process. - Discontinued all MARKET ASSET PROTECTION MANAGER affecting medications including Bactrim, narcotics, mirtazapine, Nuplazid, gabapentin. (4) Acute kidney injury superimposed on chronic kidney disease: Baseline Cr is ~1.0-1.2. On admission, Cr was 1.45. Possibly due to Bactrim (which can raise serum Cr without actually affecting kidney function) vs. dehydration if she had reduced PO intake while confused. - Will stop IV fluids for history of CHF - Patient up >1L from admission and up several kgs. - Cr mildly improved to 1.35 - Trend (5) Essential hypertension: BP has been up to 200/70 this admission. - Continue amlodipine, losartan, and metoprolol. - Initially held losartan due to acute kidney injury, but restarted - Hydralazine PRN (6) Seizure disorder: Dilantin level was 8.6 on admission which is low, but is actually slightly higher than prior checks. - Continue current medications (7) Parkinson disease: Treated with Sinemet. - Continue (8) Diabetes mellitus: Blood sugars well-controlled while inpatient so far. - Continue Levemir at bedtime. - Sliding scale coverage. - ADA diet (9) History of stroke: Continue Plavix (10) DVT prophylaxis: Lovenox subcu Subjective Arousable and easily awaking. Per daughter, improving. Review of Systems Review of Systems: All systems reviewed & are unremarkable except as noted in HPI & below Physical Exam Constitutional: WD/WN, vitals as above Eyes: EOM intact bilaterally; no conjunctival abnormality ENMT: external ear and nose normal, oropharynx normal Neck: trachea midline, no thyromegaly normal visual inspection Respiratory: normal respiratory effort, lungs clear to auscultation no respiratory distress Cardiovascular: RRR, no murmur, no edema Gastrointestinal (Abdomen): Inspection/Auscultation: abdomen normal to inspection; abdomen not distended Musculoskeletal: no cyanosis or clubbing, extremities motor strength 5/5 Skin: no rashes, warm and dry Neurologic: moves all extremities and awake Psychiatric: Orientation: alert, oriented to person and cooperative Results & Data Vital Signs (Past 12 Hours) Vital Signs Temp Pulse Pulse Resp BP BP Pulse Ox 09/03/18 10:32 36.7 C 65 18 184/73 H 92 09/03/18 10:08 61 09/03/18 08:15 170/70 H 09/03/18 07:18 37.2 C 66 20 200/67 H 97 09/03/18 04:30 161/71 H 09/03/18 03:51 35.9 C L 60 22 178/82 H 94 PG Care Time/CCT Total # of Minutes Spent Total Time Spent with Patient: Total time spent is greater than 50% in coordination of care (as documented) at patient's floor/unit and/or counseling patient: (1) Pneumonia Laterality: right Lung location: unspecified part of lung Pneumonia type: due to unspecified organism Qualified Code(s): J18.9 - Pneumonia, unspecified organism (2) Diabetes mellitus Diabetes mellitus type: type 2 Diabetes mellitus terminal worker insulin use: with half-way use Diabetes mellitus complication status: without complication Qualified Code(s): E11.9 - Type 2 diabetes mellitus without complications; Z79.4 - jail (current) use of insulin
[2018-09-03] MEDS: INSULIN DETEMIR FLEXPEN/FLEX TOUCH 100 UNITS/ML 3ML SQ SCH (20:51)
[2018-09-03] MEDS: ENOXAPARIN INJ 30 MG/0.3 ML SYR SQ SCH (20:53)
[2018-09-04 06:02] LABS: Basophils # (auto) 0.02 K/uL (0-0.2); Basophils % (auto) 0.3 %; Eosinophils # (auto) 0.44 K/uL (0-0.5); Eosinophils % (auto) 6.3 %; Hematocrit (blood only) 33.1 % (37-47); Hemoglobin 11.3 g/dL (12.0-16.0); Immature Granulocytes # (auto) 0.02 K/uL (0.00-0.02); Immature Granulocytes % (auto) 0.3 %; Lymphocytes # (auto) 1.66 K/uL (1.2-3.4); Lymphocytes % (auto) 23.7 %; Mean Corpuscular Hgb Conc 34.1 g/dL (32-36); Mean Corpuscular Volume 95.7 fL (80-100); Mean Platelet Volume 9.8 fL (7.4-10.4); Monocytes # (auto) 0.77 K/uL (0.11-0.59); Neutrophils % (auto) 58.4 %; Platelet Count 237 K/uL (130-400); RDW Coefficient of Variation 13.2 % (11.5-14.5); RDW Standard Deviation 45.4 fL (36.4-46.3); Red Blood Count 3.46 M/uL (4.2-5.4); White Blood Count 7.01 K/uL (4.8-10.8)
[2018-09-04 06:33] LABS: BUN Creatinine Ratio 16.9 (10-20); Calcium 8.9 mg/dl (8.5-10.1); Creatinine Clr Calc Pharmacy 48.2 ml/min; Est GFR (African American) 65.9; Est GFR (Non-African American) 56.9; Potassium 3.7 mmol/L (3.5-5.1)
[2018-09-04] MEDS: [UNRECOGNIZED DRUG - REMARK] SCH ×3 (07:02→23:13)
[2018-09-04] MEDS: PIPERACILLIN/TAZOBACTAM 3.375 GM in DEXTROSE 5% 100 ML IV SCH ×3 (07:12→23:12)
[2018-09-04] MEDS: LOSARTAN POTASSIUM 25 MG TAB PO SCH (07:56)
[2018-09-04] MEDS: PHENYTOIN SODIUM ER 100 MG CAP PO SCH ×2 (07:57→22:02)
[2018-09-04] MEDS: AMLODIPINE BESYLATE 5 MG TAB PO SCH (07:57)
[2018-09-04] MEDS: CHOLECALCIFEROL 1,000 UNITS TAB PO SCH (07:58)
[2018-09-04] MEDS: CLOPIDOGREL BISULFATE 75 MG TAB PO SCH (07:59)
[2018-09-04] MEDS: DOCUSATE SODIUM 100 MG CAP PO SCH (08:00)
[2018-09-04] MEDS: NEPHROCAPS PO SCH (08:00)
[2018-09-04] MEDS: LOSARTAN POTASSIUM 50 MG TAB PO SCH (08:01)
[2018-09-04] MEDS: METOPROLOL SUCC 50MG EXT REL TAB PO SCH (08:01)
[2018-09-04] MEDS: PANTOprazole 40 MG TAB PO SCH (08:01)
[2018-09-04] MEDS: levETIRAcetam 500 MG TAB PO SCH ×2 (08:02→21:58)
[2018-09-04] MEDS: POTASSIUM CHLORIDE 20 MEQ TABCR PO SCH (08:02)
[2018-09-04] MEDS: METHENAMINE HIPPURATE 1 GM TAB PO SCH (08:02)
[2018-09-04] MEDS: FOLIC ACID 400 MCG TAB PO SCH (08:02)
[2018-09-04] MEDS: CARBIDOPA/LEVODOPA 25/100MG TAB PO SCH ×4 (08:03→21:59)
[2018-09-04] MEDS: POLYETHYLENE (MIRALAX) 17 GM PACK PO SCH (08:04)
[2018-09-04] MEDS: INSULIN ASPART 100 UNITS/ML 3 ML PEN SC SCH ×4 (08:04→22:01)
[2018-09-04] MEDS: ARTIFICIAL TEARS OPB SCH ×3 (08:05→22:00)
[2018-09-04] MEDS: SODIUM CHLORIDE 5% OP SOLN 15 ML BTL OPB SCH ×2 (08:05→21:59)
[2018-09-04] MEDS: LACTOBACILLUS ACIDOPHILUS (FLORANEX) TAB PO SCH ×2 (11:59→17:11)
--- NOTE | 2018-09-04 19:31 | Hospitalist Progress Note ---
Date of Service September 04, 2018 Assessment & Plan (1) Pneumonia: CXR with LLL infiltrate. Questionable aspiration event prior to admission. Also lives in SNF and was hospitalized within last 90 days. Thus, continue Zosyn. MRSA CUSTOMS IMPORT SPECIALIST screen negative thus defer on coverage for such. Day #3 of 7 of IV antibiotic therapy. (2) UTI (urinary tract infection), bacterial: h/o ESBL e. coli UTIs. appears colonized with e.coli. awaiting culture. zosyn for now. (3) Metabolic encephalopathy: likely due to LLL pneumonia +/- UTI supportive care (4) Acute kidney injury superimposed on chronic kidney disease: Peak Cr 1.4 now 0.9 BMP am CKD stage 3 at baseline with typical CrCl <60 (5) Essential hypertension: labile, poorly controlled. Continue amlodipine, losartan, and metoprolol. if she continues to be high then adjust meds. (6) Seizure disorder: no seizures Continue current medications (7) Parkinson disease: Continue sinemet Has dementia likely due to her PD (8) Diabetes mellitus: Continue Levemir at bedtime and novolog sliding scale coverage. Controlled. (9) History of stroke: noted Continue Plavix for secondary prevention (10) DVT prophylaxis: Lovenox subcu 30mg daily continue telemetry 1 more day and if stable then Tx med/surg Subjective tele stable overnight. pleasantly confused during the visit. alludes to her daughter having "Some sort of procedure". thinks it is 192. poor appetite per nursing flowsheets. Review of Systems Review of Systems: Unobtainable due to cognitive status Physical Exam Constitutional: average body habitus and + altered mental status; no acute distress ENMT: external ear and nose normal, oropharynx normal Respiratory: no respiratory distress Auscultation: + diminished lung sounds (bases); no crackles and no wheezes Cardiovascular: Rate/Rhythm: regular rate and regular rhythm Heart Sounds: normal S1 and normal S2; no murmur Vessels: posterior tibial pulses present and dorsalis pedis pulses present; no JVD Gastrointestinal (Abdomen): normal bowel sounds, soft, nontender, no hepatosplenomegaly Psychiatric: Orientation: alert, oriented to person and oriented to place; + not oriented to time Results & Data Vital Signs (Past 12 Hours) Vital Signs Temp Pulse Pulse Resp BP BP Pulse Ox 09/04/18 15:43 36.9 C 62 18 190/73 H 92 09/04/18 15:27 60 09/04/18 10:33 36.6 C 59 L 19 124/63 92 09/04/18 08:17 67 152/71 H 09/04/18 08:00 63 Laboratory Results Laboratory Results - last 24 hr 09/03/18 09/04/18 09/04/18 20:03 05:27 05:27 WBC 7.01 RBC 3.46 L Hgb 11.3 L Hct 33.1 L MCV 95.7 MCH 32.7 MCHC 34.1 RDW Std Deviation 45.4 RDW Coeff of Enrrique 13.2 Plt Count 237 MPV 9.8 Immature Gran % (Auto) 0.3 Neut % (Auto) 58.4 Lymph % (Auto) 23.7 [place] % (Auto) 11.0 Eos % (Auto) 6.3 Baso % (Auto) 0.3 Immature Gran # (Auto) 0.02 Neut # (Auto) 4.10 Lymph # (Auto) 1.66 [place] # (Auto) 0.77 H Eos # (Auto) 0.44 Baso # (Auto) 0.02 Sodium 142 Potassium 3.7 Chloride 111 H Carbon Dioxide 23 Anion Gap 9.0 BUN 16 Creatinine 0.94 D Est Cr Clr Drug Dosing 48.2 Est GFR ( Amer) 65.9 Est GFR (Non-Af Amer) 56.9 BUN/Creatinine Ratio 16.9 Glucose 80 POC Glucose 143 H Calcium 8.9 09/04/18 09/04/18 09/04/18 07:38 11:32 16:24 WBC RBC Hgb Hct MCV MCH MCHC RDW Std Deviation RDW Coeff of Enrrique Plt Count MPV Immature Gran % (Auto) Neut % (Auto) Lymph % (Auto) [place] % (Auto) Eos % (Auto) Baso % (Auto) Immature Gran # (Auto) Neut # (Auto) Lymph # (Auto) [place] # (Auto) Eos # (Auto) Baso # (Auto) Sodium Potassium Chloride Carbon Dioxide Anion Gap BUN Creatinine Est Cr Clr Drug Dosing Est GFR ( Amer) Est GFR (Non-Af Amer) BUN/Creatinine Ratio Glucose POC Glucose 90 123 H 104 H Calcium PG Care Time/CCT Total # of Minutes Spent Total Time Spent with Patient: Total time spent is greater than 50% in coordination of care (as documented) at patient's floor/unit and/or counseling patient: (1) Diabetes mellitus Diabetes mellitus complication status: without complication Diabetes mellitus intermediate teacher insulin use: with intermediate teacher use Diabetes mellitus type: type 2 Qualified Code(s): E11.9 - Type 2 diabetes mellitus without complications; Z79.4 - residential (current) use of insulin (2) Pneumonia Laterality: right Lung location: unspecified part of lung Pneumonia type: due to unspecified organism Qualified Code(s): J18.9 - Pneumonia, unspecified organism
[2018-09-04] MEDS: INSULIN DETEMIR FLEXPEN/FLEX TOUCH 100 UNITS/ML 3ML SQ SCH (22:00)
[2018-09-04] MEDS: ENOXAPARIN INJ 30 MG/0.3 ML SYR SQ SCH (22:01)
[2018-09-05 06:15] LABS: Basophils # (auto) 0.04 K/uL (0-0.2); Basophils % (auto) 0.6 %; Eosinophils # (auto) 0.27 K/uL (0-0.5); Eosinophils % (auto) 3.8 %; Hematocrit (blood only) 34.2 % (37-47); Hemoglobin 11.6 g/dL (12.0-16.0); Immature Granulocytes # (auto) 0.02 K/uL (0.00-0.02); Immature Granulocytes % (auto) 0.3 %; Lymphocytes # (auto) 1.79 K/uL (1.2-3.4); Mean Corpuscular Hgb Conc 33.9 g/dL (32-36); Mean Corpuscular Volume 94.7 fL (80-100); Mean Platelet Volume 9.4 fL (7.4-10.4); Monocytes % (auto) 9.8 %; Neutrophils # (auto) 4.35 K/uL (1.4-6.5); Neutrophils % (auto) 60.5 %; Platelet Count 262 K/uL (130-400); Red Blood Count 3.61 M/uL (4.2-5.4); White Blood Count 7.17 K/uL (4.8-10.8)
[2018-09-05 06:44] LABS: BUN Creatinine Ratio 17.3 (10-20); Calcium 9.3 mg/dl (8.5-10.1); Creatinine Clr Calc Pharmacy 45.4 ml/min; Est GFR (African American) 61.9; Est GFR (Non-African American) 53.4; Potassium 3.8 mmol/L (3.5-5.1)
[2018-09-05] MEDS: [UNRECOGNIZED DRUG - REMARK] SCH ×3 (07:53→23:37)
[2018-09-05] MEDS: PIPERACILLIN/TAZOBACTAM 3.375 GM in DEXTROSE 5% 100 ML IV SCH (08:07)
[2018-09-05] MEDS: CARBIDOPA/LEVODOPA 25/100MG TAB PO SCH ×4 (08:08→21:30)
[2018-09-05] MEDS: levETIRAcetam 500 MG TAB PO SCH ×2 (08:09→19:51)
[2018-09-05] MEDS: CLOPIDOGREL BISULFATE 75 MG TAB PO SCH (08:09)
[2018-09-05] MEDS: AMLODIPINE BESYLATE 5 MG TAB PO SCH ×2 (08:09→19:48)
[2018-09-05] MEDS: LOSARTAN POTASSIUM 25 MG TAB PO SCH (08:10)
[2018-09-05] MEDS: PHENYTOIN SODIUM ER 100 MG CAP PO SCH ×2 (08:10→19:50)
[2018-09-05] MEDS: SODIUM CHLORIDE 5% OP SOLN 15 ML BTL OPB SCH ×2 (08:11→19:51)
[2018-09-05] MEDS: METOPROLOL SUCC 50MG EXT REL TAB PO SCH (08:11)
[2018-09-05] MEDS: LOSARTAN POTASSIUM 50 MG TAB PO SCH (08:12)
[2018-09-05] MEDS: INSULIN ASPART 100 UNITS/ML 3 ML PEN SC SCH ×4 (08:37→21:27)
[2018-09-05] MEDS: CHOLECALCIFEROL 1,000 UNITS TAB PO SCH (09:17)
[2018-09-05] MEDS: DOCUSATE SODIUM 100 MG CAP PO SCH (09:18)
[2018-09-05] MEDS: METHENAMINE HIPPURATE 1 GM TAB PO SCH (09:18)
[2018-09-05] MEDS: NEPHROCAPS PO SCH (09:18)
[2018-09-05] MEDS: LACTOBACILLUS ACIDOPHILUS (FLORANEX) TAB PO SCH ×3 (09:18→19:47)
[2018-09-05] MEDS: POTASSIUM CHLORIDE 20 MEQ TABCR PO SCH (09:18)
[2018-09-05] MEDS: PANTOprazole 40 MG TAB PO SCH (09:18)
[2018-09-05] MEDS: FOLIC ACID 400 MCG TAB PO SCH (09:18)
[2018-09-05] MEDS: POLYETHYLENE (MIRALAX) 17 GM PACK PO SCH (09:18)
[2018-09-05] MEDS: ARTIFICIAL TEARS OPB SCH ×3 (09:21→19:52)
[2018-09-05] MEDS: ERTAPENEM SODIUM 1,000 MG in SODIUM CHLORIDE 0.9% 50 ML IV SCH (12:44)
--- NOTE | 2018-09-05 21:08 | Hospitalist Progress Note ---
Date of Service September 05, 2018 Assessment & Plan (1) Pneumonia: CXR with LLL infiltrate. Questionable aspiration event prior to admission. Also lives in SNF and was hospitalized within last 90 days. Day #4 of 7 of IV antibiotic therapy. Switching from zosyn to ertapenem today. Continue total 7 days of Rx. Eating is improved suggesting clinical improvement. (2) UTI (urinary tract infection), bacterial: h/o ESBL e. coli UTIs. appears colonized with e.coli. final urine cx indeed with ESBL e.coli. colony count from 09/02 was 30,000 CFU; 08/29/18 colony count was >100,000. she had been receiving bactrim at [facility] so it appears the e.coli was partially treated. VERY difficult to know if just colonization or true pathogen. since we are treating pneumonia any way will continue abx but change to ertapenem; this will cover the ESBL e.coli better than zosyn. saw Dr Trevino, urology, in early August for recurrent UTIs. placed on methenamine for UTI proph - continue such. (3) Metabolic encephalopathy: likely due to LLL pneumonia +/- UTI supportive care seems modestly better during stay in July, even after 7 day course of IV zosyn, she had waxing/waning mental status the ENTIRE stay (4) Acute kidney injury superimposed on chronic kidney disease: Peak Cr 1.4 now 0.9 [place] resolved CKD stage 3 at baseline with typical CrCl <60 (5) Essential hypertension: labile, poorly controlled. Continue amlodipine, losartan, and metoprolol. will increase norvasc to 5mg BID follow (6) Seizure disorder: no seizures Continue current medications (7) Parkinson disease: Continue sinemet Has dementia likely due to her PD (8) Diabetes mellitus: Continue Levemir at bedtime and novolog sliding scale coverage. Controlled. (9) History of stroke: noted Continue Plavix for secondary prevention (10) DVT prophylaxis: Lovenox subcu 30mg daily d/c tele move to med/surg needs room with plenty of light, quiet, etc asked charge nurse for such spoke with daughter by phone - gave update, answered questions Subjective telemetry normal overnight she was quite confused, shifting from one subject to another she alluded to her daughter being in the room today she caught herself at least twice stating "I'm confused" ate 75% of breakfast no issues per staff denied any specific location of pain Review of Systems Review of Systems: Unobtainable due to cognitive status Physical Exam Constitutional: average body habitus and + altered mental status; no acute distress ENMT: external ear and nose normal, oropharynx normal Respiratory: no respiratory distress Auscultation: + diminished lung sounds (bases); no crackles and no wheezes Cardiovascular: Rate/Rhythm: regular rate and regular rhythm Heart Sounds: normal S1 and normal S2; no murmur Vessels: posterior tibial pulses present and dorsalis pedis pulses present; no JVD Gastrointestinal (Abdomen): normal bowel sounds, soft, nontender, no hepatosplenomegaly Neurologic: Motor/Sensory: + tremor (baseline) Psychiatric: Orientation: alert, oriented to person and oriented to place; + not oriented to time Results & Data Vital Signs (Past 12 Hours) Vital Signs Temp Pulse Resp BP BP Pulse Ox 09/05/18 19:50 184/85 H 09/05/18 16:20 36.4 C L 60 22 193/84 H 199/74 H 98 09/05/18 15:18 36.5 C 60 21 159/76 H 95 09/05/18 10:28 36.5 C 55 L 18 122/68 96 Laboratory Results Laboratory Results - last 24 hr 09/04/18 09/05/18 09/05/18 21:57 05:41 05:41 WBC 7.17 RBC 3.61 L Hgb 11.6 L Hct 34.2 L MCV 94.7 MCH 32.1 MCHC 33.9 RDW Std Deviation 45.0 RDW Coeff of Enrrique 13.0 Plt Count 262 MPV 9.4 Immature Gran % (Auto) 0.3 Neut % (Auto) 60.5 Lymph % (Auto) 25.0 [place] % (Auto) 9.8 Eos % (Auto) 3.8 Baso % (Auto) 0.6 Immature Gran # (Auto) 0.02 Neut # (Auto) 4.35 Lymph # (Auto) 1.79 [place] # (Auto) 0.70 H Eos # (Auto) 0.27 Baso # (Auto) 0.04 Sodium 140 Potassium 3.8 Chloride 109 H Carbon Dioxide 25 Anion Gap 6.0 BUN 17 Creatinine 0.99 Est Cr Clr Drug Dosing 45.4 Est GFR ( Amer) 61.9 Est GFR (Non-Af Amer) 53.4 BUN/Creatinine Ratio 17.3 Glucose 82 POC Glucose 124 H Calcium 9.3 09/05/18 09/05/18 09/05/18 07:26 11:07 16:46 WBC RBC Hgb Hct MCV MCH MCHC RDW Std Deviation RDW Coeff of Enrrique Plt Count MPV Immature Gran % (Auto) Neut % (Auto) Lymph % (Auto) [place] % (Auto) Eos % (Auto) Baso % (Auto) Immature Gran # (Auto) Neut # (Auto) Lymph # (Auto) [place] # (Auto) Eos # (Auto) Baso # (Auto) Sodium Potassium Chloride Carbon Dioxide Anion Gap BUN Creatinine Est Cr Clr Drug Dosing Est GFR ( Amer) Est GFR (Non-Af Amer) BUN/Creatinine Ratio Glucose POC Glucose 87 149 H 83 Calcium 09/05/18 20:53 WBC RBC Hgb Hct MCV MCH MCHC RDW Std Deviation RDW Coeff of Enrrique Plt Count MPV Immature Gran % (Auto) Neut % (Auto) Lymph % (Auto) [place] % (Auto) Eos % (Auto) Baso % (Auto) Immature Gran # (Auto) Neut # (Auto) Lymph # (Auto) [place] # (Auto) Eos # (Auto) Baso # (Auto) Sodium Potassium Chloride Carbon Dioxide Anion Gap BUN Creatinine Est Cr Clr Drug Dosing Est GFR ( Amer) Est GFR (Non-Af Amer) BUN/Creatinine Ratio Glucose POC Glucose 104 H Calcium PG Care Time/CCT Total # of Minutes Spent Total Time Spent with Patient: Total time spent is greater than 50% in coordination of care (as documented) at patient's floor/unit and/or counseling patient: (1) Diabetes mellitus Diabetes mellitus complication status: without complication Diabetes mellitus custodial insulin use: with custodial use Diabetes mellitus type: type 2 Qualified Code(s): E11.9 - Type 2 diabetes mellitus without complications; Z79.4 - terminal carman (current) use of insulin (2) Pneumonia Laterality: right Lung location: unspecified part of lung Pneumonia type: due to unspecified organism Qualified Code(s): J18.9 - Pneumonia, unspecified organism
[2018-09-05] MEDS: ENOXAPARIN INJ 30 MG/0.3 ML SYR SQ SCH (21:24)
[2018-09-05] MEDS: INSULIN DETEMIR FLEXPEN/FLEX TOUCH 100 UNITS/ML 3ML SQ SCH (21:26)
[2018-09-06] MEDS: [UNRECOGNIZED DRUG - REMARK] SCH ×2 (07:15→15:08)
[2018-09-06] MEDS: LACTOBACILLUS ACIDOPHILUS (FLORANEX) TAB PO SCH ×3 (07:53→18:03)
[2018-09-06] MEDS: CLOPIDOGREL BISULFATE 75 MG TAB PO SCH (07:54)
[2018-09-06] MEDS: CHOLECALCIFEROL 1,000 UNITS TAB PO SCH (07:54)
[2018-09-06] MEDS: LOSARTAN POTASSIUM 25 MG TAB PO SCH (07:54)
[2018-09-06] MEDS: PANTOprazole 40 MG TAB PO SCH (07:54)
[2018-09-06] MEDS: METOPROLOL SUCC 50MG EXT REL TAB PO SCH (07:54)
[2018-09-06] MEDS: METHENAMINE HIPPURATE 1 GM TAB PO SCH (07:54)
[2018-09-06] MEDS: DOCUSATE SODIUM 100 MG CAP PO SCH (07:54)
[2018-09-06] MEDS: LOSARTAN POTASSIUM 50 MG TAB PO SCH (07:54)
[2018-09-06] MEDS: AMLODIPINE BESYLATE 5 MG TAB PO SCH ×2 (07:55→20:55)
[2018-09-06] MEDS: POTASSIUM CHLORIDE 20 MEQ TABCR PO SCH (07:55)
[2018-09-06] MEDS: FOLIC ACID 400 MCG TAB PO SCH (07:55)
[2018-09-06] MEDS: CARBIDOPA/LEVODOPA 25/100MG TAB PO SCH ×4 (07:55→20:54)
[2018-09-06] MEDS: PHENYTOIN SODIUM ER 100 MG CAP PO SCH ×2 (07:56→20:54)
[2018-09-06] MEDS: levETIRAcetam 500 MG TAB PO SCH ×2 (07:56→20:56)
[2018-09-06] MEDS: SODIUM CHLORIDE 5% OP SOLN 15 ML BTL OPB SCH ×2 (07:56→20:56)
[2018-09-06] MEDS: NEPHROCAPS PO SCH (07:57)
[2018-09-06] MEDS: ARTIFICIAL TEARS OPB SCH ×3 (07:57→20:57)
[2018-09-06] MEDS: POLYETHYLENE (MIRALAX) 17 GM PACK PO SCH (07:58)
[2018-09-06] MEDS: INSULIN ASPART 100 UNITS/ML 3 ML PEN SC SCH ×4 (08:37→20:58)
[2018-09-06] MEDS: ERTAPENEM SODIUM 1,000 MG in SODIUM CHLORIDE 0.9% 50 ML IV SCH (12:32)
[2018-09-06] MEDS: INSULIN DETEMIR FLEXPEN/FLEX TOUCH 100 UNITS/ML 3ML SQ SCH (20:57)
[2018-09-06] MEDS: ENOXAPARIN INJ 30 MG/0.3 ML SYR SQ SCH (21:02)
--- NOTE | 2018-09-06 21:05 | Hospitalist Progress Note ---
Date of Service September 06, 2018 Assessment & Plan (1) Pneumonia: CXR with LLL infiltrate. Questionable aspiration event prior to admission. Also lives in SNF and was hospitalized within last 90 days. Day #5 of 7 of Abx (had received 2-3 days of zosyn, then changed to ertapenem - day #2 of latter). Continue total 7-10 days of Rx. Eating is improved suggesting clinical improvement. (2) UTI (urinary tract infection), bacterial: h/o ESBL e. coli UTIs. appears colonized with e.coli. final urine cx indeed with ESBL e.coli. colony count from 09/02 was 30,000 CFU; 08/29/18 colony count was >100,000. she had been receiving bactrim at [facility] so it appears the e.coli was partially treated. VERY difficult to know if just colonization or true pathogen. since we are treating pneumonia any way will continue abx but change to ertapenem; this will cover the ESBL e.coli better than zosyn. saw Dr Trevino, urology, in early August for recurrent UTIs. placed on methenamine for UTI proph - continue such. today is day #2 of ertapenem; would recommend 7 full days of once daily IV ertapenem. spoke with SW -- we could finish course of this medication at SNF. (3) Metabolic encephalopathy: likely due to LLL pneumonia +/- UTI supportive care cont to slowly improve during stay in July, even after 7 day course of IV zosyn, she had waxing/waning mental status the ENTIRE stay (4) Acute kidney injury superimposed on chronic kidney disease: Peak Cr 1.4 now 0.9 MADISON resolved CKD stage 3 at baseline with typical CrCl <60 (5) Essential hypertension: labile, poorly controlled - but less spikes than yesterday. Continue amlodipine BID (increased yesterday), losartan, and metoprolol. I suspect her labile BPs are due to autonomic activation from parkinson's disease (6) Seizure disorder: no seizures Continue current medications (7) Parkinson disease: Continue sinemet Has dementia likely due to her PD (8) Diabetes mellitus: Continue Levemir at bedtime and novolog sliding scale coverage. Controlled. (9) History of stroke: noted Continue Plavix for secondary prevention (10) DVT prophylaxis: Lovenox subcu 30mg daily updated daughter by phone she is comfortable with plan to release her mother back to SNF and finish IV ertapenem there hopefully d/c tomorrow Subjective daughter at bedside no issues overnight ate fair breakfast was getting ready to eat chicken salad at lunch pt states "I don't like the food here" she apparently told the daughter she was "ready to leave the hospital" pt denies cp, abd pain, dyspnea daughter reports that mental status is "par for the course" for her mother with an infection Review of Systems Constitutional: no fever Respiratory: no cough Cardiovascular: no chest pain, no orthopnea and no paroxysmal nocturnal dyspnea Gastrointestinal: no nausea Physical Exam Constitutional: average body habitus and + altered mental status; no acute distress sentences more clear today and fluent; asking sensible questions ENMT: external ear and nose normal, oropharynx normal Respiratory: no respiratory distress Auscultation: no crackles and no wheezes Cardiovascular: Rate/Rhythm: regular rate and regular rhythm Heart Sounds: normal S1 and normal S2; no murmur Vessels: posterior tibial pulses present and dorsalis pedis pulses present; no JVD Gastrointestinal (Abdomen): normal bowel sounds, soft, nontender, no hepatosplenomegaly Skin: no rashes, warm and dry Neurologic: Motor/Sensory: + tremor (baseline) Psychiatric: Orientation: alert, oriented to person and oriented to place; + not oriented to time Results & Data Vital Signs (Past 12 Hours) Vital Signs Temp Pulse Resp BP Pulse Ox 09/06/18 15:00 36.3 C L 62 16 110/65 98 09/06/18 10:03 146/68 H Laboratory Results Laboratory Results - last 24 hr 09/02/18 09/06/18 09/06/18 18:42 07:49 11:45 POC Glucose 89 95 Levetiracetam 31.9 09/06/18 09/06/18 17:03 20:10 POC Glucose 97 186 H Levetiracetam PG Care Time/CCT Total # of Minutes Spent Total Time Spent with Patient: Total time spent is greater than 50% in coordination of care (as documented) at patient's floor/unit and/or counseling patient: (1) Diabetes mellitus Diabetes mellitus complication status: without complication Diabetes mellitus termite control representative insulin use: with usp use Diabetes mellitus type: type 2 Qualified Code(s): E11.9 - Type 2 diabetes mellitus without complications; Z79.4 - laborer marine terminal (current) use of insulin (2) Pneumonia Laterality: right Lung location: unspecified part of lung Pneumonia type: due to unspecified organism Qualified Code(s): J18.9 - Pneumonia, unspecified organism
[2018-09-07] MEDS: [UNRECOGNIZED DRUG - REMARK] SCH ×3 (01:03→15:54)
[2018-09-07 07:43] LABS: BUN Creatinine Ratio 18.8 (10-20); Calcium 9.4 mg/dl (8.5-10.1); Creatinine Clr Calc Pharmacy 57.5 ml/min; Est GFR (African American) 82.6; Est GFR (Non-African American) 71.3; Potassium 3.9 mmol/L (3.5-5.1)
[2018-09-07] MEDS: INSULIN ASPART 100 UNITS/ML 3 ML PEN SC SCH ×4 (08:24→21:03)
[2018-09-07] MEDS: LACTOBACILLUS ACIDOPHILUS (FLORANEX) TAB PO SCH ×3 (08:25→17:46)
[2018-09-07] MEDS: ARTIFICIAL TEARS OPB SCH ×3 (08:27→21:28)
[2018-09-07] MEDS: LOSARTAN POTASSIUM 50 MG TAB PO SCH (08:28)
[2018-09-07] MEDS: LOSARTAN POTASSIUM 25 MG TAB PO SCH (08:29)
[2018-09-07] MEDS: PHENYTOIN SODIUM ER 100 MG CAP PO SCH ×2 (08:29→21:27)
[2018-09-07] MEDS: FOLIC ACID 400 MCG TAB PO SCH (08:30)
[2018-09-07] MEDS: levETIRAcetam 500 MG TAB PO SCH ×2 (08:30→21:26)
[2018-09-07] MEDS: POTASSIUM CHLORIDE 20 MEQ TABCR PO SCH (08:30)
[2018-09-07] MEDS: SODIUM CHLORIDE 5% OP SOLN 15 ML BTL OPB SCH ×2 (08:31→21:28)
[2018-09-07] MEDS: AMLODIPINE BESYLATE 5 MG TAB PO SCH ×2 (08:31→21:26)
[2018-09-07] MEDS: NEPHROCAPS PO SCH (08:31)
[2018-09-07] MEDS: PANTOprazole 40 MG TAB PO SCH (08:32)
[2018-09-07] MEDS: CLOPIDOGREL BISULFATE 75 MG TAB PO SCH (08:32)
[2018-09-07] MEDS: CARBIDOPA/LEVODOPA 25/100MG TAB PO SCH ×4 (08:33→21:25)
[2018-09-07] MEDS: METOPROLOL SUCC 50MG EXT REL TAB PO SCH (08:34)
[2018-09-07] MEDS: METHENAMINE HIPPURATE 1 GM TAB PO SCH (08:34)
[2018-09-07] MEDS: CHOLECALCIFEROL 1,000 UNITS TAB PO SCH (08:34)
[2018-09-07] MEDS: POLYETHYLENE (MIRALAX) 17 GM PACK PO SCH (09:00)
[2018-09-07] MEDS: DOCUSATE SODIUM 100 MG CAP PO SCH (09:00)
[2018-09-07] MEDS: ERTAPENEM SODIUM 1,000 MG in SODIUM CHLORIDE 0.9% 50 ML IV SCH (14:10)
--- NOTE | 2018-09-07 20:36 | Hospitalist Progress Note ---
Date of Service September 07, 2018 Assessment & Plan (1) Pneumonia: Clinically resolved. Exam unremarkable. CXR with LLL infiltrate at admission. Questionable aspiration event prior to admission. Also lives in SNF and was hospitalized within last 90 days. Day #6 of 7 of Abx (had received 2-3 days of zosyn, then changed to ertapenem - day #3 of latter). Continue total 7-10 days of Rx. (2) UTI (urinary tract infection), bacterial: h/o ESBL e. coli UTIs. appears colonized with e.coli. final urine cx indeed with ESBL e.coli. colony count from 09/02 was 30,000 CFU; 08/29/18 colony count was >100,000. she had been receiving bactrim at SNF so it appears the e.coli was partially treated. VERY difficult to know if just colonization or true pathogen. saw Dr Trevino, urology, in early August for recurrent UTIs. placed on methenamine for UTI proph - continue such. today is day #3 of ertapenem; would recommend 7 full days of once daily IV ertapenem. spoke with SW -- we could finish course of this medication at SNF. (3) Metabolic encephalopathy: likely due to LLL pneumonia +/- UTI supportive care again improved today (4) Acute kidney injury superimposed on chronic kidney disease: MADISON resolved CKD stage 3 at baseline with typical CrCl <60 (5) Essential hypertension: Continue amlodipine BID (increased this admission), losartan, and metoprolol. I suspect her labile BPs are due to autonomic activation from parkinson's disease overall control is improved with smoother trend (6) Seizure disorder: no seizures Continue current medications (7) Parkinson disease: Continue sinemet Has dementia likely due to her PD (8) Diabetes mellitus: Continue Levemir at bedtime and novolog sliding scale coverage. continues to remain controlled. (9) History of stroke: continue Plavix for secondary prevention (10) DVT prophylaxis: Lovenox subcu 30mg daily updated daughter at bedside on 09/06/18 she is comfortable with plan to release her mother back to SNF and finish IV ertapenem there hopefully d/c tomorrow on 09/08/18 pending insurance auth Subjective patient was awake watching a game show when I entered her room. she conversed with me with fluent speech. knew it was the 07 of September and that she was in the hospital. appetite fair today. garcia removed. she offered no complaints. she asked if she could sit in the chair rather than be in bed. Review of Systems Respiratory: no cough and no dyspnea Cardiovascular: no chest pain Gastrointestinal: no abdominal pain Physical Exam Constitutional: average body habitus; no acute distress mentation much improved relative to earlier this week ENMT: external ear and nose normal, oropharynx normal Mouth: + dry oral mucous membranes Respiratory: no respiratory distress Auscultation: no crackles and no wheezes Cardiovascular: Rate/Rhythm: regular rate and regular rhythm Heart Sounds: normal S1 and normal S2; no murmur Vessels: posterior tibial pulses present and dorsalis pedis pulses present; no JVD Gastrointestinal (Abdomen): normal bowel sounds, soft, nontender, no hepatosplenomegaly Skin: no rashes, warm and dry Neurologic: Motor/Sensory: + tremor (baseline) Psychiatric: Orientation: alert, oriented to person and oriented to place; + not oriented to time (didn't know the year but knew the date) Results & Data Vital Signs (Past 12 Hours) Vital Signs Temp Pulse BP Pulse Ox 09/07/18 16:02 36.2 C L 65 143/77 H 97 Laboratory Results Laboratory Results - last 24 hr 09/07/18 09/07/18 09/07/18 07:00 07:58 11:40 Sodium 139 Potassium 3.9 Chloride 109 H Carbon Dioxide 23 Anion Gap 7.0 BUN 15 Creatinine 0.78 Est Cr Clr Drug Dosing 57.5 Est GFR ( Amer) 82.6 Est GFR (Non-Af Amer) 71.3 BUN/Creatinine Ratio 18.8 Glucose 80 POC Glucose 81 126 H Calcium 9.4 Magnesium 2.0 09/07/18 09/07/18 16:18 19:58 Sodium Potassium Chloride Carbon Dioxide Anion Gap BUN Creatinine Est Cr Clr Drug Dosing Est GFR ( Amer) Est GFR (Non-Af Amer) BUN/Creatinine Ratio Glucose POC Glucose 81 112 H Calcium Magnesium PG Care Time/CCT Total # of Minutes Spent Total Time Spent with Patient: Total time spent is greater than 50% in coordination of care (as documented) at patient's floor/unit and/or counseling patient: (1) Pneumonia Laterality: right Lung location: unspecified part of lung Pneumonia type: due to unspecified organism Qualified Code(s): J18.9 - Pneumonia, unspecified organism (2) Diabetes mellitus Diabetes mellitus type: type 2 Diabetes mellitus fci insulin use: with fci use Diabetes mellitus complication status: without complication Qualified Code(s): E11.9 - Type 2 diabetes mellitus without complications; Z79.4 - predatory animal exterminator (current) use of insulin
[2018-09-07] MEDS: ENOXAPARIN INJ 30 MG/0.3 ML SYR SQ SCH (21:26)
[2018-09-07] MEDS: INSULIN DETEMIR FLEXPEN/FLEX TOUCH 100 UNITS/ML 3ML SQ SCH (21:27)
[2018-09-08] MEDS: [UNRECOGNIZED DRUG - REMARK] SCH ×3 (00:10→13:59)
[2018-09-08] MEDS: LOSARTAN POTASSIUM 50 MG TAB PO SCH (08:57)
[2018-09-08] MEDS: SODIUM CHLORIDE 5% OP SOLN 15 ML BTL OPB SCH (08:58)
[2018-09-08] MEDS: METOPROLOL SUCC 50MG EXT REL TAB PO SCH (08:58)
[2018-09-08] MEDS: LACTOBACILLUS ACIDOPHILUS (FLORANEX) TAB PO SCH ×3 (08:58→17:28)
[2018-09-08] MEDS: CLOPIDOGREL BISULFATE 75 MG TAB PO SCH (08:58)
[2018-09-08] MEDS: CARBIDOPA/LEVODOPA 25/100MG TAB PO SCH ×3 (08:59→17:28)
[2018-09-08] MEDS: ARTIFICIAL TEARS OPB SCH ×2 (08:59→13:59)
[2018-09-08] MEDS: LOSARTAN POTASSIUM 25 MG TAB PO SCH (09:00)
[2018-09-08] MEDS: PHENYTOIN SODIUM ER 100 MG CAP PO SCH (09:00)
[2018-09-08] MEDS: levETIRAcetam 500 MG TAB PO SCH (09:00)
[2018-09-08] MEDS: POTASSIUM CHLORIDE 20 MEQ TABCR PO SCH (09:01)
[2018-09-08] MEDS: AMLODIPINE BESYLATE 5 MG TAB PO SCH (09:01)
[2018-09-08] MEDS: NEPHROCAPS PO SCH (09:01)
[2018-09-08] MEDS: PANTOprazole 40 MG TAB PO SCH (09:01)
[2018-09-08] MEDS: INSULIN ASPART 100 UNITS/ML 3 ML PEN SC SCH ×3 (09:34→18:10)
[2018-09-08] MEDS: POLYETHYLENE (MIRALAX) 17 GM PACK PO SCH (09:35)
[2018-09-08] MEDS ORDERED: BISACODYL 10 MG SUPP PR STA (11:01)
[2018-09-08] MEDS: ERTAPENEM SODIUM 1,000 MG in SODIUM CHLORIDE 0.9% 50 ML IV SCH (13:59)
--- NOTE | 2018-09-08 19:27 | Discharge Summary ---
Date of Service date of admission - September 02, 2018 date of discharge - September 08, 2018 Admission HPI Per Admitting Provider 83-year-old female from [facility] with a history of seizure disorder, Parkinson's disease, chronic diastolic CHF, chronic kidney disease stage 3, prior CVA, hypertension, and parkinson's-related dementia. She is currently being treated with Bactrim for an ESBL E. coli UTI. She was hospitalized about 1 month ago with pneumonia and UTI - latter also 2nd to ESBL e.coli. Her daughter states that she had some nausea and vomiting several days ago and this was associated with coughing and she may have aspirated. Her mental status changed abruptly today and she came to the ED for evaluation. Chest x-ray reveals left lower lobe pneumonia. She is febrile with leukocytosis and acute kidney injury with creatinine 1.4. Lactic acid level is pending. This may be aspiration pneumonia or healthcare associated pneumonia. 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 She is a DNR status. Zosyn and vancomycin have been ordered. Blood cultures have been done. Principal Diagnosis ESBL e.coli UTI; LLL pneumonia Discharge Exam Constitutional average body habitus; no acute distress ENMT Mouth: + dry oral mucous membranes (mild) Respiratory no respiratory distress Auscultation: no crackles and no wheezes Cardiovascular Rate/Rhythm: regular rate and regular rhythm Heart Sounds: normal S1 and normal S2; no murmur Vessels: posterior tibial pulses present and dorsalis pedis pulses present; no JVD Gastrointestinal (Abdomen) normal bowel sounds, soft, nontender, no hepatosplenomegaly Skin no rashes, warm and dry Neurologic Motor/Sensory: + tremor (baseline) Psychiatric Orientation: alert, oriented to person and oriented to place; + not oriented to time Discharge Data Allergies Allergy/AdvReac Type Severity Reaction Status Date / Time No Known Allergies Allergy Verified 09/02/18 15:41 Consultations PT, OT Procedures Performed chest x-ray - probable LLL pneumonia Hospital Course (1) UTI (urinary tract infection), bacterial: 2nd to ESBL e.coli. Outpatient urine culture from 08/29/18 showed a colony count >100,000. Urine culture from 09/02/18 drawn in our ER showed 30,000 CFU. She had been receiving bactrim at [facility] so it appears the e.coli was partially treated at time of admission. Received 2-3 days of IV zosyn then changed to once daily IV ertapenem. Received 4 days of IV ertapenem while here. Recommend 3 more days of IV ertapenem at [facility] via peripheral IV; date of last dose 09/11/18. Blood cultures were NEGATIVE while hospitalized. MADISON and leukocytosis both resolved with treatment above. (2) Pneumonia: Clinically resolved with IV antibiotic therapy. Exam unremarkable and O2 sats normal her entire stay. She never had an O2 requirement. CXR with LLL infiltrate at admission. Questionable aspiration event prior to admission. Also lives in SNF and was hospitalized within last 90 days. Thus, she received broad-spectrum IV antibiotic therapy. She initially received 2-3 days of zosyn, then changed to ertapenem IV thereafter. Received ~7 days of IV antibiotics while hospitalized. (3) Metabolic encephalopathy: Likely due to LLL pneumonia + UTI. Mental status waxed/waned for much of her stay. However, in the 2-3 days before discharge, her speech was clear and more fluent. With that said the patient had multiple, intermittent days of considerable sleepiness and poor appetite. This would be interspersed with better days (fair appetite, less lethargy, more awakefulness, etc). This pattern was seen during her July 2018 hospitalization. Suspect she had delirium in setting of moderate-severe dementia. Dementia is likely due to her advanced Parkinson's disease. (4) Acute kidney injury superimposed on chronic kidney disease: MADISON resolved with IV fluids. Peak Cr 1.4, improving to 0.7 at discharge. She has CKD stage 3 at baseline with typical CrCl <60. (5) Essential hypertension: Like prior hospitalizations the patient had significant lability in her BPs. She would often have systolic readings in the 180-190 range followed by readings in the 120s and 130s systolic. She never had low blood pressure. Her amlodipine was increased to 5mg BID. Her losartan was increased to 50mg BID. Her metoprolol succinate was continued at 100mg daily. 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 This has been recently described in the literature. (6) Seizure disorder: No seizures while hospitalized. Continue current medications including keppra and dilantin. (7) Parkinson disease: Continue sinemet. Has dementia likely due to her PD. Dementia appears to be moderate-severe. (8) Diabetes mellitus: Continue Levemir at bedtime and novolog sliding scale coverage. Continues to remain well-controlled. (9) History of stroke: continue Plavix for secondary prevention (10) Recurrent UTI: Saw Dr Elías Trevino, urology, in early August 2018 for recurrent UTIs. Placed on methenamine daily for UTI proph. Has follow-up in [address] Trevino for this. Suspect that urinary incontinence, bed-bound status, advanced age, and living in SNF all contribute to heightened UTI risk. She had a CT abd/pelvis in July 2018 showing no signs of obstruction, stones, etc. She is likely colonized with the ESBL e.coli. If recurrent UTIs continue consider Infectious Disease consultation. Total Time Total Time Spent Total Time Spent (In Minutes): 40 Total Time Includes: Examination of the Patient, Discharge Planning and Medication Reconciliation Discharge Plan Discharge Items Patient Disposition: Transfer Residential Fac Reason For Visit: LLL PNEUMONIA, UTI Discharge Diagnosis: 1. LLL pneumonia (suspected) - clinically resolved. 2. ESBL e.coli UTI - resolving. 3. altered mental status due to #1 and #2 - improved. 4. chronic parkinson's disease with dementia. Discharge Goals: Diagnostic testing and Therapeutic intervention Activity: Resume your previous activity Non-emergency contact: Primary Care Provider Call non-emergency contact if: you have any medication questions, your symptoms worsen, your pain is not controlled, your pain is worsening and your temperature is above 100.5 Follow-up/Referrals: Minnie Campos [Primary Care Provider] - Diet: Carb Consistent or DM2 Addtl Provider Instructions: From Donny Pineda - hospitalist - Ms Saldana was treated for a suspected LLL pneumonia as well as ESBL e.coli UTI. She received 7 days of IV antibiotic therapy (initially zosyn then later on ertapenem) while here. She had labile blood pressures likely due to her Parkinson's Disease. Several changes in blood pressure medications were made. Her Parkinson's Disease was stable. Mental status improved while here. The prior confusion was probably related to infection. Recommendations - 1. patient should continue with her peripheral IV for the next 3 days. She needs a dose of IV ertapenem 1gm daily on 09/09, 09/10, and 09/11. After her 3rd dose on Monday 09/11 the peripheral IV can be discontinued. 2. probiotics (saccharomyces) daily for 5 days. Can start this on Saturday 09/09. 3. INCREASE amlodipine to 5mg twice a day. 4. INCREASE losartan to 50mg twice a day. 5. CHANGE patient's lasix to 20mg NEEDED for weight gain of more than 2-3 pounds over 1-2 days. Thus, if weights are stable, she does NOT need standing lasix (furosemide). 6. INCREASE the patient's miralax to TWICE A DAY dosing for constipation. Follow-up -- see medical assistant internal medicine of [facility] within 2-3 days. If patient continues with recurrent UTIs please consider Infectious Disease consultation. Return to [facility] if -- * you have fevers over 100.5 degrees * you have worsening abdominal pain, vomiting, or diarrhea * you have worsening shortness of breath or chest pain * any other concerns Prescriptions: New Saccharomyces boulardii 250 mg capsule 250 mg PO DAILY 5 Days Qty: 5 RF: 0 ertapenem 1 gram recon soln 1 gm IV DAILY 3 Days Qty: 3 RF: 0 Continued sodium chloride 5 % Drops 1 drp OPB BID RF: 0 acetaminophen 325 mg Tablet 650 mg PO Q8H PRN (Reason: Fever Or Pain) RF: 0 levetiracetam 500 mg Tablet 500 mg PO BID RF: 0 ketotifen fumarate 0.025 % (0.035 %) Drops 1 drp OPB Q12H RF: 0 clopidogrel 75 mg Tablet 75 mg PO DAILY RF: 0 magnesium hydroxide [Milk of Magnesia] 400 mg/5 mL Suspension 30 ml PO DIRECTED PRN (Reason: Constipation) RF: 0 bisacodyl [Dulcolax (bisacodyl)] 10 mg Suppository 10 mg MT DIRECTED PRN (Reason: Constipation) RF: 0 mirtazapine 15 mg Tablet 15 mg PO HS RF: 0 alum-mag hydroxide-simeth [Antacid Liquid] 200-200-20 mg/5 mL Suspension 30 ml PO Q4H PRN (Reason: Heartburn/Reflux) RF: 0 insulin lispro [Humalog U-100 Insulin] 100 unit/mL Solution 1 sliding scale dose SUBCUT UD PRN (Reason: Hyperglycemia) RF: 0 Renal Caps 1 mg Capsule 1 cap PO DAILY RF: 0 carbidopa-levodopa 25-100 mg Tablet 1.5 tab PO QID RF: 0 Systane Ultra 0.4-0.3 % Drops 1 drp OPB TID RF: 0 Levemir U-100 Insulin 100 unit/mL Solution 2 unit SUBCUT QPM RF: 0 Nuplazid 34 mg capsule 34 mg PO QAM RF: 0 acetaminophen [Tylenol] 325 mg Tablet 650 mg PO QPM RF: 0 Fleet Enema 19-7 gram/118 mL Enema MT DIRECTED PRN (Reason: Constipation) RF: 0 gabapentin 100 mg capsule 100 mg PO DAILY RF: 0 methenamine hippurate 1 gram tablet 1 g PO DAILY RF: 0 ondansetron HCl 4 mg tablet 4 mg PO Q6H PRN (Reason: Nausea And Vomiting) RF: 0 metoprolol succinate 100 mg Tablet Extended Release 24 Hr 100 mg PO DAILY RF: 0 phenytoin sodium extended 100 mg Capsule 100 mg PO BID RF: 0 potassium chloride 20 mEq Tablet,Er Particles/Crystals 20 meq PO DAILY RF: 0 omeprazole 20 mg Tablet,Delayed Release (Dr/Ec) 20 mg PO DAILY RF: 0 hydrocodone-acetaminophen 5-325 mg Tablet 2 tab PO BID Qty: 60 RF: 0 losartan 50 mg Tablet 50 mg PO BID Qty: 60 RF: 11 Changed polyethylene glycol 3350 [Miralax] 17 gram powder in packet 17 gm PO BID Qty: 60 RF: 2 furosemide 20 mg Tablet 20 mg PO DAILY PRN (Reason: Weight Gain) Qty: 30 RF: 0 amlodipine [Norvasc] 5 mg Tablet 5 mg PO BID Qty: 60 RF: 11 Discontinued losartan 50 mg Tablet 50 mg PO DAILY RF: 0 folic acid 400 mcg Tablet 0.4 mg PO DAILY RF: 0 losartan 25 mg Tablet 25 mg PO DAILY RF: 0 docusate sodium 100 mg Capsule 200 mg PO DAILY RF: 0 sulfamethoxazole-trimethoprim 800-160 mg tablet 1 tab PO BID RF: 0 cholecalciferol (vitamin D3) [Vitamin D3] 5,000 unit Tablet 5,000 unit PO DAILY RF: 0 Stand-Alone Forms: [facility] Discharge Orders: Discharge Order (Routine); Ordered 09/08/18 Ordered By: Donny Pineda Skilled Items Patient informed of condition?: Yes DNR: Yes Discharge Level of Care: Skilled Communicable Disease: Yes (esbl e.coli (in urine)) Discharge Prognosis: Stable Admission Data Admit Date/Time: 09/02/18 18:48 Attending Provider: Donny Pineda Admit Provider: Luke Robertson Primary Care Provider: Minnie Campos Other Providers: Chester Mack ; Luke Robertson Service: Medical Other Interventions: Discharge Summary Assessment (RN) Last Done: 09/08/18 16:51 Pending Studies at Discharge: No DC Date/Time DO NOT enter until pt leaves facility: 09/08/18 19:33
== END 2018-09-08 19:33 | DRG 689 ==
LOC: ED 15:18 → SUATTDRO 18:48 → 2S 18:48 → 4E 09-05 13:59

== ENCOUNTER 2019-01-03 02:18 | Inpatient (IN) ==
[2019-01-03] MEDS ORDERED: ACETAMINOPHEN 325 MG TAB PO STA (02:44)
[2019-01-03] MEDS ORDERED: SODIUM CHLORIDE 0.9% 1000ML 1,000 ML IV SCH ×2 (02:45→09:15)
[2019-01-03] MEDS ORDERED: PIPERACILL/TAZOBAC CONSULT ACTIVE PRN (03:12)
[2019-01-03] MEDS ORDERED: PIPERACILLIN/TAZOBACTAM 4.5 GM/120 ML BAG IV ONE (03:12)
[2019-01-03 03:29] LABS: Hematocrit (blood only) 39.8 % (37-47); Mean Corpuscular Hemoglobin 31.6 pg (25-34); Mean Corpuscular Hgb Conc 32.7 g/dL (32-36); Mean Corpuscular Volume 96.6 fL (80-100); Mean Platelet Volume 10.2 fL (7.4-10.4); Platelet Count 268 K/uL (130-400); RDW Coefficient of Variation 13.2 % (11.5-14.5); Red Blood Count 4.12 M/uL (4.2-5.4); White Blood Count 16.68 K/uL (4.8-10.8)
[2019-01-03 03:46] LABS: Alanine Aminotransferase 16 U/L (12-78); Albumin Level 3.6 gm/dl (3.4-5.0); Aspartate Aminotransferase 4 U/L (15-37); BUN Creatinine Ratio 25.5 (10-20); Blood Urea Nitrogen 38 mg/dl (7-18); Calcium 9.3 mg/dl (8.5-10.1); Carbon Dioxide 24 mmol/L (21-32); Chloride 107 mmol/L (98-107); Creatinine Clr Calc Pharmacy 28.8 ml/min; Est GFR (African American) 37.2; Est GFR (Non-African American) 32.1; Glucose 148 mg/dl (70-99); Sodium 138 mmol/L (136-145)
[2019-01-03 03:50] LABS: Albumin Globulin Ratio 0.9 (0.9-2); Alkaline Phosphatase 139 U/L (45-117); Bilirubin,Total 0.4 mg/dl (0.2-1); Total Protein 7.6 gm/dl (6.4-8.2); Troponin I < 0.015 ng/ml (0-0.045)
[2019-01-03 03:53] LABS: Basophils # (auto) 0.02 K/uL (0-0.2); Basophils % (auto) 0.1 %; Eosinophils # (auto) 0.03 K/uL (0-0.5); Eosinophils % (auto) 0.2 %; Immature Granulocytes # (auto) 0.04 K/uL (0.00-0.02); Immature Granulocytes % (auto) 0.2 %; Lymphocytes # (auto) 0.91 K/uL (1.2-3.4); Lymphocytes % (auto) 5.5 %; Monocytes # (auto) 0.75 K/uL (0.11-0.59); Monocytes % (auto) 4.5 %; Neutrophils # (auto) 14.93 K/uL (1.4-6.5); Neutrophils % (auto) 89.5 %; RBC Morphology Unremarkable
[2019-01-03 04:37] LABS: Appearance Urine Cloudy (Clear); Bacteria Urine Automated 4+ (Negative); Bilirubin Urine Negative (Negative); Blood Urine Negative (Negative); Cast Urine Automated 0 /lpf (0-5); Color Urine Yellow; Epithelial Cell Urine Auto 0-5 /lpf (0-5); Glucose Urine UA Negative (Negative); Ketones Urine Negative (Negative); Leukocyte Esterase Urine 3+ (Negative); Nitrite Urine Positive (Negative); Protein Urine Trace (Negative); RBC Urine Automated 0-4 /hpf (0-4); Specific Gravity Urine 1.017 (1.000-1.030); Urobilinogen Urine Negative (Negative); WBC Urine Automated >30 /hpf (0-5); pH Urine 5.5 (4.5-7.5)
[2019-01-03] MEDS ORDERED: IOVERSOL 100ml IV PRN (04:43)
[2019-01-03] MEDS ORDERED: INFLUENZA VACCINE HIGH DOSE 65+ 0.5 ML SYR IM ONE (06:00)
[2019-01-03] MEDS ORDERED: LORazepam 0.5 MG/1 ML VIAL IV STA (06:05)
--- NOTE | 2019-01-03 06:30 | Emergency Department Note ---
Entered by Nolvia Ling acting as a scribe for Ranjana Monahan MD History of Present Illness General Chief complaint: Abdominal Pain Stated complaint: ABDOMINAL/BACK PAIN Source: patient and family (daughter) History of Present Illness Onset (ago): hour(s) 1 Location: back (low) and abdomen Pain Consistency: + other (persistent ) Maximum Pain Intensity: 10 Associated symptoms: no nausea/vomiting Treatments prior to arrival: other (Bactrim) The patient is a 83 year old female who presents to the Emergency Room with complaints of persistent abdominal and low back pain that began 1 hour prior to arrival, per the patient's daughter. The patient's daughter states that the patient was diagnosed with a UTI several days ago and began Bactrim yesterday morning. Per the patient's medical records, the patient's culture grew out ESBL E. coli. The patient woke up one hour ago screaming in pain. The patient denies nausea and vomiting. The patient's daughter states that the patient has a history of drug-resistant UTIs. Per the patient's daughter, the patient has a h istory of Parkinson's disease, Type 2 diabetes, stroke, and seizure disorder. Home Medications Home Medications Medication Instructions Recorded Confirmed Type Renal Caps 1 cap PO DAILY 11/16/17 01/03/19 History Systane Ultra 1 drp OPB TID 11/16/17 01/03/19 History acetaminophen 650 mg PO Q6 PRN MDD 3gm/24hr 11/16/17 01/03/19 History alum-mag hydroxide-simeth [Antacid 30 ml PO Q4H PRN 11/16/17 01/03/19 History Liquid] carbidopa-levodopa 1.5 tab PO QID 11/16/17 01/03/19 History clopidogrel 75 mg PO QAM 11/16/17 01/03/19 History insulin lispro [Humalog U-100 1 sliding scale dose SUBCUT UD PRN 11/16/17 01/03/19 History Insulin] ketotifen fumarate 1 drp OPB Q12H 11/16/17 01/03/19 History levetiracetam 500 mg PO BID 11/16/17 01/03/19 History mirtazapine 15 mg PO HS 11/16/17 01/03/19 History sodium chloride 1 drp OPB BID 11/16/17 01/03/19 History Nuplazid 34 mg PO QAM 07/23/18 01/03/19 History acetaminophen [Tylenol] 650 mg PO QPM 07/23/18 01/03/19 History gabapentin 200 mg PO TID 09/02/18 01/03/19 History methenamine hippurate 1 g PO DAILY 09/02/18 01/03/19 History metoprolol succinate 100 mg PO DAILY 09/02/18 01/03/19 History omeprazole 20 mg PO QPM 09/02/18 01/03/19 History ondansetron HCl 4 mg PO Q6H PRN 09/02/18 01/03/19 History phenytoin sodium extended 100 mg PO BID 09/02/18 01/03/19 History potassium chloride 20 meq PO DAILY 09/02/18 01/03/19 History amlodipine [Norvasc] 5 mg PO BID #60 tab 09/08/18 01/03/19 Rx hydrocodone-acetaminophen 2 tab PO BID #60 tab 09/08/18 01/03/19 Rx losartan 50 mg PO BID #60 tab 09/08/18 01/03/19 Rx polyethylene glycol 3350 [Miralax] 17 gm PO BID #60 ea 09/08/18 01/03/19 Rx sulfamethoxazole-trimethoprim 1 tab PO BID 01/03/19 01/03/19 History Allergies Allergy/AdvReac Type Severity Reaction Status Date / Time No Known Allergies Allergy Verified 01/03/19 04:48 Past Med/Surg History Medical History Seizure disorder (Chronic) Essential hypertension (Chronic) UTI (urinary tract infection), bacterial (Acute) Acute kidney injury superimposed on chronic kidney disease (Acute) Diabetes mellitus (Chronic) Metabolic encephalopathy (Acute) Parkinson disease (Chronic) Pneumonia (Acute) Parkinson disease Seizure Stroke TIA (transient ischemic attack) Family History Other No pertinent family history Social History Preferred Language: [place] Communication Ability: Impaired Merc[employer] Required: No Beliefs That Will Affect Care: None Current Living Situation: [facility] Feels Safe at Home: Yes Smoking Status: Former smoker Second Hand Exposure: No ; Hx Alcohol Use: No Hx Substance Use: No Review of Systems See HPI for pertinent positives & negatives. and A total of 10 systems reviewed and were otherwise negative Physical Exam Vital Signs Vital Signs - 24 hr 01/03/19 02:27 01/03/19 02:31 01/03/19 02:46 Temperature 37.8 C H Temperature Source Oral Sepsis Recent Fever Within 48 Hours Yes Sepsis New/Unexplained Change in Mental Status No Sepsis Action Taken by Nursing No Action Required Pulse Rate 77 75 75 Pulse Rate from SpO2 Sensor 75 75 Respiratory Rate 18 14 16 Respiratory Effort / Characteristics Non-Labored Spontaneous Respiratory Depth Normal Respiratory Pattern Regular Blood Pressure 173/67 H 165/75 H Blood Pressure Mean 102 105 Blood Pressure Position Lying Pulse Oximetry 95 93 93 Oxygen Delivery Method Room Air Room Air Room Air 01/03/19 03:00 01/03/19 03:05 01/03/19 03:30 Temperature Temperature Source Sepsis Recent Fever Within 48 Hours Sepsis New/Unexplained Change in Mental Status Sepsis Action Taken by Nursing Pulse Rate 75 72 Pulse Rate from SpO2 Sensor 72 Respiratory Rate 23 17 Respiratory Effort / Characteristics Respiratory Depth Respiratory Pattern Blood Pressure Blood Pressure Mean Blood Pressure Position Pulse Oximetry 94 91 Oxygen Delivery Method Room Air 01/03/19 03:34 01/03/19 04:00 01/03/19 04:12 Temperature 37.7 C H Temperature Source Oral Sepsis Recent Fever Within 48 Hours Sepsis New/Unexplained Change in Mental Status Sepsis Action Taken by Nursing Pulse Rate 71 70 Pulse Rate from SpO2 Sensor 71 70 Respiratory Rate 17 16 Respiratory Effort / Characteristics Respiratory Depth Respiratory Pattern Blood Pressure Blood Pressure Mean Blood Pressure Position Pulse Oximetry 93 93 Oxygen Delivery Method Room Air 01/03/19 04:23 01/03/19 04:30 01/03/19 04:31 Temperature Temperature Source Sepsis Recent Fever Within 48 Hours Sepsis New/Unexplained Change in Mental Status Sepsis Action Taken by Nursing Pulse Rate 71 69 Pulse Rate from SpO2 Sensor 72 69 Respiratory Rate 15 15 Respiratory Effort / Characteristics Respiratory Depth Respiratory Pattern Blood Pressure 162/51 H 124/39 L Blood Pressure Mean 88 67 Blood Pressure Position Pulse Oximetry 92 Oxygen Delivery Method 01/03/19 05:00 01/03/19 05:01 01/03/19 05:30 Temperature 36.7 C Temperature Source Sepsis Recent Fever Within 48 Hours Sepsis New/Unexplained Change in Mental Status Sepsis Action Taken by Nursing Pulse Rate 73 71 73 Pulse Rate from SpO2 Sensor 73 73 73 Respiratory Rate 13 20 17 Respiratory Effort / Characteristics Respiratory Depth Respiratory Pattern Blood Pressure Blood Pressure Mean Blood Pressure Position Pulse Oximetry 96 95 94 Oxygen Delivery Method 01/03/19 06:00 01/03/19 06:02 01/03/19 06:04 Temperature 37.3 C Temperature Source Sepsis Recent Fever Within 48 Hours Sepsis New/Unexplained Change in Mental Status Sepsis Action Taken by Nursing Pulse Rate 74 73 73 Pulse Rate from SpO2 Sensor 74 73 74 Respiratory Rate 24 16 Respiratory Effort / Characteristics Respiratory Depth Respiratory Pattern Blood Pressure 174/61 H Blood Pressure Mean 98 Blood Pressure Position Pulse Oximetry 91 Oxygen Delivery Method Room Air Vital signs reviewed. General: Elderly, chronically ill-appearing 83 year old female, in no significant distress. HEENT: No scleral icterus, PERRLA, neck supple. Atraumatic. Cardiovascular: Regular rate and rhythm, no extra sounds. Pulmonary: Clear to auscultation bilaterally, normal work of breathing. Abdomen: Mild tenderness to palpation of the left lower abdomen and right flank. Soft, nondistended, positive bowel sounds. Musculoskeletal: Atraumatic, no peripheral edema. Neurologic: Patient awake alert and agitated. Moves all extremities equally. Skin: Warm, dry, no rash Course 0235: Past medical records reviewed. The patient was evaluated in room A10. A complete history and physical exam was performed. 0547: I discussed the case with Dr. Cantu[facility] Hospitalist who accepts the patient for further evaluation. Administered Medications Sodium Chloride (Nss 1000ml) 1,000 mls @ 125 mls/hr IV .Q8H JA Stop: 02/02/19 02:44 Last Admin: 01/03/19 03:35 Dose: 125 mls/hr Documented by: [id number] Ioversol (Optiray 320 100ml) 100 ml IV ONCE PRN PRN Reason: Interaction Checking Stop: 01/07/19 04:42 Last Admin: 01/03/19 04:43 Dose: 93 ml Documented by: [id number] Miscellaneous Information (Consult) 1 ea N/A UD PRN PRN Reason: Consult Stop: 02/02/19 03:11 Last Admin: 01/03/19 03:35 Dose: 1 ea Documented by: [id number] Discontinued Medications Acetaminophen (Tylenol) 650 mg PO NOW STA Stop: 01/03/19 02:45 Last Admin: 01/03/19 03:34 Dose: 650 mg Documented by: [id number] Piperacillin Sod/Tazobactam Sod (Zosyn) 4.5 gm in 120 mls @ 240 mls/hr IV NOW ONE Stop: 01/03/19 03:41 Last Infusion: 01/03/19 04:04 Dose: 0 mls/hr Documented by: [id number] Admin: 01/03/19 03:34 Dose: 240 mls/hr Documented by: [id number] Lorazepam (Ativan) 0.5 mg in 1 mls @ 1 mls/min IV NOW STA Stop: 01/03/19 06:06 Last Admin: 01/03/19 06:11 Dose: 1 mls/min Documented by: [id number] Medical Decision Making Differential Diagnosis Differential diagnoses includes but is not limited to gastritis, peptic ulcer d isease, GERD, gallbladder disease, pancreatitis, small bowel obstruction, acute coronary syndrome, pericarditis, ischemic bowel, irritable bowel disease, irritable bowel syndrome, appendicitis, diverticulitis, malignancy, hernia, urinary tract infection, torsion, /ectopic , perforation, trauma, infectious. Medical Records Attestation: I reviewed the patient's medical records. Home Medications Current Medication List: was personally reviewed by me Laboratory Data Attestation: I reviewed the patient's lab results. Result diagrams: 01/03/19 03:05 01/03/19 03:05 Lab Results 01/03/19 01/03/19 01/03/19 Range/Units 03:05 03:05 03:17 WBC 16.68 H (4.8-10.8) K/uL RBC 4.12 L (4.2-5.4) M/uL Hgb 13.0 (12.0-16.0) g/dL Hct 39.8 (37-47) % MCV 96.6 (80-100) fL MCH 31.6 (25-34) pg MCHC 32.7 (32-36) g/dL RDW Std Deviation 46.0 (36.4-46.3) fL RDW Coeff of Enrrique 13.2 (11.5-14.5) % Plt Count 268 (130-400) K/uL MPV 10.2 (7.4-10.4) fL Immature Gran % (Auto) 0.2 % Neut % (Auto) 89.5 % Lymph % (Auto) 5.5 % [place] % (Auto) 4.5 % Eos % (Auto) 0.2 % Baso % (Auto) 0.1 % Immature Gran # (Auto) 0.04 H (0.00-0.02) K/uL Neut # (Auto) 14.93 H (1.4-6.5) K/uL Lymph # (Auto) 0.91 L (1.2-3.4) K/uL [place] # (Auto) 0.75 H (0.11-0.59) K/uL Eos # (Auto) 0.03 (0-0.5) K/uL Baso # (Auto) 0.02 (0-0.2) K/uL RBC Morphology Unremarkable Sodium 138 (136-145) mmol/L Potassium 5.0 (3.5-5.1) mmol/L Chloride 107 (98-107) mmol/L Carbon Dioxide 24 (21-32) mmol/L Anion Gap 7.0 (3-11) BUN 38 H (7-18) mg/dl Creatinine 1.51 H (0.6-1.2) mg/dl Est Cr Clr Drug Dosing 28.8 ml/min Est GFR ( Amer) 37.2 Est GFR (Non-Af Amer) 32.1 BUN/Creatinine Ratio 25.5 H (10-20) Glucose 148 H (70-99) mg/dl Lactate 1.6 (0.4-2.0) mmol/L Calcium 9.3 (8.5-10.1) mg/dl Total Bilirubin 0.4 (0.2-1) mg/dl AST 4 L (15-37) U/L ALT 16 (12-78) U/L Alkaline Phosphatase 139 H (45-117) U/L Troponin I < 0.015 (0-0.045) ng/ml Total Protein 7.6 (6.4-8.2) gm/dl Albumin 3.6 (3.4-5.0) gm/dl Globulin 4.0 (2.5-4.0) gm/dl Albumin/Globulin Ratio 0.9 (0.9-2) Urine Color Urine Appearance (Clear) Urine pH (4.5-7.5) Ur Specific [place] (1.000-1.030) Urine Protein (Negative) Urine Glucose (UA) (Negative) Urine Ketones (Negative) Urine Blood (Negative) Urine Nitrite (Negative) Urine Bilirubin (Negative) Urine Urobilinogen (Negative) Ur Leukocyte Esterase (Negative) Urine WBC (Auto) (0-5) /hpf Urine RBC (Auto) (0-4) /hpf U Hyaline Cast (Auto) (0-5) /lpf U Epithel Cells (Auto) (0-5) /lpf Urine Bacteria (Auto) (Negative) Urine Yeast 01/03/19 Range/Units 04:00 WBC (4.8-10.8) K/uL RBC (4.2-5.4) M/uL Hgb (12.0-16.0) g/dL Hct (37-47) % MCV (80-100) fL MCH (25-34) pg MCHC (32-36) g/dL RDW Std Deviation (36.4-46.3) fL RDW Coeff of Enrrique (11.5-14.5) % Plt Count (130-400) K/uL MPV (7.4-10.4) fL Immature Gran % (Auto) % Neut % (Auto) % Lymph % (Auto) % [place] % (Auto) % Eos % (Auto) % Baso % (Auto) % Immature Gran # (Auto) (0.00-0.02) K/uL Neut # (Auto) (1.4-6.5) K/uL Lymph # (Auto) (1.2-3.4) K/uL [place] # (Auto) (0.11-0.59) K/uL Eos # (Auto) (0-0.5) K/uL Baso # (Auto) (0-0.2) K/uL RBC Morphology Sodium (136-145) mmol/L Potassium (3.5-5.1) mmol/L Chloride (98-107) mmol/L Carbon Dioxide (21-32) mmol/L Anion Gap (3-11) BUN (7-18) mg/dl Creatinine (0.6-1.2) mg/dl Est Cr Clr Drug Dosing ml/min Est GFR ( Amer) Est GFR (Non-Af Amer) BUN/Creatinine Ratio (10-20) Glucose (70-99) mg/dl Lactate (0.4-2.0) mmol/L Calcium (8.5-10.1) mg/dl Total Bilirubin (0.2-1) mg/dl AST (15-37) U/L ALT (12-78) U/L Alkaline Phosphatase (45-117) U/L Troponin I (0-0.045) ng/ml Total Protein (6.4-8.2) gm/dl Albumin (3.4-5.0) gm/dl Globulin (2.5-4.0) gm/dl Albumin/Globulin Ratio (0.9-2) Urine Color Yellow Urine Appearance Cloudy A (Clear) Urine pH 5.5 (4.5-7.5) Ur Specific [place] 1.017 (1.000-1.030) Urine Protein Trace H (Negative) Urine Glucose (UA) Negative (Negative) Urine Ketones Negative (Negative) Urine Blood Negative (Negative) Urine Nitrite Positive A (Negative) Urine Bilirubin Negative (Negative) Urine Urobilinogen Negative (Negative) Ur Leukocyte Esterase 3+ H (Negative) Urine WBC (Auto) >30 H (0-5) /hpf Urine RBC (Auto) 0-4 (0-4) /hpf U Hyaline Cast (Auto) 0 (0-5) /lpf U Epithel Cells (Auto) 0-5 (0-5) /lpf Urine Bacteria (Auto) 4+ H (Negative) Urine Yeast Not Reportable Imaging Data Attestation: I personally reviewed and interpreted this imaging study as follows: My Impression: CHEST X-RAY 1 VIEW: Chronic interstitial changes. Poor inspiratory effort. Mild infiltrative versus atelectatic change along the right lower lung field. Radiologist's Impression: Radiology results as stated below per my review and the radiologist's interpretation: CT ABDOMEN & PELVIS With Contrast: Small hiatal hernia. No hydronephrosis or nephrolithiasis. No ureteral stones. No bladder stones or wall thickening. Diverticulosis of the sigmoid without diverticulitis. No bowel wall thickening or obstruction. Normal appendix. No free air or free fluid. Severe atherosclerosis. Diffuse demineralization of the bones. Multilevel degenerative changes of the spine. Old compression fractures of T12 and L1 status post vertebroplasty. Radiologist: Rajesh Sosa MD Study ready at 04:46 and initial results transmitted at 05:02 ECG Data Attestation: I personally reviewed and interpreted this ECG as follows: Indication: abdominal pain Rate (beats per minute): 72 Rhythm: normal sinus ECG Intervals/blocks: Normal QT ECG ST segments: Normal ST segments Comparison ECG Date: from (09/02/18) Change: the following changes noted (ST segments in anterolateral leads have improved ) Blood Pressure Blood Pressure Findings: Elevated blood pressure Blood Pressure Disposition: Referred to patients primary care provider DINESH Narrative This patient was evaluated and appeared to be in no significant distress. IV access was obtained and laboratory work was drawn. Patient was placed on the chair inspector and leveler. She is found to have a low-grade fever. Patient was hydrated with normal saline solution, given p.o. Tylenol. Records were reviewed and patient has an ESBL E. coli UTI. Blood cultures and lactate were obtained. Lactate is within normal limits. Patient was given IV Zosyn. WBC is found to be 16.6. CT scan of the abdomen pelvis was performed and is read as above. There is chronic change noted, no acute abnormalities identified. She did require 0.5 mg of IV Ativan for agitation. Patient remained stable throughout her stay. Case was [facility] physician group hospitalist, Dr. Chaney for further management. Patient and daughter were informed of the findings and plan. Impression & Plan Acute UTI, Leukocytosis, Fever Discharge Plan Visit Data Chief Complaint: Abdominal Pain Stated Complaint: ABDOMINAL/BACK PAIN ED Provider: Ranjana Monahan Discharge Problem: Acute UTI, Leukocytosis, Fever Patient Disposition: Being Evaluated by Hospitalist Forms Stand Alone Forms: My [facility] Prescriptions Prescriptions: No Action sodium chloride 5 % Drops 1 drp OPB BID RF: 0 acetaminophen 325 mg Tablet 650 mg PO Q6 MDD 3gm/24hr PRN (Reason: Fever Or Pain) RF: 0 levetiracetam 500 mg Tablet 500 mg PO BID RF: 0 ketotifen fumarate 0.025 % (0.035 %) Drops 1 drp OPB Q12H RF: 0 clopidogrel 75 mg Tablet 75 mg PO QAM RF: 0 mirtazapine 15 mg Tablet 15 mg PO HS RF: 0 alum-mag hydroxide-simeth [Antacid Liquid] 200-200-20 mg/5 mL Suspension 30 ml PO Q4H PRN (Reason: Dyspepsia) RF: 0 insulin lispro [Humalog U-100 Insulin] 100 unit/mL Solution 1 sliding scale dose SUBCUT UD PRN (Reason: Hyperglycemia) RF: 0 Renal Caps 1 mg Capsule 1 cap PO DAILY RF: 0 carbidopa-levodopa 25-100 mg Tablet 1.5 tab PO QID RF: 0 Systane Ultra 0.4-0.3 % Drops 1 drp OPB TID RF: 0 Nuplazid 34 mg capsule 34 mg PO QAM RF: 0 acetaminophen [Tylenol] 325 mg Tablet 650 mg PO QPM RF: 0 gabapentin 100 mg capsule 200 mg PO TID RF: 0 methenamine hippurate 1 gram tablet 1 g PO DAILY RF: 0 ondansetron HCl 4 mg tablet 4 mg PO Q6H PRN (Reason: Nausea And Vomiting) RF: 0 metoprolol succinate 100 mg Tablet Extended Release 24 Hr 100 mg PO DAILY RF: 0 phenytoin sodium extended 100 mg Capsule 100 mg PO BID RF: 0 potassium chloride 20 mEq Tablet,Er Particles/Crystals 20 meq PO DAILY RF: 0 omeprazole 20 mg Tablet,Delayed Release (Dr/Ec) 20 mg PO QPM RF: 0 polyethylene glycol 3350 [Miralax] 17 gram powder in packet 17 gm PO BID Qty: 60 RF: 2 hydrocodone-acetaminophen 5-325 mg Tablet 2 tab PO BID Qty: 60 RF: 0 losartan 50 mg Tablet 50 mg PO BID Qty: 60 RF: 11 amlodipine [Norvasc] 5 mg Tablet 5 mg PO BID Qty: 60 RF: 11 sulfamethoxazole-trimethoprim 800-160 mg tablet 1 tab PO BID RF: 0 Referrals Referrals: Minnie Campos [Primary Care Provider] - Discharge Problem: Leukocytosis Qualifiers: Leukocytosis type: unspecified Qualified Code(s): D72.829 - Elevated white blood cell count, unspecified Fever Qualifiers: Fever type: unspecified Qualified Code(s): R50.9 - Fever, unspecified The scribe's documentation has been prepared under my direction and personally reviewed by me in its entirety. I confirm that the note above accurately reflects all work, treatment, procedures, and medical decision making performed by me.
--- NOTE | 2019-01-03 06:31 | XRay Report ---
XR chest 1V portable CLINICAL HISTORY: weakness COMPARISON STUDY: Chest radiograph September 02, 2018. FINDINGS: Lung volumes are mildly diminished. This is unchanged. Right infrahilar opacity favors atel ectasis. There is no evidence for overt pulmonary edema. No pneumothorax or pleural effusion is noted . Cardiomediastinal silhouette is stable. IMPRESSION: No acute cardiopulmonary findings. Right basilar atelectasis. Electronically signed by: Nico Lima M.D. 01/03/2019 6:29 AM
--- NOTE | 2019-01-03 07:14 | CT Scan Report ---
ABDOMEN AND PELVIS CT WITH IV CONTRAST CT DOSE: 771.92 mGy.cm HISTORY: Acute left-sided flank pain with urinary tract infection L flank pain, UTI TECHNIQUE: Multiaxial CT images of the abdomen and pelvis were performed following the IV administrat ion of 93 cc of Optiray 320, A dose lowering technique was utilized adhering to the principles of AL AIDA. COMPARISON STUDY: CT abdomen and pelvis 07/29/2018 FINDINGS: Motion degraded exam. The study is also limited secondary to positioning of the patient's upper extre mities across the abdominal wall. Dependent bibasilar opacities suggestive of atelectasis with bibasi lar bronchial wall thickening. There is no pneumatosis or pneumoperitoneum. Imaged inferior cardiac c hambers are mildly enlarged with coronary arterial and aortic annular calcifications. The previously noted cholelithiasis is not definitively seen on this motion degraded exam. Prominence of the common bile duct appears unchanged and is likely age-related. Unremarkable liver. Spleen and right adrenal gland are unremarkable. Nodular thickening of the left adrenal gland. Moderate pancreat ic atrophy. Mild bilateral cortical thinning of the kidneys. Left-sided renal vascular calcifications . No definite renal or ureteral calculi or obstructive uropathy. Partial distention of the urinary bl adder with mild wall thickening. Unremarkable uterus and adnexa. Extensive calcified plaque of the ab dominal aorta and branch vessels. This finding results in multifocal luminal narrowing, most pronounc ed within the bilateral common and internal iliac arteries with additional multifocal luminal narrowi ng of the bilateral femoral arteries and superior mesenteric artery. There is no adenopathy. Unremark able IVC. Small hiatal hernia. No bowel obstruction or bowel wall thickening. Colonic diverticulosis without ac [place] diverticulitis. Moderate fecal retention. Mildly prominent appendix appears noninflamed. No ascit es or mesenteric inflammation. Soft tissues are unremarkable. Demineralized appearance the bones. Deg enerative changes of the spine, pelvis and hips. Orthopedic hardware of the proximal left femur is pa rtially imaged. Remote T12 and L1 compression deformities with kyphoplasty changes. Mild superior end plate compression of less than 20% at the L5 vertebral body is unchanged from comparison. No acute fr acture identified. IMPRESSION: 1. Motion degraded exam without acute intra-abdominal or intrapelvic abnormality identified. 2. No bowel obstruction or bowel wall thickening. 3. Moderate fecal retention. 4. Small hiatal hernia. 5. Colonic diverticulosis without acute diverticulitis. 6. Additional findings as above. Electronically signed by: Flip Branch M.D. 01/03/2019 7:13 AM
--- NOTE | 2019-01-03 07:59 | History & Physical Report ---
Date of Service January 03, 2019 Assessment & Plan (1) Acute UTI: Admit to inpatient on telemetry Vital signs every 4 hours Gentle IV fluid hydration with normal saline Monitor potassium which is now 5 CBC CMP daily BNP, TSH and procalcitonin pending Ceftriaxone started in the ER but patient resistant to it so it is switched to ertapenem 1 g every 24 hours IV. DVT prophylaxis heparin 5000units every 12h. Full code Disposition Center [facility] Present on Admission?: Yes (2) Leukocytosis: As above leukocytosis is related to the acute urinary tract infection. Treat with antibiotics. Present on Admission?: Yes (3) Altered mental status: Altered mental status related to acute illness. Per her history she she usually has hallucinations and altered mental status when she has urinary tract infection. Will address the primary cause which is urinary tract infection. Oriented patient in the room daily. Present on Admission?: Yes (4) Seizure disorder: Stable at this point. Continue home medicine phenytoin 100 mg p.o. twice daily, Keppra 500 mg p.o. twice daily. Present on Admission?: Yes (5) Essential hypertension: Patient blood pressure is now decreased in the low 120/80 most likely due to current urinary tract infection. Patient does not appear septic. Withhold her blood pressure medicine amlodipine 5 mg p.o. twice daily, losartan 50 mg p.o. twice daily,. Continue with metoprolol succinate 100 mg p.o. daily and hold if heart rate is less than 65. Present on Admission?: Yes (6) Chronic kidney disease, stage 3a: Avoid nephrotoxic agents. Monitor creatinine and GFR daily. Omeprazole on hold due to possible nephrotoxic activity or side effect. Continue renal caps once a day. Present on Admission?: Yes (7) Parkinson disease: Continue carbidopa levodopa 1.5 mg p.o. 4 times daily, continue Nuplazid 34 mg p.o. every morning. Present on Admission?: Yes (8) Diabetes mellitus type 2 in obese: Continue insulin lispro sliding scale. Accu-Cheks before meals and at bedtime. Glycemic control per pharmacy management. Present on Admission?: Yes History of Present Illness Chief Complaint: Urinary tract infection Primary Care Provider: [facility] Patient is a 83 years old female with past medical history of recurrent urinary tract infection, seizure, Parkinson disease, metabolic encephalopathy, diabetes mellitus type 2, CKD stage III ,GERD, hypertension, frequent stroke who was brought from the [facility] ([place], [place]) home by her daughter to the emergency room for altered mental status and concern that patient has recurrent urinary tract infection. Patient daughter said when she has urinary tract infection usually she started to have hallucinations and becomes in call current. Patient has residual with dysarthria from her previous stroke and with altered mental status due to urinary tract infection and hallucinations she she has difficult time answering questions and reviewing the systems. Patient daughter who is sitting next to her bedside said that patient started to receive antibiotics yesterday in the [facility] but that really did not help her. Patient was started on sulfa med oxazole trimethoprim 1 tablet p.o. twice daily, and she was also on methenamine hippurate 1 g p.o. daily. Daughter reports that patient possibly has a fever but she did not measure. Her p.o. intake decreased. Patient daughter denies headache, chest pain, abdominal pain, shortness of breath, hematuria, syncope or near syncope. Patient is bedbound due to her parkinsonian disease and previous stroke. Labs are reviewed: Patient medical records shows that she grew ESBL E. coli in her urine. WBC 16.68, hemoglobin 13, hematocrit 39.8, platelets 268, PT 10.9, INR 1.1, sodium 138, potassium 5, chloride 107, BUN 38, creatinine 1.51, GFR 32, hemoglobin A1c from October 09, 2018 6.2, lactate 1.6, calcium 9.3, AST 4, ALT 16, alkaline phosphatase 139, troponin 0 0.015, Alb umin 3.6. Urine: Cloudy, positive for nitrates, positive for 3+ leukocyte esterase, over 30 white blood cells, 4+ bacteria. No epithelial cells. Urine culture from October 31, 2018 shows E. coli ESBL over 100,000 organism and lactobacillus species over 100,000 organism sensitive to ertapenem. Resistance to ceftriaxone. Decision was made to admit to PCU telemetry for further evaluation and treatment of ESBL E. coli recurrent urinary tract infection. Allergies Allergy/AdvReac Type Severity Reaction Status Date / Time No Known Allergies Allergy Verified 01/03/19 04:48 Home Medications Home Medications Medication Instructions Recorded Confirmed Type Renal Caps 1 cap PO DAILY 11/16/17 01/03/19 History Systane Ultra 1 drp OPB TID 11/16/17 01/03/19 History acetaminophen 650 mg PO Q6 PRN MDD 3gm/24hr 11/16/17 01/03/19 History alum-mag hydroxide-simeth [Antacid 30 ml PO Q4H PRN 11/16/17 01/03/19 History Liquid] carbidopa-levodopa 1.5 tab PO QID 11/16/17 01/03/19 History clopidogrel 75 mg PO QAM 11/16/17 01/03/19 History insulin lispro [Humalog U-100 1 sliding scale dose SUBCUT UD PRN 11/16/17 01/03/19 History Insulin] ketotifen fumarate 1 drp OPB Q12H 11/16/17 01/03/19 History levetiracetam 500 mg PO BID 11/16/17 01/03/19 History mirtazapine 15 mg PO HS 11/16/17 01/03/19 History sodium chloride 1 drp OPB BID 11/16/17 01/03/19 History Nuplazid 34 mg PO QAM 07/23/18 01/03/19 History acetaminophen [Tylenol] 650 mg PO QPM 07/23/18 01/03/19 History gabapentin 200 mg PO TID 09/02/18 01/03/19 History methenamine hippurate 1 g PO DAILY 09/02/18 01/03/19 History metoprolol succinate 100 mg PO DAILY 09/02/18 01/03/19 History omeprazole 20 mg PO QPM 09/02/18 01/03/19 History ondansetron HCl 4 mg PO Q6H PRN 09/02/18 01/03/19 History phenytoin sodium extended 100 mg PO BID 09/02/18 01/03/19 History potassium chloride 20 meq PO DAILY 09/02/18 01/03/19 History amlodipine [Norvasc] 5 mg PO BID #60 tab 09/08/18 01/03/19 Rx hydrocodone-acetaminophen 2 tab PO BID #60 tab 09/08/18 01/03/19 Rx losartan 50 mg PO BID #60 tab 09/08/18 01/03/19 Rx polyethylene glycol 3350 [Miralax] 17 gm PO BID #60 ea 09/08/18 01/03/19 Rx sulfamethoxazole-trimethoprim 1 tab PO BID 01/03/19 01/03/19 History Past Med/Surg History Medical History Seizure disorder (Chronic) Essential hypertension (Chronic) UTI (urinary tract infection), bacterial (Acute) Acute kidney injury superimposed on chronic kidney disease (Acute) Diabetes mellitus (Chronic) Metabolic encephalopathy (Acute) Parkinson disease (Chronic) Pneumonia (Acute) Parkinson disease Seizure Stroke TIA (transient ischemic attack) Family History Other No pertinent family history Social History Preferred Language: Stateless Communication Ability: Impaired Special Agent Secret Service Required: No Beliefs That Will Affect Care: None Current Living Situation: Residential Feels Safe at Home: Yes Smoking Status: Former smoker Second Hand Exposure: No ; Hx Alcohol Use: No Hx Substance Use: No Review of Systems Review of Systems: All systems reviewed & are unremarkable except as noted in HPI & below Physical Exam Constitutional: WD/WN, vitals as above well developed, + ill appearing and + obese Eyes: PERRL, conjunctivae normal, anicteric sclerae ENMT: external ear and nose normal, oropharynx normal Neck: trachea midline, no thyromegaly Respiratory: normal respiratory effort, lungs clear to auscultation Cardiovascular: Heart Sounds: normal S1, normal S2 and + murmur Gastrointestinal (Abdomen): normal bowel sounds, soft, nontender, no hepatosplenomegaly Musculoskeletal: no cyanosis or clubbing, extremities motor strength 5/5 Skin: no rashes, warm and dry Neurologic: Motor/Sensory: + tremor Patient is lying down in the bed. She is hallucinating. She appears to be disoriented in time but oriented in person. Dysarthric speech and weakness from the previous stroke. Psychiatric: Orientation: alert and oriented to person Apperance: + disheveled Eye Contact: + poor eye contact Genitourinary: Positive suprapubic tenderness Lymphatic: no cervical or axillary lymphadenopathy Results & Data Vital Signs (Past 12 Hours) Vital Signs Temp Pulse Pulse Resp BP BP Pulse Ox 01/03/19 07:05 71 16 110/62 100 01/03/19 06:04 37.3 C 73 16 174/61 H 91 01/03/19 06:02 73 24 01/03/19 06:00 74 01/03/19 05:30 73 17 94 01/03/19 05:01 36.7 C 71 20 95 01/03/19 05:00 73 13 96 01/03/19 04:31 124/39 L 01/03/19 04:30 69 15 01/03/19 04:23 71 15 162/51 H 92 01/03/19 04:12 70 16 93 01/03/19 04:00 71 17 93 01/03/19 03:34 37.7 C H 01/03/19 03:30 72 17 91 01/03/19 03:05 94 01/03/19 03:00 75 23 01/03/19 02:46 75 16 93 01/03/19 02:31 75 14 165/75 H 93 01/03/19 02:27 37.8 C H 77 18 173/67 H 95 Code Status & VTE Plan VTE Prophylaxis Plan VTE Prophylaxis will be ordered: Yes PG Care Time/CCT Total # of Minutes Spent Total Time Spent with Patient: Total time spent is greater than 50% in coordination of care (as documented) at patient's floor/unit and/or counseling patient: (1) Leukocytosis Leukocytosis type: unspecified Qualified Code(s): D72.829 - Elevated white blood cell count, unspecified (2) Altered mental status Altered mental status type: transient alteration of awareness Qualified Code (s): R40.4 - Transient alteration of awareness
[2019-01-03] MEDS ORDERED: GLUCOSE 10 TABS/TUBE PO PRN (08:11)
[2019-01-03] MEDS ORDERED: ALUMINUM/MAGNESIUM SUSP 30 ML UDC PO PRN (08:11)
[2019-01-03] MEDS ORDERED: DEXTROSE 50% 50 ML SYRINGE IV PRN (08:11)
[2019-01-03] MEDS ORDERED: ONDANSETRON INJ 2 MG/ML 2 ML VIAL IV PRN (08:11)
[2019-01-03] MEDS ORDERED: MAGNESIUM HYDROXIDE SUSP 30 ML UDC PO PRN (08:11)
[2019-01-03] MEDS ORDERED: CARBOHYDRATES FOR HYPOGLYCEMIA PO PRN (08:11)
[2019-01-03] MEDS ORDERED: GLUCOSE 40% GEL 15 GM TUBE PO PRN (08:11)
[2019-01-03] MEDS ORDERED: GLUCAGON FOR INJ 1 MG VIAL SQ PRN (08:11)
[2019-01-03] MEDS ORDERED: ACETAMINOPHEN 325 MG TAB PO PRN (08:11)
[2019-01-03] MEDS ORDERED: PHARMACY GLYCEMIC MGMT CONSULT PRN (09:05)
--- NOTE | 2019-01-03 09:17 | Pharmacy Report ---
Glycemic Control Consultation - Date of Service January 03, 2019 - Scope Scope: Glycemic Pharmacist consulted glycemic control and to write orders per [facility] inpatient glycemic control protocol - Objective Weight: 70.3 kg Accuchecks BSG (last 24hrs): 01/03/19 01/03/19 03:05 08:23 Glucose 148 H POC Glucose 140 H Laboratory Data (last 24hrs): 01/03/19 03:05 Potassium 5.0 Carbon Dioxide 24 Anion Gap 7.0 Creatinine 1.51 H Est Cr Clr Drug Dosing 28.8 HbA1c: 6.2% on 10/09/18 - Recent Pertinent Medications Outpatient Anti-diabetic Regimen: * Humalog per SSI Risk Factors for Insulin Resistance: * Infection - Assessment & Plan Assessment & Plan: ASSESSMENT: * 83yo T2DM female with adequate outpatient control per recent A1c * Pt admitted for ESBL UTI- started on ertapenem. * Pt is only on SSI for severe hyperglycemia as an outpatient- will hold off on basal insulin inpatient unless BSG >180 * Outpatient SSI is reactive for hyperglycemia - patient may experience additional insulin resistance & hyperglycemia from infection - will use weight based bolus insulin per scale per CF/CR PLAN FOR INPATIENT GLYCEMIC CONTROL: * Basal insulin * Hold at this time- will initiate low dose (10-12 units) Q24hrs if BSGs >180 * Bolus insulin * NovoLog per scale ACHS or Q6hrs while NPO * Goal Range: Low 120 mg/dL - High 150 mg/dL (slightly elevated goal range d/t age) * Correction Factor: 30 mg/dL/unit * Nutritional / Prandial insulin per carb ratio of 1 unit per 10 grams CHO consumed * Please note that the plan above was derived based on current level of insulin resistance and hospital stress. These recommendations are appropriate for inpatient admission only. Plan of care upon discharge will need to be reassessed to avoid potential outpatient hypo/hyperglycemia. Thank you.
[2019-01-03 09:22] LABS: Thyroid Stimulating Hormone 1.04 uIu/ml (0.300-4.500)
[2019-01-03] MEDS: HYDROCODONE/ACETAMOPHEN 5/325MG TAB PO SCH ×2 (10:26→20:57)
[2019-01-03] MEDS: GABAPENTIN 100 MG CAP PO SCH ×3 (10:29→17:04)
[2019-01-03] MEDS: CARBIDOPA/LEVODOPA 25/100MG TAB PO SCH ×4 (10:30→20:56)
[2019-01-03] MEDS: METOPROLOL SUCC 50MG EXT REL TAB PO SCH (10:30)
[2019-01-03] MEDS: NEPHROCAPS PO SCH (10:30)
[2019-01-03] MEDS: levETIRAcetam 500 MG TAB PO SCH ×2 (10:30→20:57)
[2019-01-03] MEDS: CLOPIDOGREL BISULFATE 75 MG TAB PO SCH (10:31)
[2019-01-03] MEDS: HEPARIN SOD 5,000 UNIT/0.5 ML VIAL SQ SCH ×2 (10:32→20:58)
[2019-01-03] MEDS: POTASSIUM CHLORIDE 20 MEQ TABCR PO SCH (10:32)
[2019-01-03] MEDS: ERTAPENEM SODIUM 1,000 MG in SODIUM CHLORIDE 0.9% 50 ML IV SCH (10:34)
[2019-01-03] MEDS: PHENYTOIN SODIUM ER 100 MG CAP PO SCH ×2 (10:34→20:57)
[2019-01-03] MEDS: INSULIN ASPART 100 UNITS/ML 3 ML PEN SC SCH ×3 (12:22→20:56)
[2019-01-03] MEDS: ARTIFICIAL TEARS OPB SCH ×2 (13:52→20:57)
[2019-01-03] MEDS ORDERED: INFLUENZA ADMINISTRATION CHARGE ONE (15:45)
[2019-01-03] MEDS ORDERED: HydrALAZINE 10 MG TAB PO PRN (16:34)
[2019-01-03] MEDS ORDERED: QUETIAPINE FUMARATE 25 MG TABLET PO PRN (18:05)
[2019-01-03] MEDS: MIRTAZAPINE TAB 15 MG TAB PO SCH (20:56)
[2019-01-03] MEDS: POLYETHYLENE (MIRALAX) 17 GM PACK PO SCH (20:57)
[2019-01-03] MEDS: SODIUM CHLORIDE 5% OP SOLN 15 ML BTL OPB SCH (20:58)
[2019-01-03] MEDS ORDERED: HydrALAZINE HCL 20 MG/ML VIAL IV ONE (22:29)
[2019-01-04 06:41] LABS: Basophils # (auto) 0.03 K/uL (0-0.2); Basophils % (auto) 0.4 %; Eosinophils # (auto) 0.03 K/uL (0-0.5); Eosinophils % (auto) 0.4 %; Hematocrit (blood only) 36.3 % (37-47); Hemoglobin 11.9 g/dL (12.0-16.0); Immature Granulocytes # (auto) 0.04 K/uL (0.00-0.02); Immature Granulocytes % (auto) 0.5 %; Lymphocytes # (auto) 1.36 K/uL (1.2-3.4); Lymphocytes % (auto) 18.3 %; Mean Corpuscular Hemoglobin 31.9 pg (25-34); Mean Corpuscular Hgb Conc 32.8 g/dL (32-36); Mean Corpuscular Volume 97.3 fL (80-100); Monocytes # (auto) 0.34 K/uL (0.11-0.59); Monocytes % (auto) 4.6 %; Neutrophils # (auto) 5.64 K/uL (1.4-6.5); Neutrophils % (auto) 75.8 %; Platelet Count 227 K/uL (130-400); RDW Coefficient of Variation 13.4 % (11.5-14.5); RDW Standard Deviation 47.6 fL (36.4-46.3); Red Blood Count 3.73 M/uL (4.2-5.4); White Blood Count 7.44 K/uL (4.8-10.8)
[2019-01-04 07:11] LABS: Albumin Level 3.1 gm/dl (3.4-5.0); BUN Creatinine Ratio 23.5 (10-20); Calcium 9.1 mg/dl (8.5-10.1); Creatinine Clr Calc Pharmacy 38.7 ml/min; Est GFR (African American) 55.8; Est GFR (Non-African American) 48.1; Potassium 4.3 mmol/L (3.5-5.1)
--- NOTE | 2019-01-04 07:12 | Hospitalist Progress Note ---
Date of Service January 04, 2019 Assessment & Plan (1) Acute UTI: Continue admit to inpatient on telemetry Vital signs every 4 hours Gentle IV fluid hydration with normal saline Monitor potassium CBC CMP daily BNP-1295, TSH-1040 and procalcitonin-1.040. Continue ertapenem 1 g every 24 hours IV. DVT prophylaxis heparin 5000units every 12h. Full code Disposition Center [facility] (2) Leukocytosis: As above leukocytosis is related to the acute urinary tract infection. Treat with antibiotics. (3) Altered mental status: Altered mental status related to acute illness. Per her history she she usually has hallucinations and altered mental status when she has urinary tract infection. Continue treatment for urinary tract infection. Oriented patient in the room daily. (4) Seizure disorder: Stable at this point. Continue home medicine phenytoin 100 mg p.o. twice daily, Keppra 500 mg p.o. twice daily.Phenytoin level 6.6. (5) Essential hypertension: Continue Amlodipine 5 mg p.o. twice daily, losartan 50 mg p.o. twice daily. Continue with metoprolol succinate 100 mg p.o. daily and hold if heart rate is less than 65.Started Hydralazine 5 mg QID prn for high BP SBP>160 and DBP>90 when pt is sleepy and at risk of swallowing. (6) Chronic kidney disease, stage 3a: Improved . CR 1.08/GFR 48.1. Avoid nephrotoxic agents. Monitor creatinine and GFR daily. Omeprazole on hold due to possible nephrotoxic activity or side effect. Continue renal caps once a day. (7) Parkinson disease: Continue carbidopa levodopa 1.5 mg p.o. 4 times daily, continue Nuplazid 34 mg p.o. every morning or substitute. (8) Diabetes mellitus type 2 in obese: Continue insulin lispro sliding scale. Accu-Cheks before meals and at bedtime. Glycemic control per pharmacy management. Subjective Seen and examined at the bedside. Per nursing patient had a rough night and in the morning patient was very sleepy. She did not take any pain medicine or sleeping medicine. Patient is arousable. Patient has dysarthria to the due to the metabolic encephalopathy/Parkinson disease and dementia. Patient is poor historian and it is difficult to review systems with her when the her daughter is not present. Patient's daughter is not at the bedside at this time. Patient is a febrile according to the chart review. She has good p.o. intake. Review of Systems Review of Systems: All systems reviewed & are unremarkable except as noted in HPI & below Physical Exam Constitutional: WD/WN, vitals as above well developed, + ill appearing and + obese Eyes: PERRL, conjunctivae normal, anicteric sclerae ENMT: external ear and nose normal, oropharynx normal Neck: trachea midline, no thyromegaly Respiratory: normal respiratory effort, lungs clear to auscultation Cardiovascular: Heart Sounds: normal S1, normal S2 and + murmur Gastrointestinal (Abdomen): normal bowel sounds, soft, nontender, no hepatosplenomegaly Musculoskeletal: no cyanosis or clubbing, extremities motor strength 5/5 Skin: no rashes, warm and dry Neurologic: Motor/Sensory: + tremor Psychiatric: Orientation: alert and oriented to person Apperance: + disheveled Eye Contact: + poor eye contact Lymphatic: no cervical or axillary lymphadenopathy Results & Data Vital Signs (Past 12 Hours) Vital Signs Temp Pulse Resp BP Pulse Ox 01/04/19 07:05 37.3 C 74 20 163/94 H 98 01/04/19 03:14 37.5 C 70 18 121/73 97 01/04/19 01:10 129/47 L 01/03/19 23:56 37.4 C 70 16 187/67 H 96 01/03/19 22:00 179/76 H 01/03/19 21:01 175/73 H 01/03/19 20:00 166/69 H PG Care Time/CCT Total # of Minutes Spent Total Time Spent with Patient: Total time spent is greater than 50% in coordination of care (as documented) at patient's floor/unit and/or counseling patient: (1) Leukocytosis Leukocytosis type: unspecified Qualified Code(s): D72.829 - Elevated white blood cell count, unspecified (2) Altered mental status Altered mental status type: transient alteration of awareness Qualified Code(s): R40.4 - Transient alteration of awareness
[2019-01-04 07:15] LABS: Albumin Globulin Ratio 0.8 (0.9-2); Bilirubin,Total 0.4 mg/dl (0.2-1); Globulin 3.8 gm/dl (2.5-4.0); Total Protein 6.9 gm/dl (6.4-8.2)
--- NOTE | 2019-01-04 07:41 | XRay Report ---
XR chest 1V portable CLINICAL HISTORY: Suspected pulmonary edema COMPARISON STUDY: 01/03/2019 FINDINGS: The cardiac and mediastinal contours remain stable. There is slight interstitial prominence similar to the prior study. There is no overt failure. There is no lobar consolidation. There are no pleural effusions. 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 Electronically signed by: Barrera Brice M.D. 01/04/2019 7:39 AM
[2019-01-04] MEDS: HYDROCODONE/ACETAMOPHEN 5/325MG TAB PO SCH ×2 (08:28→20:57)
--- NOTE | 2019-01-04 08:59 | Pharmacy Report ---
Pharmacy Glycemic Short Note 2 - Date of Service January 04, 2019 - Glycemic Short BSG Results (Last 24 hours): 01/03/19 01/03/19 01/03/19 11:28 16:16 20:16 Glucose POC Glucose 196 H 104 H 125 H 01/04/19 01/04/19 06:07 07:18 Glucose 106 H POC Glucose 108 H CURRENT ORDERS: * Basal insulin: None * Correctional Insulin: Novolog Correction per scale ACHS Goal Range: Low 120 mg/dL - High 150 mg/dL Correction Factor: 30 mg/dL/unit * Prandial insulin: Per carb ratio of 1 unit per 10 grams CHO consumed Outpatient Anti-diabetic Regimen: * Humalog per SSI * A1c = 6.2% 10/09/18 Risk Factors for Insulin Resistance: * Infection ASSESSMENT: 01/04 * BSGs well controlled over last 24 hrs * Fasting BSG 106 this AM w/ no basal insulin on board * Correctional insulin only used once in last 24 hrs. * No carb intake yesterday per nursing documentation. A diet is ordered today. * Will continue current insulin orders and follow BSG pattern today. 01/03 * 83yo T2DM female with adequate outpatient control per recent A1c * Pt admitted for ESBL UTI- started on ertapenem. * Pt is only on SSI for severe hyperglycemia as an outpatient- will hold off on basal insulin inpatient unless BSG >180 * Outpatient SSI is reactive for hyperglycemia - patient may experience additional insulin resistance & hyperglycemia from infection - will use weight based bolus insulin per scale per CF/CR PLAN FOR INPATIENT GLYCEMIC CONTROL: * Basal insulin * None at this time * Bolus insulin * NovoLog per scale ACHS or Q6hrs while NPO * Goal Range: Low 120 mg/dL - High 150 mg/dL * Correction Factor: 30 mg/dL/unit * Nutritional / Prandial insulin per carb ratio of 1 unit per 10 grams CHO consumed PLAN FOR DISCHARGE: * A1c 6.2% is acceptable, may resume out-pt regimen from [facility] on discharge if not experiencing hypoglycemic episodes
[2019-01-04] MEDS: INSULIN ASPART 100 UNITS/ML 3 ML PEN SC SCH ×4 (09:04→21:44)
[2019-01-04 09:26] LABS: Estimated Average Glucose 134 mg/dl; Hemoglobin A1C 6.3 % (4.5-5.6)
[2019-01-04] MEDS: levETIRAcetam 500 MG TAB PO SCH ×3 (09:43→21:01)
[2019-01-04] MEDS: POTASSIUM CHLORIDE 20 MEQ TABCR PO SCH ×2 (09:44→11:31)
[2019-01-04] MEDS: SODIUM CHLORIDE 5% OP SOLN 15 ML BTL OPB SCH ×2 (09:44→21:04)
[2019-01-04] MEDS: CLOPIDOGREL BISULFATE 75 MG TAB PO SCH ×2 (09:45→11:32)
[2019-01-04] MEDS: GABAPENTIN 100 MG CAP PO SCH ×4 (09:45→19:56)
[2019-01-04] MEDS: METOPROLOL SUCC 50MG EXT REL TAB PO SCH ×2 (09:45→11:32)
[2019-01-04] MEDS: PHENYTOIN SODIUM ER 100 MG CAP PO SCH ×3 (09:46→20:59)
[2019-01-04] MEDS: NEPHROCAPS PO SCH ×2 (09:46→11:31)
[2019-01-04] MEDS: CARBIDOPA/LEVODOPA 25/100MG TAB PO SCH ×5 (09:46→21:02)
[2019-01-04] MEDS: HEPARIN SOD 5,000 UNIT/0.5 ML VIAL SQ SCH ×2 (09:47→21:00)
[2019-01-04] MEDS: POLYETHYLENE (MIRALAX) 17 GM PACK PO SCH ×2 (09:47→21:04)
[2019-01-04] MEDS: ARTIFICIAL TEARS OPB SCH ×3 (09:47→21:05)
[2019-01-04] MEDS: ERTAPENEM SODIUM 1,000 MG in SODIUM CHLORIDE 0.9% 50 ML IV SCH (11:08)
[2019-01-04] MEDS: HydrALAZINE HCL 20 MG/ML VIAL IV PRN (11:08)
[2019-01-04] MEDS: SODIUM CHLORIDE 0.9% 1000ML 1,000 ML IV SCH (14:31)
[2019-01-04] MEDS: AMLODIPINE BESYLATE 5 MG TAB PO SCH (19:34)
[2019-01-04] MEDS: LOSARTAN POTASSIUM 50 MG TAB PO SCH (20:59)
[2019-01-04] MEDS: MIRTAZAPINE TAB 15 MG TAB PO SCH (21:02)
[2019-01-05 05:54] LABS: Basophils # (auto) 0.03 K/uL (0-0.2); Basophils % (auto) 0.4 %; Eosinophils # (auto) 0.08 K/uL (0-0.5); Eosinophils % (auto) 1.2 %; Hematocrit (blood only) 32.7 % (37-47); Hemoglobin 10.9 g/dL (12.0-16.0); Immature Granulocytes # (auto) 0.02 K/uL (0.00-0.02); Immature Granulocytes % (auto) 0.3 %; Lymphocytes # (auto) 1.73 K/uL (1.2-3.4); Lymphocytes % (auto) 25.6 %; Mean Corpuscular Hemoglobin 31.8 pg (25-34); Mean Corpuscular Hgb Conc 33.3 g/dL (32-36); Mean Corpuscular Volume 95.3 fL (80-100); Mean Platelet Volume 9.5 fL (7.4-10.4); Monocytes # (auto) 0.58 K/uL (0.11-0.59); Monocytes % (auto) 8.6 %; Neutrophils # (auto) 4.32 K/uL (1.4-6.5); Neutrophils % (auto) 63.9 %; Platelet Count 229 K/uL (130-400); RDW Coefficient of Variation 13.2 % (11.5-14.5); RDW Standard Deviation 45.7 fL (36.4-46.3); Red Blood Count 3.43 M/uL (4.2-5.4); White Blood Count 6.76 K/uL (4.8-10.8)
[2019-01-05 06:39] LABS: Albumin Globulin Ratio 0.9 (0.9-2); BUN Creatinine Ratio 32.9 (10-20); Bilirubin,Total 0.5 mg/dl (0.2-1); Calcium 8.8 mg/dl (8.5-10.1); Creatinine Clr Calc Pharmacy 52.6 ml/min; Est GFR (African American) 81.4; Est GFR (Non-African American) 70.2; Globulin 3.2 gm/dl (2.5-4.0); Potassium 3.5 mmol/L (3.5-5.1); Total Protein 6.2 gm/dl (6.4-8.2)
[2019-01-05] MEDS: SODIUM CHLORIDE 0.9% 1000ML 1,000 ML IV SCH ×2 (07:13→23:22)
[2019-01-05] MEDS: INSULIN ASPART 100 UNITS/ML 3 ML PEN SC SCH ×4 (08:17→21:24)
[2019-01-05] MEDS: METOPROLOL SUCC 50MG EXT REL TAB PO SCH (08:18)
[2019-01-05] MEDS: LOSARTAN POTASSIUM 50 MG TAB PO SCH ×2 (08:18→21:22)
[2019-01-05] MEDS: levETIRAcetam 500 MG TAB PO SCH ×2 (08:18→21:22)
[2019-01-05] MEDS: PHENYTOIN SODIUM ER 100 MG CAP PO SCH ×2 (08:18→21:21)
[2019-01-05] MEDS: HEPARIN SOD 5,000 UNIT/0.5 ML VIAL SQ SCH ×2 (08:18→21:20)
[2019-01-05] MEDS: CLOPIDOGREL BISULFATE 75 MG TAB PO SCH (08:19)
[2019-01-05] MEDS: CARBIDOPA/LEVODOPA 25/100MG TAB PO SCH ×4 (08:19→21:19)
[2019-01-05] MEDS: GABAPENTIN 100 MG CAP PO SCH ×3 (08:19→17:10)
[2019-01-05] MEDS: AMLODIPINE BESYLATE 5 MG TAB PO SCH (08:20)
[2019-01-05] MEDS: SODIUM CHLORIDE 5% OP SOLN 15 ML BTL OPB SCH ×2 (08:20→21:18)
[2019-01-05] MEDS: POTASSIUM CHLORIDE 20 MEQ TABCR PO SCH (08:20)
[2019-01-05] MEDS: NEPHROCAPS PO SCH (08:20)
[2019-01-05] MEDS: POLYETHYLENE (MIRALAX) 17 GM PACK PO SCH ×2 (08:20→20:31)
[2019-01-05] MEDS: ARTIFICIAL TEARS OPB SCH ×3 (08:20→21:22)
[2019-01-05] MEDS: HYDROCODONE/ACETAMOPHEN 5/325MG TAB PO SCH ×2 (08:24→21:17)
[2019-01-05] MEDS: ERTAPENEM SODIUM 1,000 MG in SODIUM CHLORIDE 0.9% 50 ML IV SCH (11:31)
--- NOTE | 2019-01-05 15:03 | Hospitalist Progress Note ---
Date of Service January 05, 2019 Assessment & Plan (1) Acute UTI: Urine culture on 01/03 grew ESBL E. coli. - Continue ertapenem - Per daughter, patient looks better than when she was admitted. (2) Altered mental status: Metabolic encephalopathy related to acute illness. Per her history she she usually has hallucinations and altered mental status when she has urinary tract infection. - Improving with treatment. (3) Seizure disorder: Stable at this point. No inpatient seizures noted. Phenytoin level 6.6 on 01/03; mildly low. No indication that an outpatient seizure caused the presentation. - Continue home phenytoin & Keppra (4) Essential hypertension: BP mildly vince today with it being as high as 195/100 this morning. Improved by afternoon. - Continue amlodipine 5 mg p.o. twice daily, losartan 50 mg p.o. twice daily. - Continue with metoprolol succinate 100 mg p.o. daily - Continue hydralazine 5 mg QID PRN for high BP (5) Chronic kidney disease, stage 3a: Presented with acute kidney failure. Baseline Cr. is normal at 0.8-1.0. Cr was 1.5 on admission (present on arrival). - Improved with IV fluids. - Avoid nephrotoxic agents. - Today Cr is 0.8. (6) Parkinson disease: At baseline. - Continue carbidopa-levodopa QID, Nuplazid 34 mg PO QAM (7) Diabetes mellitus type 2 in obese: A1c of 6.4%. - Continue insulin lispro sliding scale. - Accu-Cheks before meals and at bedtime. - Glycemic control per pharmacy management. (8) DVT prophylaxis: Heparin BID Subjective Overall, doing quite well. She remembers her name, place, and general date. She does remember Dr. Morris from her prior admissions. Reports no fevers/chills, chest pain, shortness of breath, abdominal pain, nausea, or vomiting. Physical Exam Constitutional: + physical limitations and + frail appearing; no acute distress Eyes: EOM intact bilaterally; no conjunctival abnormality ENMT: external ear and nose normal, oropharynx normal Neck: trachea midline, no thyromegaly normal visual inspection Respiratory: normal respiratory effort, lungs clear to auscultation no respiratory distress Cardiovascular: RRR, no murmur, no edema Gastrointestinal (Abdomen): Inspection/Auscultation: abdomen normal to inspection; abdomen not distended Musculoskeletal: no cyanosis or clubbing, extremities motor strength 5/5 Skin: no rashes, warm and dry Neurologic: moves all extremities and awake Psychiatric: Orientation: alert, oriented to person and cooperative Results & Data Vital Signs (Past 12 Hours) Vital Signs Temp Pulse Resp BP BP Pulse Ox Pulse Ox 01/05/19 11:49 36.9 C 65 19 149/49 H 95 01/05/19 09:50 124/43 L 01/05/19 08:00 96 01/05/19 07:30 36.7 C 69 21 195/119 H 94 PG Care Time/CCT Total # of Minutes Spent Total Time Spent with Patient: Total time spent is greater than 50% in coordination of care (as documented) at patient's floor/unit and/or counseling patient: (1) Altered mental status Altered mental status type: transient alteration of awareness Qualified Code(s): R40.4 - Transient alteration of awareness
[2019-01-05] MEDS: MIRTAZAPINE TAB 15 MG TAB PO SCH (21:20)
[2019-01-06] MEDS: HydrALAZINE HCL 20 MG/ML VIAL IV PRN (04:36)
[2019-01-06] MEDS: INSULIN ASPART 100 UNITS/ML 3 ML PEN SC SCH ×4 (08:23→22:15)
[2019-01-06] MEDS: HEPARIN SOD 5,000 UNIT/0.5 ML VIAL SQ SCH ×2 (08:25→22:14)
[2019-01-06] MEDS: HYDROCODONE/ACETAMOPHEN 5/325MG TAB PO SCH ×2 (08:26→22:11)
[2019-01-06] MEDS: POTASSIUM CHLORIDE 20 MEQ TABCR PO SCH (08:27)
[2019-01-06] MEDS: AMLODIPINE BESYLATE 5 MG TAB PO SCH ×2 (08:27→22:13)
[2019-01-06] MEDS: CLOPIDOGREL BISULFATE 75 MG TAB PO SCH (08:27)
[2019-01-06] MEDS: levETIRAcetam 500 MG TAB PO SCH ×2 (08:28→22:14)
[2019-01-06] MEDS: LOSARTAN POTASSIUM 50 MG TAB PO SCH ×2 (08:28→22:13)
[2019-01-06] MEDS: PHENYTOIN SODIUM ER 100 MG CAP PO SCH ×2 (08:28→22:12)
[2019-01-06] MEDS: METOPROLOL SUCC 50MG EXT REL TAB PO SCH (08:28)
[2019-01-06] MEDS: NEPHROCAPS PO SCH (08:29)
[2019-01-06] MEDS: CARBIDOPA/LEVODOPA 25/100MG TAB PO SCH ×4 (08:29→22:13)
[2019-01-06] MEDS: GABAPENTIN 100 MG CAP PO SCH ×3 (08:29→16:46)
[2019-01-06] MEDS: POLYETHYLENE (MIRALAX) 17 GM PACK PO SCH ×2 (08:30→22:12)
[2019-01-06] MEDS: ARTIFICIAL TEARS OPB SCH ×3 (08:30→22:12)
[2019-01-06] MEDS: SODIUM CHLORIDE 5% OP SOLN 15 ML BTL OPB SCH ×2 (08:30→22:12)
[2019-01-06 08:42] LABS: Basophils # (auto) 0.03 K/uL (0-0.2); Basophils % (auto) 0.5 %; Eosinophils # (auto) 0.09 K/uL (0-0.5); Eosinophils % (auto) 1.4 %; Hematocrit (blood only) 34.5 % (37-47); Hemoglobin 11.1 g/dL (12.0-16.0); Immature Granulocytes # (auto) 0.03 K/uL (0.00-0.02); Immature Granulocytes % (auto) 0.5 %; Lymphocytes # (auto) 1.77 K/uL (1.2-3.4); Lymphocytes % (auto) 27.7 %; Mean Corpuscular Hemoglobin 31.4 pg (25-34); Mean Corpuscular Hgb Conc 32.2 g/dL (32-36); Mean Corpuscular Volume 97.7 fL (80-100); Mean Platelet Volume 10.2 fL (7.4-10.4); Monocytes # (auto) 0.51 K/uL (0.11-0.59); Neutrophils # (auto) 3.97 K/uL (1.4-6.5); Neutrophils % (auto) 61.9 %; Platelet Count 232 K/uL (130-400); RDW Coefficient of Variation 13.3 % (11.5-14.5); RDW Standard Deviation 47.1 fL (36.4-46.3); Red Blood Count 3.53 M/uL (4.2-5.4)
[2019-01-06 09:08] LABS: Albumin Level 3.1 gm/dl (3.4-5.0); BUN Creatinine Ratio 28.1 (10-20); Calcium 8.8 mg/dl (8.5-10.1); Creatinine Clr Calc Pharmacy 52.3 ml/min; Est GFR (African American) 78.9; Est GFR (Non-African American) 68.1; Potassium 3.7 mmol/L (3.5-5.1)
[2019-01-06 09:11] LABS: Bilirubin,Total 0.4 mg/dl (0.2-1); Globulin 3.2 gm/dl (2.5-4.0); Total Protein 6.3 gm/dl (6.4-8.2)
[2019-01-06] MEDS: ERTAPENEM SODIUM 1,000 MG in SODIUM CHLORIDE 0.9% 50 ML IV SCH (12:54)
--- NOTE | 2019-01-06 15:40 | Hospitalist Progress Note ---
Date of Service January 06, 2019 Assessment & Plan (1) Acute UTI: Urine culture on 01/03 grew ESBL E. coli. - Continue ertapenem - End date on 01/07 for 5-day course. - Per daughter, patient is still confused; however, improving. (2) Altered mental status: Metabolic encephalopathy related to acute illness. Per her history she she usually has hallucinations and altered mental status when she has urinary tract infection. - Improving with treatment. (3) Seizure disorder: Stable at this point. No inpatient seizures noted. Phenytoin level 6.6 on 01/03; mildly low. No indication that an outpatient seizure caused the presentation. - Continue home phenytoin & Keppra (4) Essential hypertension: BP mildly vince today with it being as high as 195/100 this morning. Improved by afternoon. - Continue amlodipine 5 mg p.o. twice daily, losartan 50 mg p.o. twice daily. - Continue with metoprolol succinate 100 mg p.o. daily - Continue hydralazine 5 mg QID PRN for high BP (5) Chronic kidney disease, stage 3a: Presented with acute kidney failure. Baseline Cr. is normal at 0.8-1.0. Cr was 1.5 on admission (present on arrival). - Improved with IV fluids. - Avoid nephrotoxic agents. - Cr was 0.8 on 01/05. (6) Parkinson disease: At baseline. - Continue carbidopa-levodopa QID, Nuplazid 34 mg PO QAM (7) Diabetes mellitus type 2 in obese: A1c of 6.4%. - Continue insulin lispro sliding scale. - Accu-Cheks before meals and at bedtime. - Glycemic control per pharmacy management. (8) DVT prophylaxis: Heparin BID I spent 35 minutes counseling the patient and discussing the current state, treatment course, and prognosis of his/her disease, including UTI, dementia, Parksinson's. Subjective Still somewhat confused, calling out for "Luz" at times. However, oriented times person and general time. Reports no fevers/chills, chest pain, shortness of breath, abdominal pain, nausea, or vomiting. Physical Exam Constitutional: + physical limitations and + frail appearing; no acute distress Eyes: EOM intact bilaterally; no conjunctival abnormality ENMT: external ear and nose normal, oropharynx normal Neck: trachea midline, no thyromegaly normal visual inspection Respiratory: normal respiratory effort, lungs clear to auscultation no respiratory distress Cardiovascular: RRR, no murmur, no edema Gastrointestinal (Abdomen): Inspection/Auscultation: abdomen normal to inspection; abdomen not distended Musculoskeletal: no cyanosis or clubbing, extremities motor strength 5/5 Skin: no rashes, warm and dry Neurologic: moves all extremities and awake Psychiatric: Orientation: alert, oriented to person and cooperative Results & Data Vital Signs (Past 12 Hours) Vital Signs Temp Pulse Pulse Resp BP BP Pulse Ox 01/06/19 14:46 60 01/06/19 11:33 36.4 C L 63 20 146/52 H 01/06/19 07:47 64 01/06/19 07:24 36.7 C 65 16 188/46 H 96 01/06/19 05:15 142/47 H 01/06/19 04:35 191/81 H 01/06/19 03:54 36.3 C L 64 22 171/89 H 94 PG Care Time/CCT Total # of Minutes Spent Total Time Spent with Patient: Total time spent is greater than 50% in coordination of care (as documented) at patient's floor/unit and/or counseling patient: (1) Altered mental status Altered mental status type: transient alteration of awareness Qualified Code(s): R40.4 - Transient alteration of awareness
[2019-01-06] MEDS: MIRTAZAPINE TAB 15 MG TAB PO SCH (22:14)
[2019-01-07] MEDS: GABAPENTIN 100 MG CAP PO SCH (08:30)
[2019-01-07] MEDS: HYDROCODONE/ACETAMOPHEN 5/325MG TAB PO SCH (08:30)
[2019-01-07] MEDS: levETIRAcetam 500 MG TAB PO SCH (08:31)
[2019-01-07] MEDS: HEPARIN SOD 5,000 UNIT/0.5 ML VIAL SQ SCH (08:31)
[2019-01-07] MEDS: HydrALAZINE HCL 20 MG/ML VIAL IV PRN (08:31)
[2019-01-07] MEDS: CLOPIDOGREL BISULFATE 75 MG TAB PO SCH (08:31)
[2019-01-07] MEDS: ARTIFICIAL TEARS OPB SCH (08:31)
[2019-01-07] MEDS: INSULIN ASPART 100 UNITS/ML 3 ML PEN SC SCH (08:31)
[2019-01-07] MEDS: CARBIDOPA/LEVODOPA 25/100MG TAB PO SCH (08:32)
[2019-01-07] MEDS: LOSARTAN POTASSIUM 50 MG TAB PO SCH (08:32)
[2019-01-07] MEDS: AMLODIPINE BESYLATE 5 MG TAB PO SCH (08:32)
[2019-01-07] MEDS: NEPHROCAPS PO SCH (08:32)
[2019-01-07] MEDS: METOPROLOL SUCC 50MG EXT REL TAB PO SCH (08:32)
[2019-01-07] MEDS: POTASSIUM CHLORIDE 20 MEQ TABCR PO SCH (08:33)
[2019-01-07] MEDS: POLYETHYLENE (MIRALAX) 17 GM PACK PO SCH (08:33)
[2019-01-07] MEDS: SODIUM CHLORIDE 5% OP SOLN 15 ML BTL OPB SCH (08:33)
[2019-01-07] MEDS: PHENYTOIN SODIUM ER 100 MG CAP PO SCH (08:33)
[2019-01-07] MEDS: ERTAPENEM SODIUM 1,000 MG in SODIUM CHLORIDE 0.9% 50 ML IV SCH (11:45)
--- NOTE | 2019-01-07 13:50 | Discharge Summary ---
Date of Service January 07, 2019 Admission HPI Per Admitting Provider Patient is a 83 years old female with past medical history of recurrent urinary tract infection, seizure, Parkinson disease, metabolic encephalopathy, diabetes mellitus type 2, CKD stage III ,GERD, hypertension, frequent stroke who was brought from the [facility] by her daughter to the emergency room for altered mental status and concern that patient has recurrent urinary tract infection. Patient daughter said when she has urinary tract infection usually she started to have hallucinations and becomes in call current. Patient has residual with dysarthria from her previous stroke and with altered mental status due to urinary tract infection and hallucinations she she has difficult time answering questions and reviewing the systems. Patient daughter who is sitting next to her bedside said that patient started to receive antibiotics yesterday in the [facility] but that really did not help her. Patient was started on sulfa med oxazole trimethoprim 1 tablet p.o. twice daily, and she was also on methenamine hippurate 1 g p.o. daily. Daughter reports that patient possibly has a fever but she did not measure. Her p.o. intake decreased. Patient daughter denies headache, chest pain, abdominal pain, shortness of breath, hematuria, syncope or near syncope. Patient is bedbound due to her parkinsonian disease and previous stroke. Labs are reviewed: Patient medical records shows that she grew ESBL E. coli in her urine. WBC 16.68, hemoglobin 13, hematocrit 39.8, platelets 268, PT 10.9, INR 1.1, sodium 138, potassium 5, chloride 107, BUN 38, creatinine 1.51, GFR 32, hemoglobin A1c from October 09, 2018 6.2, lactate 1.6, calcium 9.3, AST 4, ALT 16, alkaline phosphatase 139, troponin 0 0.015, Albumin 3.6. Urine: Cloudy, positive for nitrates, positive for 3+ leukocyte esterase, over 30 white blood cells, 4+ bacteria. No epithelial cells. Urine culture from October 31, 2018 shows E. coli ESBL over 100,000 organism and lactobacillus species over 100,000 organism sensitive to ertapenem. Resistance to ceftriaxone. Decision was made to admit to PCU telemetry for further evaluation and treatment of ESBL E. coli recurrent urinary tract infection. Principal Diagnosis UTI with delirium Discharge Exam Constitutional + physical limitations and + frail appearing; no acute distress Eyes EOM intact bilaterally; no conjunctival abnormality ENMT external ear and nose normal, oropharynx normal Neck trachea midline, no thyromegaly normal visual inspection Respiratory normal respiratory effort, lungs clear to auscultation no respiratory distress Cardiovascular RRR, no murmur, no edema Gastrointestinal (Abdomen) Inspection/Auscultation: abdomen normal to inspection; abdomen not distended Musculoskeletal no cyanosis or clubbing, extremities motor strength 5/5 Skin no rashes, warm and dry Neurologic moves all extremities and awake Psychiatric Orientation: alert, oriented to person and cooperative Discharge Data Allergies Allergy/AdvReac Type Severity Reaction Status Date / Time No Known Allergies Allergy Verified 01/03/19 04:48 Consultations 01/03/19 05:35 ED Decision to Admit Stat Ordered Studies 01/03/19 03:13 CT abd pelvis IV con only Urgent Hospital Course (1) Acute UTI: Urine culture on 01/03 grew ESBL E. coli. - Finished ertapenem on 01/07 for 5-day course. - Per daughter, patient is still confused; however, improving. (2) Altered mental status: Metabolic encephalopathy related to acute illness. Per her history she she usually has hallucinations and altered mental status when she has urinary tract infection. - Improving with treatment. (3) Seizure disorder: Stable at this point. No inpatient seizures noted. Phenytoin level 6.6 on 01/03; mildly low. No indication that an outpatient seizure caused the presentation. - Continue home phenytoin & Keppra (4) Essential hypertension: BP mildly high at times with it being as high as 195/100, though more stable by discharge. - Continue amlodipine 5 mg p.o. twice daily, losartan 50 mg p.o. twice daily. - Continue with metoprolol succinate 100 mg p.o. daily - Will need to monitor and possibly increase meds as able. (5) Chronic kidney disease, stage 3a: Presented with acute kidney failure. Baseline Cr. is normal at 0.8-1.0. Cr was 1.5 on admission (present on arrival). - Improved with IV fluids. - Avoid nephrotoxic agents. - Cr was 0.8 on 01/05. (6) Parkinson disease: At baseline. - Continue carbidopa-levodopa QID, Nuplazid 34 mg PO QAM (7) Diabetes mellitus type 2 in obese: A1c of 6.4%. - Continue sliding scale insulin (8) DVT prophylaxis: Heparin BID Total Time Total Time Spent Total Time Spent (In Minutes): 35 Discharge Plan Discharge Items Patient Disposition: [facility] Reason For Visit: UTI ESBL, ALTERED MENTAL STATUS Discharge Diagnosis: Urinary tract infection with delirium Activity: Resume your previous activity Non-emergency contact: Primary Care Provider Call non-emergency contact if: your symptoms worsen and your temperature is above 101.5 Follow-up/Referrals: Guadalupe,Minnie [Primary Care Provider] - Diet: Carb Consistent or DM2 and Heart Healthy Addtl Attending Provider Instructions: Ms. Saldana was admitted for a UTI. She received IV antibiotics while here which she finished prior to discharge. She had a slow recovery of her mental status, but it was improving on discharge, and she was alert, awake, and conversant. We would recommend some cranberry tablets as this has a slight benefit in preventing E. coli UTIs in women. She reportedly (from her daughter) will not drink cranberry juice. Pending Studies at Discharge: No Stand-Alone Forms: My [facility] Skilled Items Patient informed of condition?: Yes DNR: Yes Discharge Level of Care: Skilled Communicable Disease: Yes (ESBL E. coli) Discharge Prognosis: Improving Lines: None Urinary Catheter: No Medications and DC Order Prescriptions: New cranberry 500 mg capsule 500 mg PO DAILY Qty: 1 RF: 0 Continued sodium chloride 5 % Drops 1 drp OPB BID RF: 0 acetaminophen 325 mg Tablet 650 mg PO Q6 MDD 3gm/24hr PRN (Reason: Fever Or Pain) RF: 0 levetiracetam 500 mg Tablet 500 mg PO BID RF: 0 ketotifen fumarate 0.025 % (0.035 %) Drops 1 drp OPB Q12H RF: 0 clopidogrel 75 mg Tablet 75 mg PO QAM RF: 0 mirtazapine 15 mg Tablet 15 mg PO HS RF: 0 alum-mag hydroxide-simeth [Antacid Liquid] 200-200-20 mg/5 mL Suspension 30 ml PO Q4H PRN (Reason: Dyspepsia) RF: 0 insulin lispro [Humalog U-100 Insulin] 100 unit/mL Solution 1 sliding scale dose SUBCUT UD PRN (Reason: Hyperglycemia) RF: 0 Renal Caps 1 mg Capsule 1 cap PO DAILY RF: 0 carbidopa-levodopa 25-100 mg Tablet 1.5 tab PO QID RF: 0 Systane Ultra 0.4-0.3 % Drops 1 drp OPB TID RF: 0 Nuplazid 34 mg capsule 34 mg PO QAM RF: 0 acetaminophen [Tylenol] 325 mg Tablet 650 mg PO QPM RF: 0 gabapentin 100 mg capsule 200 mg PO TID RF: 0 methenamine hippurate 1 gram tablet 1 g PO DAILY RF: 0 ondansetron HCl 4 mg tablet 4 mg PO Q6H PRN (Reason: Nausea And Vomiting) RF: 0 metoprolol succinate 100 mg Tablet Extended Release 24 Hr 100 mg PO DAILY RF: 0 phenytoin sodium extended 100 mg Capsule 100 mg PO BID RF: 0 potassium chloride 20 mEq Tablet,Er Particles/Crystals 20 meq PO DAILY RF: 0 omeprazole 20 mg Tablet,Delayed Release (Dr/Ec) 20 mg PO QPM RF: 0 polyethylene glycol 3350 [Miralax] 17 gram powder in packet 17 gm PO BID Qty: 60 RF: 2 hydrocodone-acetaminophen 5-325 mg Tablet 2 tab PO BID Qty: 60 RF: 0 losartan 50 mg Tablet 50 mg PO BID Qty: 60 RF: 11 amlodipine [Norvasc] 5 mg Tablet 5 mg PO BID Qty: 60 RF: 11 Discontinued sulfamethoxazole-trimethoprim 800-160 mg tablet 1 tab PO BID RF: 0 Discharge Orders: Discharge Order (Routine); Ordered 01/07/19 Ordered By: Chester Mack Admission Data Admit Date/Time: 01/03/19 07:28 Attending Provider: Chester Mack Admit Provider: Lisa Alanis Primary Care Provider: Minnie Campos Other Providers: Chester Mack ; Minnie Campos Other Interventions: Discharge Summary Assessment (RN) Last Done: 01/07/19 12:28 DC Date/Time DO NOT enter until pt leaves facility: 01/07/19 13:30
== END 2019-01-07 13:30 | DRG 689 ==
LOC: ED 02:18 → 2E 07:28 → SUATTDRO 07:28 → 2E 07:51